=== PATIENT | female | born 1950 | race Caucasian/White ===

== ENCOUNTER 2017-12-07 14:27 | Inpatient (IN) | payer MEDICARE, OTHER ==
--- NOTE | 2017-12-07 14:56 | PDOC ---
Rapid Medical Evaluation Chief Complaint: Pain Time Seen by Provider: 12/07/17 14:55 Medical Evaluation: 12/07/17 14:55 The patient presents with a chief complaint of: abdominal pain I have performed a brief in-person evaluation of this patient. Pertinent physical exam findings: vss, pt has labs shows anemia, no blood in stool I have ordered the following: labs, type and screen The patient will proceed to the ED for further evaluation. Discharge Disposition - Referrals Referrals: Jessica Segal MD [Primary Care Provider] - - Patient Instructions - Post Discharge Activity
[2017-12-07] MEDS ORDERED: SUCRALFATE 1 GM TABLET (FP) PO ONE (15:49)
[2017-12-07] MEDS ORDERED: FAMOTIDINE IV 20 MG/12 ML VIAL IVPUSH ONE (15:49)
[2017-12-07 15:54] LABS: BASO % 0.8 % (0-2.0); EOS % 2.7 % (0-4.5); HEMATOCRIT 16.3 % (32.4-45.2); LYMPH % 12.4 % (8-40); MCH 36.1 pg (25.7-33.7); MCHC 34.9 g/dl (32.0-36.0); MEAN CELL VOLUME 103.3 fl (80-96); MEAN PLT VOLUME 6.7 fl (7.5-11.1); MONO % 10.7 % (3.8-10.2); NEUT % 73.4 % (42.8-82.8); PLATELET COUNT 186 K/MM3 (134-434); RBC 1.58 M/mm3 (3.60-5.2); RDW 16.7 % (11.6-15.6); WHITE BLOOD COUNT 2.5 K/mm3 (4.0-10.0)
[2017-12-07 16:00] LABS: HEMOGLOBIN 5.7 GM/dL (10.7-15.3)
--- NOTE | 2017-12-07 16:00 | PDOC ---
History of Present Illness - General History Source: Patient, Family - History of Present Illness Timing/Duration: reports: other Abdominal Pain Onset Location: reports: epigastric <Lanny MontagueRicardo - Last Filed: 12/07/17 18:38> <Светлана Carey - Last Filed: 12/14/17 11:26> - General Chief Complaint: Pain Stated Complaint: ABD PAIN/LOW H/H Time Seen by Provider: 12/07/17 14:55 Past History - Past Medical History COPD: No Diabetes: Yes HTN: Yes - Suicide/Smoking/Psychosocial Hx Smoking History: Never smoked Information on smoking cessation initiated: No Hx Alcohol Use: No Drug/Substance Use Hx: No Substance Use Type: None <SlovakAshley - Last Filed: 12/07/17 18:38> <Светлана Carey - Last Filed: 12/14/17 11:26> - Past Medical History Allergies/Adverse Reactions: Allergies Allergy/AdvReac Type Severity Reaction Status Date / Time No Known Allergies Allergy Verified 12/07/17 14:57 Home Medications: Ambulatory Orders NK [No Known Home Medication] 12/07/17 Review of Systems - Review of Systems Constitutional: No: Chills, Fever, Malaise, Weakness, Unexplained wgt Loss Respiratory: No: Shortness of Breath Cardiac (ROS): No: Chest Pain, Lightheadedness, Palpitations, Syncope ABD/GI: Yes: Constipated, Abdominal cramping. No: Diarrhea, Nausea, Rectal Bleeding, Vomiting, Tarry Stools <Lanny MontagueSusieYanet - Last Filed: 12/07/17 18:38> *Physical Exam - Vital Signs Last Vital Signs Temp Pulse Resp BP Pulse Ox 99.1 F 80 18 125/67 100 12/07/17 14:55 12/07/17 14:55 12/07/17 14:55 12/07/17 14:55 12/07/17 14:55 - Physical Exam General Appearance: Yes: Appropriately Dressed. No: Apparent Distress HEENT: positive: Normal Voice Neck: positive: Supple Respiratory/Chest: negative: Respiratory Distress Gastrointestinal/Abdominal: positive: Soft. negative: Tender Rectal Exam: positive: heme negative stool, normal exam. negative: melena Integumentary: positive: Dry, Warm Neurologic: positive: Fully Oriented, Alert, Normal Mood/Affect <SlovakLannyKayleen - Last Filed: 12/07/17 18:38> - Vital Signs Last Vital Signs Temp Pulse Resp BP Pulse Ox 98 F 71 20 146/72 99 12/14/17 06:06 12/14/17 06:07 12/14/17 06:06 12/14/17 06:06 12/14/17 06:07 <Светлана Carey - Last Filed: 12/14/17 11:26> Heart Score/ECG Review - ECG Intrepretation Comment:: 12/07/17 17:24 Twelve-lead EKG was performed and reviewed by me. There is normal sinus rhythm with a normal rate. The axis is normal. The intervals are normal. There are no ST or T wave abnormalities. Impression: Normal twelve-lead EKG <SlovakLannyKayleen - Last Filed: 12/07/17 18:38> ED Treatment Course - LABORATORY CBC & Chemistry Diagram: 12/07/17 15:47 12/07/17 15:47 <SlovakAshley - Last Filed: 12/07/17 18:38> - LABORATORY CBC & Chemistry Diagram: 12/14/17 06:30 12/14/17 06:40 - ADDITIONAL ORDERS Additional order review: 12/07/17 15:47 RBC 1.58 L MCV 103.3 H MCHC 34.9 RDW 16.7 H MPV 6.7 L Neutrophils % 73.4 Lymphocytes % 12.4 Monocytes % 10.7 H Eosinophils % 2.7 Basophils % 0.8 - Medications Given in the ED: ED Medications Discontinued Medications Generic Name Dose Route Start Last Admin Trade Name Mehrdadq PRN Reason Stop Dose Admin Acetaminophen 650 mg 12/07/17 18:35 12/07/17 18:35 Tylenol - PO 12/07/17 18:36 650 mg ONCE ONE Administration Acetaminophen 650 mg 12/07/17 21:18 12/07/17 22:21 Tylenol - PO 12/07/17 21:19 650 mg ONCE ONE Administration Acetaminophen 650 mg 12/11/17 06:39 12/11/17 06:47 Tylenol - PO 12/11/17 06:40 650 mg ONCE ONE Administration Amlodipine Besylate 5 mg 12/09/17 10:00 12/10/17 10:00 Norvasc - PO 5 mg DAILY NEENA Administration Bisacodyl 20 mg 12/11/17 12:00 12/11/17 11:39 Dulcolax - PO 12/11/17 12:01 Not Given ONCE ONE Bisacodyl 20 mg 12/13/17 17:15 12/13/17 17:28 Dulcolax - PO 12/13/17 17:16 20 mg ONCE ONE Administration Furosemide 20 mg 12/08/17 12:45 12/08/17 12:50 Lasix Injection - IVPUSH 12/08/17 12:46 20 mg ONCE ONE Administration Famotidine 20 mg in 12 mls @ 144 mls/hr 12/07/17 15:49 12/07/17 16:40 Pepcid 20 Mg/12 Ml Push IVPUSH 12/07/17 15:53 144 mls/hr ONCE ONE Administration Sodium Chloride 500 mls @ 500 mls/hr 12/07/17 16:18 12/07/17 16:40 Normal Saline - IV 12/07/17 17:17 500 mls/hr ASDIR STA Administration Sodium Chloride 1,000 mls @ 75 mls/hr 12/07/17 21:30 12/07/17 22:21 Normal Saline - IV 75 mls/hr ASDIR NEENA Administration Sodium Chloride 1,000 mls @ 40 mls/hr 12/08/17 20:00 12/08/17 21:30 Normal Saline - IV 12/09/17 19:59 40 mls/hr ASDIR NEENA Administration Cefepime HCl 2 gm/ Dextrose 100 mls @ 200 mls/hr 12/11/17 07:15 12/11/17 07: 23 IVPB 12/11/17 07:44 200 mls/hr ONCE ONE Administration Cefepime HCl 2 gm/ Dextrose 100 mls @ 200 mls/hr 12/12/17 02:00 12/12/17 03: 13 IVPB 200 mls/hr Q8H-IV NEENA Administration Vancomycin HCl 1,000 mg/ 250 mls @ 166.667 mls/hr 12/11/17 23:30 12/12/17 22: 15 Dextrose IVPB Not Given Q12H NEENA Vancomycin HCl 1,000 mg/ 250 mls @ 166.667 mls/hr 12/11/17 23:45 12/12/17 00: 45 Dextrose IVPB 12/12/17 01:14 166.667 mls/hr ONCE ONE Administration Vancomycin HCl 1,000 mg/ 250 mls @ 166.667 mls/hr 12/12/17 13:00 12/13/17 13: 00 Dextrose IVPB 166.667 mls/hr BID@0100,1300 NEENA Administration Insulin Aspart 1 vial 12/07/17 22:00 12/13/17 17:23 Novolog Vial Sliding Scale - SQ 2 units ACHS NEENA Administration Protocol Lidocaine HCl 5 mg 12/09/17 15:58 12/09/17 16:00 Xylocaine 1% SNB 12/09/17 15:59 5 mg ONCE ONE Administration Pantoprazole Sodium 40 mg 12/07/17 22:00 12/08/17 22:34 Protonix Iv IVPUSH 40 mg BID NEENA Administration Pantoprazole Sodium 40 mg 12/09/17 10:00 12/12/17 10:43 Protonix - PO 40 mg DAILY NEENA Administration Polyethylene Glycol/Electrolytes 4,000 ml 12/11/17 17:00 12/11/17 16:19 Golytely Solution - PO 12/11/17 17:01 Not Given ONCE ONE Polyethylene Glycol/Electrolytes 4,000 ml 12/13/17 15:00 12/13/17 16:00 Golytely Solution - PO 12/13/17 15:01 4,000 ml ONCE ONE Administration Sodium Polystyrene Sulfonate 30 gm 12/10/17 09:27 12/10/17 10:01 Kayexalate - PO 12/10/17 09:28 30 gm ONCE ONE Administration Sucralfate 1 gm 12/07/17 15:49 12/07/17 16:43 Carafate - PO 12/07/17 15:50 1 gm ONCE ONE Administration Sucralfate 1 gm 12/07/17 22:00 12/12/17 10:02 Carafate - PO 1 gm BID NEENA Administration <Светлана Carey - Last Filed: 12/14/17 11:26> Medical Decision Making - Medical Decision Making 12/07/17 15:51 67-year-old female, history of mild MR, diabetes, hypertension, non-compliant with aspirin per sister, sent in by Dr. Jessica Rand for severe anemia. Found to have H&H of 5/18 in office today after patient presented with epigastric pain of unclear duration that appears to worsen with food. Also found to have leukopenia to 2, PLTs wnl. pt currently taking dulcolax for constipation. Denies bright red blood per rectum, black stool, weakness, dizziness, nausea or vomiting. No history of anemia or prior blood transfusion in the past. Does not remember last colonoscopy. No unexplained weight loss. See exam Profound anemia on labs today Etiology unclear at this time, ?malignancy (luis in setting of leukopenia) vs erosive gastritis or ulcer luis given upper abd pain (no BRBPR/melena), non- compliant w/ asa Stable and well rajwinder w/ benign abd and guaiac neg brown stool on exam -IVF -labs -transfuse -GI c/s -admit 12/07/17 16:34 Pt's sister'liz Hernandez (HCP)-[phone] 12/07/17 17:25 H/H 01/09. Will transfuse 2 units of packed red blood cell and admit to hospitalist at this time 12/07/17 18:35 Patient spiked fever of 100.4 as per ED nurse. Will give Tylenol and repeat temperature prior to administering blood <Ashley Montague - Last Filed: 12/07/17 18:38> *DC/Admit/Observation/Transfer - Discharge Dispostion Admit: Yes <Ashley Montague - Last Filed: 12/07/17 18:38> - Attestations Physician Attestion: I reviewed the case with the mid-level practitioner and agree with the mid- level practitioner's assessment, diagnosis and disposition. <Светлана Carey - Last Filed: 12/14/17 11:26> Diagnosis at time of Disposition: Anemia Qualifiers: Anemia type: unspecified type Qualified Code(s): D64.9 - Anemia, unspecified - Discharge Dispostion Condition at time of disposition: Fair
[2017-12-07 16:08] LABS: INR 0.95 (0.82-1.09); PROTHROMBIN TIME (PATIENT) 10.7 SEC (9.98-11.88)
[2017-12-07] MEDS ORDERED: SODIUM CHLORIDE 500 ML IV STA (16:18)
[2017-12-07 16:22] LABS: ALBUMIN 3.7 g/dl (3.4-5.0); ALK PHOS 89 U/L (45-117); ANION GAP 6 (8-16); BILIRUBIN,TOTAL 2.2 mg/dL (0.2-1.0); BLOOD UREA NITROGEN 28 mg/dL (7-18); CHLORIDE 104 mmol/L (98-107); CO2 24 mmol/L (21-32); CREATININE 1.1 mg/dL (0.55-1.02); GLUCOSE,RANDOM 141 mg/dL (74-106); LIPASE 123 U/L (73-393); POTASSIUM 5.1 mmol/L (3.5-5.1); SGOT/AST 31 U/L (15-37); SGPT/ALT 20 U/L (12-78); SODIUM 134 mmol/L (136-145); TOT PROT 6.9 g/dl (6.4-8.2)
[2017-12-07] MEDS ORDERED: SUCRALFATE 1 GM TABLET (FP) ONE (16:36)
[2017-12-07] MEDS ORDERED: FAMOTIDINE 20 MG/50 ML IVPB 20 MG/50 ML MG IVPB ONE (16:36)
--- NOTE | 2017-12-07 17:37 | HP ---
CHIEF COMPLAINT: Anemia & Leukopenia PCP: Dr. 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 Patient went to her PCP's office for regular f/u visit and found to be anemia. Per sister, patient has been complaining of 2 week hx of intermittent epigastric and LUQ abdominal pain, nonradiating that worsens with food. Patient states the pain can come at any time. Patient endorses mild headache and dizziness. Patient denies fever, chills, nausea, hematemsis, bloody stool, bloody urine, ever having a colonoscopy. No history of IVDA, blood transfusions. She states her stools are yellow in color and urine is dark yellow in color. Family noticed yellowing of the skin. ER course was notable for: (1) labs (2) cxr (3) UA Recent Travel: moved from [place] in July PAST MEDICAL HISTORY: htn, dm PAST SURGICAL HISTORY: denies Social History: Smoking: denies Alcohol: denies Drugs: denies Family History: Denies fhx of cancer or liver disease Allergies No Known Allergies Allergy (Verified 12/07/17 14:57) HOME MEDICATIONS: Home Medications Medication Instructions Recorded NK [No Known Home Medication] 12/07/17 REVIEW OF SYSTEMS CONSTITUTIONAL: Absent: fever, chills, diaphoresis, generalized weakness, malaise, loss of appetite, weight change HEENT: Absent: rhinorrhea, nasal congestion, throat pain, throat swelling, difficulty swallowing, mouth swelling, ear pain, eye pain, visual changes CARDIOVASCULAR: Absent: chest pain, syncope, palpitations, irregular heart rate, lightheadedness , peripheral edema RESPIRATORY: Absent: cough, shortness of breath, dyspnea with exertion, orthopnea, wheezing, stridor, hemoptysis GASTROINTESTINAL: Absent: abdominal pain, abdominal distension, nausea, vomiting, diarrhea, constipation, melena, hematochezia, Jaundice GENITOURINARY: Absent: dysuria, frequency, urgency, hesitancy, hematuria, flank pain, genital pain MUSCULOSKELETAL: Absent: myalgia, arthralgia, joint swelling, back pain, neck pain SKIN: Absent: rash, itching, pallor HEMATOLOGIC/IMMUNOLOGIC: Absent: easy bleeding, easy bruising, lymphadenopathy, frequent infections ENDOCRINE: Absent: unexplained weight gain, unexplained weight loss, heat intolerance, cold intolerance NEUROLOGIC: Absent: headache, focal weakness or paresthesias, dizziness, unsteady gait, seizure, mental status changes, bladder or bowel incontinence PSYCHIATRIC: Absent: anxiety, depression, suicidal or homicidal ideation, hallucinations. PHYSICAL EXAMINATION Vital Signs - 24 hr 12/07/17 14:55 Temperature 99.1 F Pulse Rate 80 Respiratory 18 Rate Blood Pressure 125/67 O2 Sat by Pulse 100 Oximetry (%) GENERAL: Awake, alert. +Jaundice HEAD: Normal with no signs of trauma. EYES: Pupils equal, round and reactive to light, extraocular movements intact, + scleral icterus, conjunctiva clear. No lid lag. EARS, NOSE, THROAT: Oropharynx clear without exudates. +sublingual jaundice NECK: Normal range of motion, supple without lymphadenopathy, JVD, or masses. LUNGS: Breath sounds equal, clear to auscultation bilaterally. No wheezes, and no crackles. No accessory muscle use. HEART: Regular rate and rhythm, normal S1 and S2 without murmur, rub or gallop. ABDOMEN: Soft, +diffuse tenderness, not distended, normoactive bowel sounds, no guarding, no rebound, no masses. No hepatomegaly or splenomegaly. UPPER EXTREMITIES: 2+ pulses, warm, well-perfused. No cyanosis. No clubbing. No peripheral edema. LOWER EXTREMITIES: 2+ pulses, warm, well-perfused. No calf tenderness. No peripheral edema. NEUROLOGICAL: Cranial nerves II-XII intact SKIN: Warm, dry, normal turgor, no rashes or lesions noted, normal capillary refill. +Jaundice Laboratory Results - last 24 hr 12/07/17 12/07/17 12/07/17 15:45 15:45 15:47 WBC 2.5 L RBC 1.58 L Hgb 5.7 L* Hct 16.3 L MCV 103.3 H MCH 36.1 H MCHC 34.9 RDW 16.7 H Plt Count 186 MPV 6.7 L Neutrophils % 73.4 Lymphocytes % 12.4 Monocytes % 10.7 H Eosinophils % 2.7 Basophils % 0.8 PT with INR 10.70 INR 0.95 Sodium Potassium Chloride Carbon Dioxide Anion Gap BUN Creatinine Creat Clearance w eGFR Random Glucose Calcium Total Bilirubin AST ALT Alkaline Phosphatase Total Protein Albumin Lipase Stool Occult Blood Negative Blood Type Antibody Screen Crossmatch 12/07/17 12/07/17 12/07/17 15:47 15:47 16:02 WBC RBC Hgb Hct MCV MCH MCHC RDW Plt Count MPV Neutrophils % Lymphocytes % Monocytes % Eosinophils % Basophils % PT with INR INR Sodium 134 L Potassium 5.1 Chloride 104 Carbon Dioxide 24 Anion Gap 6 L BUN 28 H Creatinine 1.1 H Creat Clearance w eGFR 49.69 Random Glucose 141 H Calcium 8.0 L Total Bilirubin 2.2 H AST 31 ALT 20 Alkaline Phosphatase 89 Total Protein 6.9 Albumin 3.7 Lipase 123 Stool Occult Blood Blood Type O POSITIVE O POSITIVE Antibody Screen Negative Crossmatch See Detail ASSESSMENT/PLAN: 67 year old F with pmh of HTN and DM presented from PCP's office with anemia and leukopenia #Anemia & Leukopenia with jaundice, normocytic/megaloblastic anemia vs ? hemolysis vs hepatitis vs peptic ulcer -wbc 2.5, hgb 5.7 -UA with 4+ urobilinogen -Direct bilirubin -iron studies -fibrinogen -GGT -Haptoglobin -LDH -HIV -Hepatitis panel -Stool for ova/parasties -Protonix 40 bid -carafate 1g bid -U/s abdomen -GI Consult -Heme Consult #HTN -hold home medications -monitor bp #DM -Bgm achs -iss achs #FEN/GI. PPx -No IVF -wnl -regular diet -scd's -protonix Visit type - Emergency Visit Emergency Visit: Yes Care time: The patient presented to the Emergency Department on the above date and was hospitalized for further evaluation of their emergent condition. - New Patient This patient is new to me today: Yes Date on this admission: 12/07/17 - Critical Care Critical Care patient: No Hospitalist Screening - Colonoscopy Questionnaire Colonoscopy Questionnaire: Colonoscopy Questionnaire - Patient: 50 - 75 years old and never had a screening colonoscopy: No History of colon or rectal polyps, or CA: No History of IBD, Crohn's disease or UC: No History of abdominal radiation therapy as a child: No - Relative: 1 with colon or rectal CA, or polyps at age 60 or younger: No Colon or rectal CA diagnosed at age 45 or younger: No Multiple relatives with colon or rectal CA: No - Outcome: Screening Result: Negative Screen
[2017-12-07 17:41] LABS: URINE APPEARANCE CLEAR; URINE BILIRUBIN NEGATIVE (<2.0 mg/dL); URINE BLOOD NEGATIVE (NEGATIVE); URINE COLOR YELLOW; URINE GLUCOSE (UA) NEGATIVE (NEGATIVE); URINE KETONE NEGATIVE (NEGATIVE); URINE PROTEIN 1+ (NEGATIVE)
[2017-12-07 17:42] LABS: EPI CELLS RARE /HPF (FEW); URINE BACTERIA RARE /hpf (NONE SEEN); URINE HYALINE CAST 4 /lpf; URINE LEUK ESTERASE NEGATIVE (NEGATIVE); URINE MUCUS RARE; URINE NITRITE NEGATIVE (NEGATIVE); URINE UROBILINOGEN 4.0 E.U/dl mg/dL (0.2-1.0)
[2017-12-07] MEDS ORDERED: ACETAMINOPHEN 325 MG TABLET (FP) PO ONE ×2 (18:35→21:18)
[2017-12-07] MEDS ORDERED: ACETAMINOPHEN 325 MG TABLET (FP) ONE (18:35)
--- NOTE | 2017-12-07 18:44 | PN ---
Teaching Attending Note Name of Resident: Jacob Paul ATTENDING PHYSICIAN STATEMENT I saw and evaluated the patient. I reviewed the resident's note and discussed the case with the resident. I agree with the resident's findings and plan as documented. SUBJECTIVE: Patient is a 67yo female as per her sister started to have cough for the past 2 weeks with worsening symptoms today. OBJECTIVE: Vital Signs Temperature 99.1 F 12/07/17 14:55 Pulse Rate 80 12/07/17 14:55 Respiratory Rate 18 12/07/17 14:55 Blood Pressure 125/67 12/07/17 14:55 O2 Sat by Pulse Oximetry (%) 100 12/07/17 14:55 GENERAL: Awake, alert. +Jaundice HEAD: Normal with no signs of trauma. EYES: Pupils equal, round and reactive to light, extraocular movements intact, + scleral icterus, conjunctiva clear. No lid lag. EARS, NOSE, THROAT: Oropharynx clear without exudates. +sublingual jaundice NECK: Normal range of motion, supple without lymphadenopathy, JVD, or masses. LUNGS: Breath sounds equal, clear to auscultation bilaterally. No wheezes, and no crackles. No accessory muscle use. HEART: Regular rate and rhythm, normal S1 and S2 without murmur, rub or gallop. ABDOMEN:is yellow , Soft, +diffuse tenderness, not distended, normoactive bowel sounds, no guarding, no rebound, no masses appreciated EXTREMITIES: 2+ pulses, warm, well-perfused. No cyanosis. No clubbing. No peripheral edema. LOWER EXTREMITIES: 2+ pulses, warm, well-perfused. No calf tenderness. No peripheral edema. NEUROLOGICAL: Cranial nerves II-XII intact SKIN: Warm, dry, normal turgor, no rashes or lesions noted, normal capillary refill. +Jaundice CBCD WBC 2.5 K/mm3 (4.0-10.0) L 12/07/17 15:47 RBC 1.58 M/mm3 (3.60-5.2) L 12/07/17 15:47 Hgb 5.7 GM/dL (10.7-15.3) L* 12/07/17 15:47 Hct 16.3 % (32.4-45.2) L 12/07/17 15:47 MCV 103.3 fl (80-96) H 12/07/17 15:47 MCHC 34.9 g/dl (32.0-36.0) 12/07/17 15:47 RDW 16.7 % (11.6-15.6) H 12/07/17 15:47 Plt Count 186 K/MM3 (134-434) 12/07/17 15:47 MPV 6.7 fl (7.5-11.1) L 12/07/17 15:47 CMP Sodium 134 mmol/L (136-145) L 12/07/17 15:47 Potassium 5.1 mmol/L (3.5-5.1) 12/07/17 15:47 Chloride 104 mmol/L (98-107) 12/07/17 15:47 Carbon Dioxide 24 mmol/L (21-32) 12/07/17 15:47 Anion Gap 6 (8-16) L 12/07/17 15:47 BUN 28 mg/dL (7-18) H 12/07/17 15:47 Creatinine 1.1 mg/dL (0.55-1.02) H 12/07/17 15:47 Creat Clearance w eGFR 49.69 (>60) 12/07/17 15:47 Random Glucose 141 mg/dL (74-106) H 12/07/17 15:47 Calcium 8.0 mg/dL (8.5-10.1) L 12/07/17 15:47 Total Bilirubin 2.2 mg/dL (0.2-1.0) H 12/07/17 15:47 AST 31 U/L (15-37) 12/07/17 15:47 ALT 20 U/L (12-78) 12/07/17 15:47 Alkaline Phosphatase 89 U/L (45-117) 12/07/17 15:47 Total Protein 6.9 g/dl (6.4-8.2) 12/07/17 15:47 Albumin 3.7 g/dl (3.4-5.0) 12/07/17 15:47 Current Medications Generic Name Dose Route Start Last Admin Trade Name Freq PRN Reason Stop Dose Admin Pantoprazole Sodium 40 mg 12/07/17 22:00 Protonix Iv IVPUSH BID NEENA Home Medications Medication Instructions Recorded NK [No Known Home Medication] 12/07/17 ASSESSMENT AND PLAN: Patient is a 67 year old Female with pmhx of HTN and DM presented from PCP's office with anemia and leukopenia as per sister patient has been coughing for 2 weeks with worsening symptoms. # Acute Anemia presented with level of 5.7 Leukopenia of 2.5K with jaundice can't r/o hemolysis ,r/o G6PD defeciency , will transfuse her 2 units, ordered hemolysis w/u , GI and Hematolgy consult, periperal smears ordered, hepatitis panel, b12, folic acid, fe panel. #HTN monitor for now #DM SS with coverage US of abdomen r/o choldecholithiasis Hemolysis w/u transfusion 2 units Devi, GI Hem/onc repeat labs in am periperal smear hepatitis panel B12,folic acid, Fe panel level follow CXR DVT Px: SCds only
[2017-12-07 21:20] LABS: ADD RBC MORPHOLOGY YES
[2017-12-07 21:21] LABS: ANISOCYTOSIS 1+; PLATELET ESTIMATE ADEQUATE
[2017-12-07] MEDS ORDERED: SODIUM CHLORIDE 1,000 ML IV SCH (21:30)
[2017-12-07] MEDS: PANTOPRAZOLE SODIUM 40 MG VIAL IVPUSH SCH (22:21)
[2017-12-07] MEDS: INSULIN SLIDING SCALE (NOVOLOG) 1 VIAL SQ SCH (22:23)
[2017-12-07 23:32] VITALS: BMI 24.1
[2017-12-07] MEDS: SUCRALFATE 1 GM TABLET (FP) PO SCH (23:36)
[2017-12-08] MEDS: INSULIN SLIDING SCALE (NOVOLOG) 1 VIAL SQ SCH ×4 (06:44→22:33)
[2017-12-08] MEDS ORDERED: PT OWN MED DRAWER 7, Y5N ONE (11:48)
[2017-12-08] MEDS: SUCRALFATE 1 GM TABLET (FP) PO SCH ×2 (11:51→22:31)
[2017-12-08] MEDS: PANTOPRAZOLE SODIUM 40 MG VIAL IVPUSH SCH ×2 (11:51→22:34)
[2017-12-08 12:38] LABS: BASO % 0.6 % (0-2.0); EOS % 2.2 % (0-4.5); HEMATOCRIT 24.7 % (32.4-45.2); HEMOGLOBIN 8.9 GM/dL (10.7-15.3); LYMPH % 13.1 % (8-40); MCH 36.8 pg (25.7-33.7); MCHC 35.9 g/dl (32.0-36.0); MEAN CELL VOLUME 102.6 fl (80-96); MEAN PLT VOLUME 6.3 fl (7.5-11.1); MONO % 7.8 % (3.8-10.2); NEUT % 76.3 % (42.8-82.8); PLATELET COUNT 154 K/MM3 (134-434); RBC 2.41 M/mm3 (3.60-5.2); RDW 18.7 % (11.6-15.6); WHITE BLOOD COUNT 2.3 K/mm3 (4.0-10.0)
[2017-12-08] MEDS ORDERED: FUROSEMIDE 40 MG/4 ML INJECTABLE VIAL IVPUSH ONE (12:45)
[2017-12-08 12:54] LABS: ALBUMIN 3.6 g/dl (3.4-5.0); ANION GAP 3 (8-16); BILIRUBIN,TOTAL 2.6 mg/dL (0.2-1.0); BLOOD UREA NITROGEN 19 mg/dL (7-18); CALCIUM 7.7 mg/dL (8.5-10.1); CHLORIDE 106 mmol/L (98-107); CO2 25 mmol/L (21-32); GLUCOSE,RANDOM 134 mg/dL (74-106); LDH 366 U/L (84-246); MAGNESIUM 2.8 mg/dL (1.8-2.4); PHOSPHOROUS 4.2 mg/dL (2.5-4.9); POTASSIUM 4.9 mmol/L (3.5-5.1); SGOT/AST 27 U/L (15-37); SGPT/ALT 18 U/L (12-78); SODIUM 134 mmol/L (136-145); TOT PROT 6.8 g/dl (6.4-8.2)
[2017-12-08 12:58] LABS: BILIRUBIN,DIRECT 0.5 mg/dL (0.0-0.2)
[2017-12-08 13:00] LABS: INR 0.89 (0.82-1.09); PROTHROMBIN TIME (PATIENT) 10.1 SEC (9.98-11.88)
[2017-12-08 13:03] LABS: ACTIVATED PTT 26.5 SECONDS (26.9-34.4); ALK PHOS 86 U/L (45-117)
--- NOTE | 2017-12-08 16:47 | PN ---
Physical Exam: SUBJECTIVE: Patient seen and examined Patient is sitting on the chair continues to cough. OBJECTIVE: Vital Signs Temperature 99.8 F H 12/08/17 14:00 Pulse Rate 86 12/08/17 14:00 Respiratory Rate 18 12/08/17 14:00 Blood Pressure 133/68 12/08/17 14:00 O2 Sat by Pulse Oximetry (%) 98 12/08/17 09:00 GENERAL: Awake, alert. +Jaundice HEAD: Normal with no signs of trauma. EYES: Pupils equal, round and reactive to light, extraocular movements intact, + scleral icterus, conjunctiva clear. No lid lag. EARS, NOSE, THROAT: Oropharynx clear without exudates. +sublingual jaundice NECK: Normal range of motion, supple without lymphadenopathy, JVD, or masses. LUNGS: decreased Breath sounds equally bl , no wheezes, and no crackles. No accessory muscle use. HEART: Regular rate and rhythm, normal S1 and S2 without murmur, rub or gallop. ABDOMEN:is yellow , Soft, +diffuse tenderness, not distended, normoactive bowel sounds, no guarding, no rebound, no masses appreciated , no hepatosplenomegaly EXTREMITIES: 2+ pulses, warm, well-perfused. No cyanosis. No clubbing. No peripheral edema. NEUROLOGICAL: Cranial nerves II-XII intact SKIN: Warm, dry, normal turgor, no rashes or lesions noted, normal capillary refill. +Jaundice CBCD WBC 2.3 K/mm3 (4.0-10.0) L 12/08/17 12:15 RBC 2.41 M/mm3 (3.60-5.2) L D 12/08/17 12:15 Hgb 8.9 GM/dL (10.7-15.3) L D 12/08/17 12:15 Hct 24.7 % (32.4-45.2) L D 12/08/17 12:15 MCV 102.6 fl (80-96) H 12/08/17 12:15 MCHC 35.9 g/dl (32.0-36.0) 12/08/17 12:15 RDW 18.7 % (11.6-15.6) H D 12/08/17 12:15 Plt Count 154 K/MM3 (134-434) 12/08/17 12:15 MPV 6.3 fl (7.5-11.1) L 12/08/17 12:15 CMP Sodium 134 mmol/L (136-145) L 12/08/17 12:15 Potassium 4.9 mmol/L (3.5-5.1) 12/08/17 12:15 Chloride 106 mmol/L (98-107) 12/08/17 12:15 Carbon Dioxide 25 mmol/L (21-32) 12/08/17 12:15 Anion Gap 3 (8-16) L 12/08/17 12:15 BUN 19 mg/dL (7-18) H 12/08/17 12:15 Creatinine 1.0 mg/dL (0.55-1.02) 12/08/17 12:15 Creat Clearance w eGFR 55.47 (>60) 12/08/17 12:15 Random Glucose 134 mg/dL (74-106) H 12/08/17 12:15 Calcium 7.7 mg/dL (8.5-10.1) L 12/08/17 12:15 Total Bilirubin 2.6 mg/dL (0.2-1.0) H 12/08/17 12:15 AST 27 U/L (15-37) 12/08/17 12:15 ALT 18 U/L (12-78) 12/08/17 12:15 Alkaline Phosphatase 86 U/L (45-117) 12/08/17 12:15 Total Protein 6.8 g/dl (6.4-8.2) 12/08/17 12:15 Albumin 3.6 g/dl (3.4-5.0) 12/08/17 12:15 Current Medications Generic Name Dose Route Start Last Admin Trade Name Freq PRN Reason Stop Dose Admin Sodium Chloride 1,000 mls @ 75 mls/hr 12/07/17 21:30 12/07/17 22:21 Normal Saline - IV 75 mls/hr ASDIR NEENA Administration Insulin Aspart 1 vial 12/07/17 22:00 12/08/17 11:52 Novolog Vial Sliding Scale - SQ Not Given ACHS NEENA Protocol Pantoprazole Sodium 40 mg 12/07/17 22:00 12/08/17 11:51 Protonix Iv IVPUSH 40 mg BID NEENA Administration Sucralfate 1 gm 12/07/17 22:00 12/08/17 11:51 Carafate - PO 1 gm BID NEENA Administration Home Medications Medication Instructions Recorded NK [No Known Home Medication] 12/07/17 US result of abdomen: positive for small gall stone , no Hepatosplenomegaly Patient is a 67 year old Female with pmhx of HTN and DM presented from PCP's office with anemia and leukopenia as per sister patient has been coughing for 2 weeks with worsening symptoms. # Acute Anemia with hemolysis with level of 5.7--> 8.9 now s/p transfusion of 2 units , Leukopenia of 2.5K with jaundice ,r/o G6PD deficiency ,Direct [place] test is positive, antibody is pending , discussed with Oncology can't r/o lympho -proliferative disorder, G6PD, Cxr shows multiple nodules bl , will get CT of the chest to r/o malignancy follow chest CT. Follow stool ova and parasite and follow hepatitis panel. # HTN post transfusion given a dose of Lasix 20mg IV , will continue with Norvasc 5mg po daily #DM SS with coverage DVT Px: SCds only GI PX; protonix and sucrafate Visit type - Emergency Visit Emergency Visit: Yes ED Registration Date: 12/07/17 Care time: The patient presented to the Emergency Department on the above date and was hospitalized for further evaluation of their emergent condition. - New Patient This patient is new to me today: No - Critical Care Critical Care patient: No - Discharge Referral Physician Referral: Ilir Sol MD ([facility])
--- NOTE | 2017-12-08 17:08 | CONSULT ---
Consult Consult Specialty:: Hematology - History of Present Illness History of Present Illness: 67 year old F with pmh of HTN and DM presented from PCP's office with anemia. Patient went to her PCP's office for regular f/u visit and found to be anemia. Per sister, patient has been complaining of 2 week hx of intermittent epigastric and LUQ abdominal pain, nonradiating that worsens with food. Patient states the pain can come at any time. Patient endorses mild headache and dizziness. Patient denies fever, chills, nausea, hematemsis, bloody stool, bloody urine, ever having a colonoscopy. No history of IVDA, blood transfusions. She states her stools are yellow in color and urine is dark yellow in color. Family noticed yellowing of the skin. - History Source History Provided By: Family Member - Past Medical History ...: No - Alcohol/Substance Use Hx Alcohol Use: No - Smoking History Smoking history: Never smoked Home Medications - Allergies Allergies/Adverse Reactions: Allergies Allergy/AdvReac Type Severity Reaction Status Date / Time No Known Allergies Allergy Verified 12/07/17 14:57 - Home Medications Home Medications: Ambulatory Orders NK [No Known Home Medication] 12/07/17 Review of Systems - Review of Systems Constitutional: denies: Chills, Diaphoresis, Fever, Lethargy, Loss of Appetite HENT: denies: Difficult Swallowing Respiratory: denies: Cough, Exercise Intolerance Gastrointestinal: denies: Abdominal Pain, Bloating Neurological: reports: No Symptoms Hematology/Lymphatic: denies: Easily Bruised, Excessive Bleeding, Swollen Glands Physical Exam Vital Signs: Vital Signs Temperature 99.8 F H 12/08/17 14:00 Pulse Rate 86 12/08/17 14:00 Respiratory Rate 18 12/08/17 14:00 Blood Pressure 133/68 12/08/17 14:00 O2 Sat by Pulse Oximetry (%) 98 12/08/17 09:00 Constitutional: Yes: Well Nourished, No Distress Eyes: Yes: Conjunctiva Clear, Sclera Icterus HENT: Yes: Atraumatic, Normocephalic Neck: Yes: Supple Cardiovascular: Yes: Regular Rate and Rhythm Respiratory: Yes: Regular, CTA Bilaterally Gastrointestinal: Yes: Normal Bowel Sounds, Soft, Abdomen, Obese Extremities: Yes: WNL Edema: No Neurological: Yes: Alert, Other (alert and awake, doesn't know the place and date. when asked , directs to sister as to most questions) Labs: CBC, BMP 12/08/17 12:15 12/08/17 12:15 Imaging - Results Ultrasound: Report Reviewed Assessment/Plan Direct coomb's positive hemolytic anemia. Antibody identification is pending. Underlying lympho-proliferative disorder to be ruled out ?infection induced ?h/o G6PD or others no hepato-splenomegaly for CT scans /BM pathology hold off on steroids today detail discussion with the sister/weekend caregiver with help of [employer] full time staff interpreter ( Pt is apparently "dependant" on the sister as pt is "mentally challenged").
[2017-12-08] MEDS ORDERED: SODIUM CHLORIDE 1,000 ML IV SCH (20:00)
--- NOTE | 2017-12-08 21:35 | CON.GI ---
Consult Consult Specialty:: Gastroenterology ( covering for Dr Quinonez) Referred by:: RANJITH Pike Reason for Consultation:: anemia - History of Present Illness Chief Complaint: abdominal pain History of Present Illness: 67F is admitted with c/o diffuse abdominal pain and vomiting. She denies melena or hematemesis. I attempted to use [employer] director of social services but the patient refused to take the phone so this history is obtained with the help of a Maori speaking nurse. She denies ever having had an EGD or a colonoscopy. When asked about her medical history she deferred me to her sister for this information. - History Source History Provided By: Patient Limitations to Obtaining History: Poor Historian - Past Medical History Cardio/Vascular: Yes: HTN ...: No Endocrine: Yes: Diabetes Mellitus - Past Surgical History Past Surgical History: Yes: None - Alcohol/Substance Use Hx Alcohol Use: No - Smoking History Smoking history: Never smoked - Social History Usual Living Arrangement: With Significant Other (with sister) ADL: Family Assistance Place of : Other ([place]) Home Medications - Allergies Allergies/Adverse Reactions: Allergies Allergy/AdvReac Type Severity Reaction Status Date / Time No Known Allergies Allergy Verified 12/07/17 14:57 - Home Medications Home Medications: Ambulatory Orders NK [No Known Home Medication] 12/07/17 Family Disease History - Family Disease History Family History: Unable to Obtain Review of Systems Unable to obtain ROS, reason: patient does not elabora Physical Exam-GI Vital Signs: Vital Signs Temperature 99.7 F H 12/08/17 18:00 Pulse Rate 80 12/08/17 18:00 Respiratory Rate 16 12/08/17 18:00 Blood Pressure 134/73 12/08/17 18:00 O2 Sat by Pulse Oximetry (%) 98 12/08/17 09:00 CBC,CMP WBC 2.3 K/mm3 (4.0-10.0) L 12/08/17 12:15 RBC 2.41 M/mm3 (3.60-5.2) L D 12/08/17 12:15 Hgb 8.9 GM/dL (10.7-15.3) L D 12/08/17 12:15 Hct 24.7 % (32.4-45.2) L D 12/08/17 12:15 MCV 102.6 fl (80-96) H 12/08/17 12:15 MCH 36.8 pg (25.7-33.7) H 12/08/17 12:15 MCHC 35.9 g/dl (32.0-36.0) 12/08/17 12:15 RDW 18.7 % (11.6-15.6) H D 12/08/17 12:15 Plt Count 154 K/MM3 (134-434) 12/08/17 12:15 MPV 6.3 fl (7.5-11.1) L 12/08/17 12:15 Neutrophils % 76.3 % (42.8-82.8) 12/08/17 12:15 Lymphocytes % 13.1 % (8-40) 12/08/17 12:15 Monocytes % 7.8 % (3.8-10.2) 12/08/17 12:15 Eosinophils % 2.2 % (0-4.5) 12/08/17 12:15 Basophils % 0.6 % (0-2.0) 12/08/17 12:15 Platelet Estimate Adequate 12/07/17 15:47 Anisocytosis 1+ 12/07/17 15:47 Retic Count 6.80 % (0.5-1.5) H D 12/08/17 12:15 Sodium 134 mmol/L (136-145) L 12/08/17 12:15 Potassium 4.9 mmol/L (3.5-5.1) 12/08/17 12:15 Chloride 106 mmol/L (98-107) 12/08/17 12:15 Carbon Dioxide 25 mmol/L (21-32) 12/08/17 12:15 Anion Gap 3 (8-16) L 12/08/17 12:15 BUN 19 mg/dL (7-18) H 12/08/17 12:15 Creatinine 1.0 mg/dL (0.55-1.02) 12/08/17 12:15 Creat Clearance w eGFR 55.47 (>60) 12/08/17 12:15 POC Glucometer 138 UNITS (80-120) 12/08/17 16:38 Random Glucose 134 mg/dL (74-106) H 12/08/17 12:15 Calcium 7.7 mg/dL (8.5-10.1) L 12/08/17 12:15 Phosphorus 4.2 mg/dL (2.5-4.9) 12/08/17 12:15 Magnesium 2.8 mg/dL (1.8-2.4) H 12/08/17 12:15 Ferritin 25.638 ng/ml (6.9-282.5) 12/07/17 16:43 Total Bilirubin 2.6 mg/dL (0.2-1.0) H 12/08/17 12:15 Direct Bilirubin 0.5 mg/dL (0.0-0.2) H 12/08/17 12:15 GGT 17 U/L (5-85) 12/07/17 18:59 AST 27 U/L (15-37) 12/08/17 12:15 ALT 18 U/L (12-78) 12/08/17 12:15 Alkaline Phosphatase 86 U/L (45-117) 12/08/17 12:15 LD Total 366 U/L (84-246) H 12/08/17 12:15 Total Protein 6.8 g/dl (6.4-8.2) 12/08/17 12:15 Albumin 3.6 g/dl (3.4-5.0) 12/08/17 12:15 Lipase 123 U/L (73-393) 12/07/17 15:47 Vitamin B12 863 pg/ml (180-914) 12/08/17 12:15 TSH 0.59 uIU/ml (0.358-3.74) 12/08/17 12:15 Current Medications Generic Name Dose Route Start Last Admin Trade Name Freq PRN Reason Stop Dose Admin Amlodipine Besylate 5 mg 12/09/17 10:00 Norvasc - PO DAILY NEENA Sodium Chloride 1,000 mls @ 40 mls/hr 12/08/17 20:00 Normal Saline - IV 12/09/17 19:59 ASDIR NEENA Insulin Aspart 1 vial 12/07/17 22:00 12/08/17 16:55 Novolog Vial Sliding Scale - SQ Not Given ACHS NEENA Protocol Pantoprazole Sodium 40 mg 12/07/17 22:00 12/08/17 11:51 Protonix Iv IVPUSH 40 mg BID NEENA Administration Sucralfate 1 gm 12/07/17 22:00 12/08/17 11:51 Carafate - PO 1 gm BID NEENA Administration Constitutional: Yes: Anxious Eyes: Yes: Sclera Icterus HENT: Yes: Atraumatic Neck: Yes: Trachea Midline Cardiovascular: Yes: Regular Rate and Rhythm Respiratory: Yes: CTA Bilaterally Gastrointestinal Inspection: Yes: WNL ...Auscultate: Yes: Normoactive Bowel Sounds ...Palpate: Yes: Soft, Other (nontender) ...Rectal Exam: Yes: Guaiac Negative, Sphincter Tone Normal Edema: No Peripheral Pulses WNL: Yes Neurological: Yes: Alert Labs: CBC, BMP 12/08/17 12:15 12/08/17 12:15 INR, PTT INR 0.89 (0.82-1.09) 12/08/17 12:15 Fibrinogen 363.0 mg/dL (238-498) 12/07/17 21:10 Laboratory Tests 12/07/17 12/07/17 12/08/17 15:42 15:47 12:15 WBC 2.5 L Hgb 5.7 L* Hct 16.3 L MCV 103.3 H Plt Count 186 Retic Count 9.62 H Total Bilirubin 2.6 H Direct Bilirubin LD Total 366 H Vitamin B12 12/08/17 12:15 WBC Hgb Hct MCV Plt Count Retic Count Total Bilirubin Direct Bilirubin 0.5 H LD Total Vitamin B12 863 Problem List - Problems (1) Anemia Assessment/Plan: Given the patient's elevated reticulocyte count, MCV and LDH and her guaiac negative status I believe that her anemia is hemolytic rather than that due to GI bleeding. Hematology has alreadty ordered appropriate testing Code(s): D64.9 - ANEMIA, UNSPECIFIED Qualifiers: Anemia type: unspecified type Qualified Code(s): D64.9 - Anemia, unspecified (2) Indirect hyperbilirubinemia Code(s): E80.6 - OTHER DISORDERS OF BILIRUBIN METABOLISM (3) Abdominal pain Assessment/Plan: There is no free air or obstruction on the plain film and she is currently nontender and no longer vomiting so there does not appear to be a crisis. Her limited ability to provide history limits being able to substantiate any string diagnosis beyond a viral gastroenteritis. I will order a sonogram and empirically start a PPI. I hope that her sister will be able to provide more data tomorrow. Code(s): R10.9 - UNSPECIFIED ABDOMINAL PAIN Qualifiers: Abdominal location: generalized Qualified Code(s): R10.84 - Generalized abdominal pain (4) Vomiting Code(s): R11.10 - VOMITING, UNSPECIFIED Qualifiers: Vomiting Intractability: non-intractable Assessment/Plan Dr Quinonez will return 12/10.
[2017-12-08] MEDS ORDERED: INSULIN (NOVOLOG) ASPART 100 UNITS/ML 10ML VIAL ONE (22:08)
[2017-12-09] MEDS: INSULIN SLIDING SCALE (NOVOLOG) 1 VIAL SQ SCH ×4 (06:30→22:16)
[2017-12-09 08:27] LABS: CHLORIDE 109 mmol/L (98-107); POTASSIUM 4.6 mmol/L (3.5-5.1); SODIUM 139 mmol/L (136-145)
[2017-12-09 08:48] LABS: ALBUMIN 3.1 g/dl (3.4-5.0); ALK PHOS 71 U/L (45-117); ANION GAP 6 (8-16); BILIRUBIN,DIRECT 0.3 mg/dL (0.0-0.2); BILIRUBIN,TOTAL 1.1 mg/dL (0.2-1.0); BLOOD UREA NITROGEN 17 mg/dL (7-18); CALCIUM 7.3 mg/dL (8.5-10.1); CO2 24 mmol/L (21-32); CREATININE 0.9 mg/dL (0.55-1.02); GLUCOSE,RANDOM 100 mg/dL (74-106); SGOT/AST 19 U/L (15-37); SGPT/ALT 14 U/L (12-78); TOT PROT 5.7 g/dl (6.4-8.2)
--- NOTE | 2017-12-09 09:11 | PN ---
Physical Exam: SUBJECTIVE: Patient seen and examined. She has no complaints. OBJECTIVE: Vital Signs Period Temp Pulse Resp BP Sys/Rodrigues Pulse Ox Last 24 Hr 98.2 F-100.7 F 58-86 16-18 133-174/54-83 98 GENERAL: The patient is awake, alert, and in no acute distress. HEENT: Mild icterus of sclerae. LUNGS: Breath sounds equal, clear to auscultation bilaterally, no wheezes, no crackles, no accessory muscle use. HEART: Regular rate and rhythm, S1, S2 without murmur, rub or gallop. ABDOMEN: Soft, nontender, nondistended, normoactive bowel sounds, no guarding, no rebound, no hepatosplenomegaly, no masses. EXTREMITIES: 2+ pulses, warm, well-perfused, no edema. Laboratory Results - last 24 hr 12/08/17 12/08/17 12/08/17 11:21 12:15 12:15 WBC 2.3 L RBC 2.41 L D Hgb 8.9 L D Hct 24.7 L D MCV 102.6 H MCH 36.8 H MCHC 35.9 RDW 18.7 H D Plt Count 154 MPV 6.3 L Neutrophils % 76.3 Lymphocytes % 13.1 Monocytes % 7.8 Eosinophils % 2.2 Basophils % 0.6 Retic Count PT with INR 10.10 INR 0.89 PTT (Actin FS) 26.5 L Sodium Potassium Chloride Carbon Dioxide Anion Gap BUN Creatinine Creat Clearance w eGFR POC Glucometer 128 Random Glucose Calcium Phosphorus Magnesium Total Bilirubin Direct Bilirubin AST ALT Alkaline Phosphatase LD Total C-Reactive Protein Total Protein Albumin Total Amylase Lipase Vitamin B12 TSH Blood Type Antibody Screen Direct Antiglob Test Crossmatch 12/08/17 12/08/17 12/08/17 12:15 12:15 12:15 WBC RBC Hgb Hct MCV MCH MCHC RDW Plt Count MPV Neutrophils % Lymphocytes % Monocytes % Eosinophils % Basophils % Retic Count 6.80 H D PT with INR INR PTT (Actin FS) Sodium 134 L Potassium 4.9 Chloride 106 Carbon Dioxide 25 Anion Gap 3 L BUN 19 H Creatinine 1.0 Creat Clearance w eGFR 55.47 POC Glucometer Random Glucose 134 H Calcium 7.7 L Phosphorus 4.2 Magnesium 2.8 H Total Bilirubin 2.6 H Direct Bilirubin 0.5 H AST 27 ALT 18 Alkaline Phosphatase 86 LD Total 366 H C-Reactive Protein Total Protein 6.8 Albumin 3.6 Total Amylase Lipase Vitamin B12 863 TSH 0.59 Blood Type Antibody Screen Direct Antiglob Test Crossmatch 12/08/17 12/08/17 12/08/17 12:15 16:38 22:32 WBC RBC Hgb Hct MCV MCH MCHC RDW Plt Count MPV Neutrophils % Lymphocytes % Monocytes % Eosinophils % Basophils % Retic Count PT with INR INR PTT (Actin FS) Sodium Potassium Chloride Carbon Dioxide Anion Gap BUN Creatinine Creat Clearance w eGFR POC Glucometer 138 132 Random Glucose Calcium Phosphorus Magnesium Total Bilirubin Direct Bilirubin AST ALT Alkaline Phosphatase LD Total C-Reactive Protein Total Protein Albumin Total Amylase Lipase Vitamin B12 TSH Blood Type O POSITIVE Antibody Screen Negative Direct Antiglob Test Positive H Crossmatch See Detail 12/09/17 12/09/17 12/09/17 06:28 06:35 06:35 WBC RBC Hgb Hct MCV MCH MCHC RDW Plt Count MPV Neutrophils % Lymphocytes % Monocytes % Eosinophils % Basophils % Retic Count PT with INR INR PTT (Actin FS) Sodium 139 Potassium 4.6 Chloride 109 H Carbon Dioxide 24 Anion Gap 6 L BUN 17 Creatinine 0.9 Creat Clearance w eGFR > 60 POC Glucometer 115 Random Glucose 100 Calcium 7.3 L Phosphorus Magnesium Total Bilirubin 1.1 H D Direct Bilirubin 0.3 H AST 19 ALT 14 Alkaline Phosphatase 71 LD Total C-Reactive Protein 2.1 H Total Protein 5.7 L Albumin 3.1 L Total Amylase 46 Lipase 101 Vitamin B12 TSH Blood Type Antibody Screen Direct Antiglob Test Crossmatch Active Medications Generic Name Dose Route Start Last Admin Trade Name Freq PRN Reason Stop Dose Admin Amlodipine Besylate 5 mg 12/09/17 10:00 Norvasc - PO DAILY NEENA Sodium Chloride 1,000 mls @ 40 mls/hr 12/08/17 20:00 12/08/17 21:30 Normal Saline - IV 12/09/17 19:59 40 mls/hr ASDIR NEENA Administration Insulin Aspart 1 vial 12/07/17 22:00 12/09/17 06:30 Novolog Vial Sliding Scale - SQ Not Given ACHS NEENA Protocol Pantoprazole Sodium 40 mg 12/07/17 22:00 12/08/17 22:34 Protonix Iv IVPUSH 40 mg BID NEENA Administration Sucralfate 1 gm 12/07/17 22:00 12/08/17 22:31 Carafate - PO 1 gm BID NEENA Administration ASSESSMENT/PLAN: This is a 67 year old woman with a history of HTN, type 2 DM who was sent to the ED by her PCP because of anemia, leukopenia. 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 Jaundice secondary to AIHA - Bilirubin improving 3. Leukopenia 4. Lung nodules - Chest CT today 5. HTN - Continue Norvasc 6. Type 2 DM - Continue Novolog sliding scale
[2017-12-09 09:30] LABS: BASO % 0.6 % (0-2.0); EOS % 3.1 % (0-4.5); HEMATOCRIT 22.8 % (32.4-45.2); LYMPH % 23.8 % (8-40); MCH 33.3 pg (25.7-33.7); MEAN CELL VOLUME 95.3 fl (80-96); MEAN PLT VOLUME 6.6 fl (7.5-11.1); MONO % 16.1 % (3.8-10.2); NEUT % 56.4 % (42.8-82.8); PLATELET COUNT 140 K/MM3 (134-434); RBC 2.39 M/mm3 (3.60-5.2); RDW 18.9 % (11.6-15.6)
[2017-12-09 09:32] LABS: HEP.C VIRUS AB <0.1 s/co ratio (0.0-0.9)
[2017-12-09 09:32] LABS: SERUM IRON SATURATION 14 % (15-55); TOTAL IRON BINDING CAPACITY 247 ug/dL (250-450); UIBC 213 ug/dL (118-369)
[2017-12-09 10:05] LABS: WHITE BLOOD COUNT 1.7 K/mm3 (4.0-10.0)
[2017-12-09] MEDS ORDERED: PT OWN MED DRAWER 7, Y5N ONE (10:17)
[2017-12-09] MEDS: SUCRALFATE 1 GM TABLET (FP) PO SCH ×2 (10:19→22:20)
[2017-12-09] MEDS: PANTOPRAZOLE 40 MG TABLET (FP) PO SCH (10:19)
[2017-12-09] MEDS: amLODIPine BESYLATE 5 MG TABLET (FP) PO SCH (10:19)
[2017-12-09] MEDS ORDERED: LIDOCAINE HCL 1%, 10 MG/ML (20ML VIAL) SNB ONE (15:58)
--- NOTE | 2017-12-09 16:04 | PN ---
Progress Note (short form) - Note Progress Note: pt seen and examined. Chart reviewed Family at bedside. She feels no pain. Constitutional: Yes: Well Nourished, No Distress Eyes: Yes: Conjunctiva Clear, Sclera Icterus HENT: Yes: Atraumatic, Normocephalic Neck: Yes: Supple Cardiovascular: Yes: Regular Rate and Rhythm Respiratory: Yes: Regular, CTA Bilaterally Gastrointestinal: Yes: Normal Bowel Sounds, Soft, Abdomen, Obese Extremities: Yes: WNL Edema: No Neurological: Yes: Alert, Temp Pulse Resp BP Pulse Ox 98.3 F 76 18 163/67 98 12/09/17 15:11 12/09/17 15:11 12/09/17 15:11 12/09/17 15:11 12/09/17 09:00 CBC, BMP 12/09/17 06:35 12/09/17 06:35 Current Medications Generic Name Dose Route Start Last Admin Trade Name Freq PRN Reason Stop Dose Admin Amlodipine Besylate 5 mg 12/09/17 10:00 12/09/17 10:19 Norvasc - PO 5 mg DAILY NEENA Administration Sodium Chloride 1,000 mls @ 40 mls/hr 12/08/17 20:00 12/08/17 21:30 Normal Saline - IV 12/09/17 19:59 40 mls/hr ASDIR NEENA Administration Insulin Aspart 1 vial 12/07/17 22:00 12/09/17 12:04 Novolog Vial Sliding Scale - SQ 2 units ACHS NEENA Administration Protocol Lidocaine HCl 5 ml 12/09/17 15:58 Xylocaine 1% SNB 12/09/17 15:59 ONCE ONE Pantoprazole Sodium 40 mg 12/09/17 10:00 12/09/17 10:19 Protonix - PO 40 mg DAILY NEENA Administration Sucralfate 1 gm 12/07/17 22:00 12/09/17 10:19 Carafate - PO 1 gm BID NEENA Administration CT scan -- reviewed, suspicious for colonic malignancy ? , will d.w GI. Anemia/Neutropenia: AUNDREA + hemolytic anemia Ig Negative, C3 positive, await IgM. Most of the w.u is pending cannot rule out primary marrow disorder. s/p bed side bone marrow biopsy/aspirate today. Tolerated well. ( see procedure Note) IgG negative, not warm if AIHA, usually are poorly responsive to steroids. will await most of the tests prior to tx, in the interim, need monitoring of cbc/chem /LDH/retic count. if febrile,would treat as Neutropenic sepsis. no neupogen for now Cardiomegaly: ?etiology will consult cardiology the present clinical situation updated to her niece Elieser and her sister Mary , whom the pt lives with and they are the care-takers. Elieser communicates in German.
[2017-12-09] MEDS ORDERED: LIDOCAINE HCL 1%, 10 MG/ML (20ML VIAL) ONE (16:12)
--- NOTE | 2017-12-09 17:42 | PROC ---
Bone Marrow Aspiration/Biopsy - Consent Indication: Diagnostic Risks and Benefits Explained: Yes Consent on Chart: Yes - Procedure Location: Right Iliac Crest Anesthesia: 1% Lidocaine Specimen: Obtained Position: Other (lateral decub) Patient tolerated procedure: Well with minimal pain Sterile Dressing Applied: Yes Remarks: post procedure precautions given Aspirate/core/clot obtained. due to her "mental" health condition, sister and niece were also explained about the procedure. They agreed.
[2017-12-10] MEDS: INSULIN SLIDING SCALE (NOVOLOG) 1 VIAL SQ SCH ×4 (06:21→21:37)
[2017-12-10 08:17] LABS: CHLORIDE 106 mmol/L (98-107); SODIUM 137 mmol/L (136-145)
[2017-12-10 08:24] LABS: ALBUMIN 3.6 g/dl (3.4-5.0); ALK PHOS 86 U/L (45-117); ANION GAP 9 (8-16); BILIRUBIN,DIRECT 0.3 mg/dL (0.0-0.2); BILIRUBIN,TOTAL 1.1 mg/dL (0.2-1.0); BLOOD UREA NITROGEN 11 mg/dL (7-18); CALCIUM 8.2 mg/dL (8.5-10.1); CO2 22 mmol/L (21-32); CREATININE 0.8 mg/dL (0.55-1.02); GLUCOSE,RANDOM 87 mg/dL (74-106); SGPT/ALT 17 U/L (12-78); TOT PROT 6.7 g/dl (6.4-8.2)
[2017-12-10 08:30] LABS: MEAN PLT VOLUME 6.8 fl (7.5-11.1)
[2017-12-10 08:53] LABS: LDH 336 U/L (84-246); POTASSIUM 5.5 mmol/L (3.5-5.1); SGOT/AST 31 U/L (15-37)
[2017-12-10 08:59] LABS: WHITE BLOOD COUNT 1.8 K/mm3 (4.0-10.0)
[2017-12-10] MEDS ORDERED: SODIUM POLYSTYRENE SULFONATE 15 GM/60 ML BOTTLE PO ONE (09:27)
[2017-12-10] MEDS ORDERED: PT OWN MED DRAWER 7, Y5N ONE (09:46)
[2017-12-10] MEDS: amLODIPine BESYLATE 5 MG TABLET (FP) PO SCH (10:00)
[2017-12-10] MEDS: SUCRALFATE 1 GM TABLET (FP) PO SCH ×2 (10:00→21:37)
[2017-12-10] MEDS: PANTOPRAZOLE 40 MG TABLET (FP) PO SCH (10:00)
--- NOTE | 2017-12-10 10:22 | CON.CARD ---
Consult Consult Specialty:: Cardiology Referred by:: Heme-Onc Reason for Consultation:: Cardiomegaly on Chest CT - History of Present Illness Chief Complaint: Anemia History of Present Illness: 67 year old F with pmh of HTN and DM presented from PCP's office with anemia. Patient went to her PCP's office for regular f/u visit and found to be anemia. Per sister, patient has been complaining of 2 week hx of intermittent epigastric and LUQ abdominal pain, nonradiating that worsens with food. Abd& pelvic CT shows suspicion of prox sigmoid neoplasm awaiting colonoscopy. Patient denies chest pain, dyspnea, near or true syncope, palpitations, orthopnea, PND or LE edema. - History Source History Provided By: Medical Record Limitations to Obtaining History: Language Barrier - Past Medical History Cardio/Vascular: Yes: HTN ...: No Endocrine: Yes: Diabetes Mellitus - Past Surgical History Past Surgical History: Yes: None - Alcohol/Substance Use Hx Alcohol Use: No - Smoking History Smoking history: Never smoked - Social History Usual Living Arrangement: With Significant Other (with sister) ADL: Family Assistance Home Medications - Allergies Allergies/Adverse Reactions: Allergies Allergy/AdvReac Type Severity Reaction Status Date / Time No Known Allergies Allergy Verified 12/07/17 14:57 - Home Medications Home Medications: Ambulatory Orders NK [No Known Home Medication] 12/07/17 Vital Signs: Vital Signs Temperature 98.6 F 12/10/17 06:24 Pulse Rate 68 12/10/17 06:24 Respiratory Rate 18 12/10/17 06:24 Blood Pressure 159/69 12/10/17 06:24 O2 Sat by Pulse Oximetry (%) 97 12/09/17 21:00 Constitutional: Yes: No Distress, Calm Neck: Yes: Supple Respiratory: Yes: Regular, CTA Bilaterally Gastrointestinal: Yes: Normal Bowel Sounds, Soft Cardiovascular: Yes: Regular Rate and Rhythm JVD: No Carotid Bruit: No Heart Sounds: Yes: S1, S2 Edema: No - Other Data Labs, Other Data: CBC, BMP 12/10/17 06:52 12/10/17 06:52 INR, PTT INR 0.89 (0.82-1.09) 12/08/17 12:15 Fibrinogen 363.0 mg/dL (238-498) 12/07/17 21:10 Imaging - Results Chest X-ray: Report Reviewed (NAD) Cat Scan: Report Reviewed (Prox sigmoid thickening and irregularity consider neoplasn) Problem List - Problems (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 - OTHER AUTOIMMUNE HEMOLYTIC ANEMIAS (2) Hypertension Code(s): I10 - ESSENTIAL (PRIMARY) HYPERTENSION Qualifiers: Hypertension type: essential hypertension Qualified Code(s): I10 - Essential (primary) hypertension (3) Leukopenia Code(s): D72.819 - DECREASED WHITE BLOOD CELL COUNT, UNSPECIFIED Qualifiers: Leukopenia type: neutropenia (4) Indirect hyperbilirubinemia Code(s): E80.6 - OTHER DISORDERS OF BILIRUBIN METABOLISM Assessment/Plan 1. Autoimmune hemolytic anemia post transfusion 2 units PRBCs 2. Jaundice secondary to AIHA with bilirubin improving 3. Leukopenia 5. HTN 6. Type 2 DM 7. R/o sigmoid neoplasm 8. Hyperkalemia P:1. F/u bone marrow results, neutropenic precautions 2. F/u echo results 3. Continue on Norvasc 5 qd, kayexelate as you are 4. Possible colonoscopy per GI input 5. Thank you for consultative opportunity
--- NOTE | 2017-12-10 11:29 | PN ---
Progress Note, Physician History of Present Illness: chart reviewed. Asymptomatic. Sitting in chair. Comfortable. CT findings discussed with pt's sister at bedside via Serbian-speaking hospital employee. Colonoscopy planned for Sunday. - Current Medication List Current Medications: Active Medications Amlodipine Besylate (Norvasc -) 10 mg PO DAILY [facility] Insulin Aspart (Novolog Vial Sliding Scale -) 1 vial SQ ACHS [facility] PRN Reason: Protocol Last Admin: 12/10/17 11:16 Dose: Not Given Pantoprazole Sodium (Protonix -) 40 mg PO DAILY [facility] Last Admin: 12/10/17 10:00 Dose: 40 mg Sucralfate (Carafate -) 1 gm PO BID [facility] Last Admin: 12/10/17 10:00 Dose: 1 gm - Objective Vital Signs: Vital Signs Temperature 98.6 F 12/10/17 06:24 Pulse Rate 68 12/10/17 06:24 Respiratory Rate 18 12/10/17 06:24 Blood Pressure 159/69 12/10/17 06:24 O2 Sat by Pulse Oximetry (%) 97 12/09/17 21:00 Constitutional: Yes: Well Nourished, No Distress, Calm Eyes: No: Sclera Icterus HENT: Yes: Atraumatic Neck: Yes: Supple Cardiovascular: No: Bradycardia, Tachycardia Respiratory: Yes: Regular Gastrointestinal: Yes: Soft. No: Distention, Melena, Rectal Bleeding, Tenderness, Vomiting Neurological: Yes: Alert Labs: CBC, BMP 12/10/17 06:52 12/10/17 06:52 INR, PTT INR 0.89 (0.82-1.09) 12/08/17 12:15 Fibrinogen 363.0 mg/dL (238-498) 12/07/17 21:10 Laboratory Last Values WBC 1.8 K/mm3 (4.0-10.0) L* 12/10/17 06:52 RBC 1.74 M/mm3 (3.60-5.2) L D 12/10/17 06:52 Hgb 9.8 GM/dL (10.7-15.3) L D 12/10/17 06:52 Hct 18.8 % (32.4-45.2) L D 12/10/17 06:52 MCV 107.6 fl (80-96) H D 12/10/17 06:52 MCH 56.1 pg (25.7-33.7) H 12/10/17 06:52 MCHC 52.2 g/dl (32.0-36.0) H 12/10/17 06:52 RDW 17.5 % (11.6-15.6) H 12/10/17 06:52 Plt Count 140 K/MM3 (134-434) 12/09/17 06:35 MPV 6.8 fl (7.5-11.1) L 12/10/17 06:52 Neutrophils % No Result Required. 12/10/17 06:52 Lymphocytes % No Result Required. 12/10/17 06:52 Monocytes % 16.1 % (3.8-10.2) H D 12/09/17 06:35 Eosinophils % 3.1 % (0-4.5) 12/09/17 06:35 Basophils % 0.6 % (0-2.0) 12/09/17 06:35 Platelet Estimate Adequate 12/07/17 15:47 Anisocytosis 1+ 12/07/17 15:47 Retic Count 6.80 % (0.5-1.5) H D 12/08/17 12:15 Haptoglobin 10 mg/dL (34-200) L 12/07/17 18:59 PT with INR 10.10 SEC (9.98-11.88) 12/08/17 12:15 INR 0.89 (0.82-1.09) 12/08/17 12:15 PTT (Actin FS) 26.5 SECONDS (26.9-34.4) L 12/08/17 12:15 Fibrinogen 363.0 mg/dL (238-498) 12/07/17 21:10 Sodium 137 mmol/L (136-145) 12/10/17 06:52 Potassium 5.5 mmol/L (3.5-5.1) H 12/10/17 06:52 Chloride 106 mmol/L (98-107) 12/10/17 06:52 Carbon Dioxide 22 mmol/L (21-32) 12/10/17 06:52 Anion Gap 9 (8-16) 12/10/17 06:52 BUN 11 mg/dL (7-18) 12/10/17 06:52 Creatinine 0.8 mg/dL (0.55-1.02) 12/10/17 06:52 Creat Clearance w eGFR > 60 (>60) 12/09/17 06:35 POC Glucometer 108 UNITS (80-120) 12/10/17 06:20 Random Glucose 87 mg/dL (74-106) 12/10/17 06:52 Calcium 8.2 mg/dL (8.5-10.1) L 12/10/17 06:52 Phosphorus 4.2 mg/dL (2.5-4.9) 12/08/17 12:15 Magnesium 2.8 mg/dL (1.8-2.4) H 12/08/17 12:15 Iron 34 ug/dL (27-139) 12/07/17 16:43 TIBC 247 ug/dL (250-450) L 12/07/17 16:43 Iron Saturation 14 % (15-55) L 12/07/17 16:43 Ferritin 25.638 ng/ml (6.9-282.5) 12/07/17 16:43 Total Bilirubin 1.1 mg/dL (0.2-1.0) H 12/10/17 06:52 Direct Bilirubin 0.3 mg/dL (0.0-0.2) H 12/10/17 06:52 GGT 17 U/L (5-85) 12/07/17 18:59 AST 31 U/L (15-37) 12/10/17 06:52 ALT 17 U/L (12-78) 12/10/17 06:52 Alkaline Phosphatase 86 U/L (45-117) 12/10/17 06:52 LD Total 336 U/L (84-246) H 12/10/17 06:52 C-Reactive Protein 2.1 MG/DL (0.00-0.3) H 12/09/17 06:35 Total Protein 6.7 g/dl (6.4-8.2) 12/10/17 06:52 Albumin 3.6 g/dl (3.4-5.0) 12/10/17 06:52 Total Amylase 46 U/L (25-115) 12/09/17 06:35 Lipase 101 U/L (73-393) 12/09/17 06:35 Vitamin B12 863 pg/ml (180-914) 12/08/17 12:15 TSH 0.59 uIU/ml (0.358-3.74) 12/08/17 12:15 Urine Color Yellow 12/07/17 15:47 Urine Appearance Clear 12/07/17 15:47 Urine pH 7.0 (5.0-8.0) 12/07/17 15:47 Ur Specific [place] 1.019 (1.001-1.035) 12/07/17 15:47 Urine Protein 1+ (NEGATIVE) H 12/07/17 15:47 Urine Glucose (UA) Negative (NEGATIVE) 12/07/17 15:47 Urine Ketones Negative (NEGATIVE) 12/07/17 15:47 Urine Blood Negative (NEGATIVE) 12/07/17 15:47 Urine Nitrite Negative (NEGATIVE) 12/07/17 15:47 Urine Bilirubin Negative (<2.0 mg/dL) 12/07/17 15:47 Urine Urobilinogen 4.0 e.u/dl mg/dL (0.2-1.0) H 12/07/17 15:47 Ur Leukocyte Esterase Negative (NEGATIVE) 12/07/17 15:47 Urine WBC (Auto) 1 /hpf (3-5) 12/07/17 15:47 Urine RBC (Auto) <1 /hpf (0-3) 12/07/17 15:47 Ur Epithelial Cells Rare /HPF (FEW) 12/07/17 15:47 Urine Bacteria Rare /hpf (NONE SEEN) 12/07/17 15:47 Hyaline Casts 4 /lpf 12/07/17 15:47 Urine Mucus Rare 12/07/17 15:47 Stool Occult Blood Negative (NEGATIVE) 12/07/17 15:45 Hepatitis A IgM Ab Negative (Negative) 12/07/17 18:59 Hep Bs Antigen Negative (Negative) 12/07/17 18:59 Hep B Core IgM Ab Negative (Negative) 12/07/17 18:59 Hepatitis C Antibody <0.1 s/co ratio (0.0-0.9) 12/07/17 18:59 HIV 1&2 Antibody Screen Negative 12/07/17 18:59 HIV P24 Antigen Negative 12/07/17 18:59 Blood Type O POSITIVE 12/08/17 12:15 Antibody Screen Negative 12/08/17 12:15 Direct Antiglob Test Positive (NEGATIVE) H 12/08/17 12:15 Crossmatch See Detail 12/08/17 12:15 Problem List - Problems (1) Abnormal CT of the abdomen Code(s): R93.5 - ABN FINDINGS ON DX IMAGING OF ABD REGIONS, INC RETROPERITON (2) Abdominal pain Code(s): R10.9 - UNSPECIFIED ABDOMINAL PAIN Qualifiers: Abdominal location: generalized Qualified Code(s): R10.84 - Generalized abdominal pain (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 Colonoscopy and prep discussed with pt's sister. hematology work up of hemolytic anemia
[2017-12-10 12:26] LABS: BASO % 0.8 % (0-2.0); LYMPH % 20.7 % (8-40); MONO % 10.3 % (3.8-10.2); NEUT % 64.2 % (42.8-82.8)
[2017-12-10 12:39] LABS: RBC 3.01 M/mm3 (3.60-5.2)
[2017-12-10 12:40] LABS: HEMATOCRIT 29.3 % (32.4-45.2); MEAN CELL VOLUME 97.5 fl (80-96)
[2017-12-10 12:41] LABS: MCH 33.2 pg (25.7-33.7)
[2017-12-10 12:42] LABS: PLATELET COUNT 151 K/MM3 (134-434); RDW 63.9 % (11.6-15.6)
--- NOTE | 2017-12-10 12:55 | EKG ---
Test Reason : Blood Pressure : / mmHG Vent. Rate : 078 BPM Atrial Rate : 078 BPM P-R Int : 148 ms QRS Dur : 066 ms QT Int : 374 ms P-R-T Axes : 031 047 040 degrees QTc Int : 426 ms NORMAL SINUS RHYTHM NONSPECIFIC ST ABNORMALITY ABNORMAL ECG NO PREVIOUS ECGS AVAILABLE Confirmed by KARLI PAZ MD ([id number]) on 12/10/2017 12:54:27 PM Referred By: Confirmed By:KARLI PAZ MD
[2017-12-10] MEDS: amLODIPine BESYLATE 10 MG TABLET (FP) PO SCH (13:18)
--- NOTE | 2017-12-10 14:31 | PN ---
Physical Exam: SUBJECTIVE: Patient seen and examined No acute events overnight. No complaints this morning. Denies fever, chills, chest pain, shortness of breath, or abdominal pain. OBJECTIVE: Vital Signs Period Temp Pulse Resp BP Sys/Rodrigues Pulse Ox Last 24 Hr 98.3 F-99.3 F 68-82 18-20 134-175/62-78 97-100 GENERAL: Awake, alert. +Jaundice HEAD: Normal with no signs of trauma. EYES: Pupils equal, round and reactive to light, extraocular movements intact, + scleral icterus, conjunctiva clear. No lid lag. EARS, NOSE, THROAT: Oropharynx clear without exudates. +sublingual jaundice NECK: Normal range of motion, supple without lymphadenopathy, JVD, or masses. LUNGS: Breath sounds equal, clear to auscultation bilaterally. No wheezes, and no crackles. No accessory muscle use. HEART: Regular rate and rhythm, normal S1 and S2 without murmur, rub or gallop. ABDOMEN: Soft, non tender, not distended, normoactive bowel sounds, no guarding , no rebound, no masses. No hepatomegaly or splenomegaly. UPPER EXTREMITIES: 2+ pulses, warm, well-perfused. No cyanosis. No clubbing. No peripheral edema. LOWER EXTREMITIES: 2+ pulses, warm, well-perfused. No calf tenderness. No peripheral edema. NEUROLOGICAL: Cranial nerves II-XII intact SKIN: Warm, dry, normal turgor, no rashes or lesions noted, normal capillary refill. +Jaundice Laboratory Results - last 24 hr 12/07/17 12/09/17 12/09/17 15:47 06:35 16:58 WBC RBC Hgb Hct MCV MCH MCHC RDW Plt Count MPV Neutrophils % Neutrophils % (Manual) Lymphocytes % Monocytes % Eosinophils % Basophils % Sodium Potassium Chloride Carbon Dioxide Anion Gap BUN Creatinine POC Glucometer 122 Random Glucose Calcium Total Bilirubin Direct Bilirubin AST ALT Alkaline Phosphatase LD Total 278 H Total Protein Albumin Blood Type O POSITIVE Antibody Screen Negative Crossmatch See Detail 12/09/17 12/10/17 12/10/17 22:12 06:20 06:52 WBC 1.8 L* RBC 3.01 L D Hgb 10.0 L D Hct 29.3 L D MCV 97.5 H MCH 33.2 MCHC 34.0 RDW 63.9 H Plt Count 151 MPV 6.8 L Neutrophils % 64.2 Neutrophils % (Manual) No Result Required. Lymphocytes % 20.7 Monocytes % 10.3 H Eosinophils % 4.0 Basophils % 0.8 Sodium Potassium Chloride Carbon Dioxide Anion Gap BUN Creatinine POC Glucometer 132 108 Random Glucose Calcium Total Bilirubin Direct Bilirubin AST ALT Alkaline Phosphatase LD Total Total Protein Albumin Blood Type Antibody Screen Crossmatch 12/10/17 12/10/17 06:52 11:01 WBC RBC Hgb Hct MCV MCH MCHC RDW Plt Count MPV Neutrophils % Neutrophils % (Manual) Lymphocytes % Monocytes % Eosinophils % Basophils % Sodium 137 Potassium 5.5 H Chloride 106 Carbon Dioxide 22 Anion Gap 9 BUN 11 Creatinine 0.8 POC Glucometer 126 Random Glucose 87 Calcium 8.2 L Total Bilirubin 1.1 H Direct Bilirubin 0.3 H AST 31 ALT 17 Alkaline Phosphatase 86 LD Total 336 H Total Protein 6.7 Albumin 3.6 Blood Type Antibody Screen Crossmatch Active Medications Generic Name Dose Route Start Last Admin Trade Name Freq PRN Reason Stop Dose Admin Amlodipine Besylate 10 mg 12/10/17 12:00 12/10/17 13:18 Norvasc - PO 10 mg DAILY NEENA Administration Bisacodyl 20 mg 12/11/17 12:00 Dulcolax - PO 12/11/17 12:01 ONCE ONE Insulin Aspart 1 vial 12/07/17 22:00 12/10/17 11:16 Novolog Vial Sliding Scale - SQ Not Given [facility] Protocol Pantoprazole Sodium 40 mg 12/09/17 10:00 12/10/17 10:00 Protonix - PO 40 mg DAILY NEENA Administration Polyethylene Glycol/Electrolytes 4,000 ml 12/11/17 17:00 Golytely Solution - PO 12/11/17 17:01 ONCE ONE Sucralfate 1 gm 12/07/17 22:00 12/10/17 10:00 Carafate - PO 1 gm BID NEENA Administration ASSESSMENT/PLAN: 67 year old F with pmh of HTN and DM presented from PCP's office with anemia and leukopenia #Anemia & Leukopenia with jaundice, likely autoimmune hemolytic anemia -AUNDREA+ -pending bone marrow biopsy results -labs pending -IgM pending -Colonoscopy next week -Neutropenic precautions -Protonix 40 daily -carafate 1g bid -GI Consult -Heme Consult #HTN -norvasc 10 po daily -monitor bp #DM -Bgm achs -iss achs #FEN/GI. PPx -No IVF -wnl -npo after midnight -scd's -protonix Visit type - Emergency Visit Emergency Visit: Yes ED Registration Date: 12/07/17 Care time: The patient presented to the Emergency Department on the above date and was hospitalized for further evaluation of their emergent condition. - New Patient This patient is new to me today: No - Critical Care Critical Care patient: No
[2017-12-10] MEDS ORDERED: guaiFENesin/D-METHORPHAN HB 10 ML UNIT-DOSE CUPS PO PRN (17:24)
--- NOTE | 2017-12-10 18:34 | PN ---
Teaching Attending Note Name of Resident: Jacob Paul ATTENDING PHYSICIAN STATEMENT I saw and evaluated the patient. I reviewed the resident's note and discussed the case with the resident. I agree with the resident's findings and plan as documented. SUBJECTIVE: OBJECTIVE: Vital Signs Period Temp Pulse Resp BP Sys/Rodrigues Pulse Ox Last 24 Hr 98.6 F-99.4 F 68-84 18-20 113-175/53-74 97-100 Laboratory Results - last 24 hr 12/07/17 12/09/17 12/09/17 15:47 06:35 16:58 WBC RBC Hgb Hct MCV MCH MCHC RDW Plt Count MPV Neutrophils % Neutrophils % (Manual) Lymphocytes % Monocytes % Eosinophils % Basophils % Sodium Potassium Chloride Carbon Dioxide Anion Gap BUN Creatinine POC Glucometer 122 Random Glucose Calcium Total Bilirubin Direct Bilirubin AST ALT Alkaline Phosphatase LD Total 278 H Total Protein Albumin Blood Type O POSITIVE Antibody Screen Negative Crossmatch See Detail 12/09/17 12/10/17 12/10/17 22:12 06:20 06:52 WBC 1.8 L* RBC 3.01 L D Hgb 10.0 L D Hct 29.3 L D MCV 97.5 H MCH 33.2 MCHC 34.0 RDW 63.9 H Plt Count 151 MPV 6.8 L Neutrophils % 64.2 Neutrophils % (Manual) No Result Required. Lymphocytes % 20.7 Monocytes % 10.3 H Eosinophils % 4.0 Basophils % 0.8 Sodium Potassium Chloride Carbon Dioxide Anion Gap BUN Creatinine POC Glucometer 132 108 Random Glucose Calcium Total Bilirubin Direct Bilirubin AST ALT Alkaline Phosphatase LD Total Total Protein Albumin Blood Type Antibody Screen Crossmatch 12/10/17 12/10/17 12/10/17 06:52 11:01 16:32 WBC RBC Hgb Hct MCV MCH MCHC RDW Plt Count MPV Neutrophils % Neutrophils % (Manual) Lymphocytes % Monocytes % Eosinophils % Basophils % Sodium 137 Potassium 5.5 H Chloride 106 Carbon Dioxide 22 Anion Gap 9 BUN 11 Creatinine 0.8 POC Glucometer 126 212 Random Glucose 87 Calcium 8.2 L Total Bilirubin 1.1 H Direct Bilirubin 0.3 H AST 31 ALT 17 Alkaline Phosphatase 86 LD Total 336 H Total Protein 6.7 Albumin 3.6 Blood Type Antibody Screen Crossmatch Current Medications Generic Name Dose Route Start Last Admin Trade Name Freq PRN Reason Stop Dose Admin Amlodipine Besylate 10 mg 12/10/17 12:00 12/10/17 13:18 Norvasc - PO 10 mg DAILY NEENA Administration Bisacodyl 20 mg 12/11/17 12:00 Dulcolax - PO 12/11/17 12:01 ONCE ONE Guaifenesin 10 ml 12/10/17 17:40 Guaifenesin Dm Syrup PO Q8H PRN COUGH Insulin Aspart 1 vial 12/07/17 22:00 12/10/17 16:33 Novolog Vial Sliding Scale - SQ 4 units ACHS NEENA Administration Protocol Pantoprazole Sodium 40 mg 12/09/17 10:00 12/10/17 10:00 Protonix - PO 40 mg DAILY NEENA Administration Polyethylene Glycol/Electrolytes 4,000 ml 12/11/17 17:00 Golytely Solution - PO 12/11/17 17:01 ONCE ONE Sucralfate 1 gm 12/07/17 22:00 12/10/17 10:00 Carafate - PO 1 gm BID NEENA Administration ASSESSMENT AND PLAN:
[2017-12-10] MEDS: guaiFENesin/D-METHORPHAN HB 5 ML UNIT-DOSE CUPS PO PRN (18:42)
[2017-12-10] MEDS ORDERED: INSULIN (NOVOLOG) ASPART 100 UNITS/ML 10ML VIAL ONE (21:02)
--- NOTE | 2017-12-10 22:35 | PN ---
Progress Note (short form) - Note Progress Note: Patient seen and examined no specific complaints Vitals/meds/labs reviewed autoimmune hemolytic anemia . stable Hgb, mildly elevated LDH leukopenia await bmbx
[2017-12-11 00:10] LABS: COLD AGGLUTININS Negative (Neg <1:32)
[2017-12-11 06:06] LABS: IGA IMMUNOGLOBULIN 142 mg/dL (87-352); IGM IMMUNOGLOBULIN 71 mg/dL (26-217)
[2017-12-11] MEDS: INSULIN SLIDING SCALE (NOVOLOG) 1 VIAL SQ SCH ×4 (06:06→21:09)
[2017-12-11] MEDS ORDERED: ACETAMINOPHEN 325 MG TABLET (FP) PO ONE (06:39)
[2017-12-11] MEDS ORDERED: CEFEPIME 2 GM in DEXTROSE 5%-WATER 100 ML IVPB ONE (07:15)
[2017-12-11] MEDS ORDERED: DEXTROSE 5%-WATER 100 ML IVPB ONE (07:19)
[2017-12-11] MEDS ORDERED: CEFEPIME HCL 2 GM VIAL (RESTRICTED TO ID) ONE (07:19)
--- NOTE | 2017-12-11 07:19 | PN ---
Physical Exam: SUBJECTIVE: Patient seen and examined Overnight, patient spiked a fever and became tachycardic. Cultures were taken and cxr was ordered. This morning, patient has no complaints. States she had a cough overnight but has now resolved. OBJECTIVE: Vital Signs Period Temp Pulse Resp BP Sys/Rodrigues Pulse Ox Last 24 Hr 98 F-102.9 F 66-119 18-20 113-175/53-93 97-100 GENERAL: Awake, alert. +Jaundice HEAD: Normal with no signs of trauma. EYES: Pupils equal, round and reactive to light, extraocular movements intact, + scleral icterus, conjunctiva clear. No lid lag. EARS, NOSE, THROAT: Oropharynx clear without exudates. +sublingual jaundice NECK: Normal range of motion, supple without lymphadenopathy, JVD, or masses. LUNGS: Breath sounds equal, clear to auscultation bilaterally. No wheezes, and no crackles. No accessory muscle use. HEART: Regular rate and rhythm, normal S1 and S2 without murmur, rub or gallop. ABDOMEN: Soft, non tender, not distended, normoactive bowel sounds, no guarding , no rebound, no masses. No hepatomegaly or splenomegaly. UPPER EXTREMITIES: 2+ pulses, warm, well-perfused. No cyanosis. No clubbing. No peripheral edema. LOWER EXTREMITIES: 2+ pulses, warm, well-perfused. No calf tenderness. No peripheral edema. NEUROLOGICAL: Cranial nerves II-XII intact SKIN: Warm, dry, normal turgor, no rashes or lesions noted, normal capillary refill. +Jaundice Laboratory Results - last 24 hr 12/07/17 12/07/17 12/08/17 15:47 21:10 12:15 WBC RBC Hgb Hct 14.0 L* MCV MCH MCHC RDW Plt Count MPV Neutrophils % Neutrophils % (Manual) Lymphocytes % Monocytes % Eosinophils % Basophils % Sodium Potassium Chloride Carbon Dioxide Anion Gap BUN Creatinine POC Glucometer Random Glucose Calcium Total Bilirubin Direct Bilirubin AST ALT Alkaline Phosphatase LD Total Total Protein Albumin Beta Globulins 0.9 Folate 2619 Folate Hemolysate 366.6 Stool Occult Blood IgG IgA IgM DEBORAH & SPEP Interp Total Protein (DEBORAH) 6.3 Albumin (DEBORAH) 3.4 Albumin/Globulin (DEBORAH) 1.2 Sycvy-0-Oxjrjawxv DEBORAH 0.3 Fpgbj-9-Pysyldxvw DEBORAH 0.6 Gamma Globulins (DEBORAH) 1.2 DEBORAH M-Hunter Not observed DEBORAH Comments IEP IgG 976 IEP IgA 155 IEP IgM 75 Cold Agglutinins Negative ANDREA Screen Negative Blood Type O POSITIVE Antibody Screen Negative Crossmatch See Detail 12/09/17 12/10/17 12/10/17 06:35 06:52 06:52 WBC 1.8 L* RBC 3.01 L D Hgb 10.0 L D Hct 29.3 L D MCV 97.5 H MCH 33.2 MCHC 34.0 RDW 63.9 H Plt Count 151 MPV 6.8 L Neutrophils % 64.2 Neutrophils % (Manual) No Result Required. Lymphocytes % 20.7 Monocytes % 10.3 H Eosinophils % 4.0 Basophils % 0.8 Sodium 137 Potassium 5.5 H Chloride 106 Carbon Dioxide 22 Anion Gap 9 BUN 11 Creatinine 0.8 POC Glucometer Random Glucose 87 Calcium 8.2 L Total Bilirubin 1.1 H Direct Bilirubin 0.3 H AST 31 ALT 17 Alkaline Phosphatase 86 LD Total 336 H Total Protein 6.7 Albumin 3.6 Beta Globulins Folate Folate Hemolysate Stool Occult Blood IgG 872 IgA 142 IgM 71 DEBORAH & SPEP Interp Total Protein (DEBORAH) Albumin (DEBORAH) Albumin/Globulin (DEBORAH) Qkcyp-7-Eixxuwehw DEBORAH Pjvbn-8-Ewxbddxkl DEBORAH Gamma Globulins (DEBORAH) DEBORAH M-Hunter DEBORAH Comments IEP IgG IEP IgA IEP IgM Cold Agglutinins ANDREA Screen Blood Type Antibody Screen Crossmatch 12/10/17 12/10/17 12/10/17 10:00 11:01 16:32 WBC RBC Hgb Hct MCV MCH MCHC RDW Plt Count MPV Neutrophils % Neutrophils % (Manual) Lymphocytes % Monocytes % Eosinophils % Basophils % Sodium Potassium Chloride Carbon Dioxide Anion Gap BUN Creatinine POC Glucometer 126 212 Random Glucose Calcium Total Bilirubin Direct Bilirubin AST ALT Alkaline Phosphatase LD Total Total Protein Albumin Beta Globulins Folate Folate Hemolysate Stool Occult Blood Negative IgG IgA IgM DEBORAH & SPEP Interp Total Protein (DEBORAH) Albumin (DEBORAH) Albumin/Globulin (DEBORAH) Ozsne-2-Ziyvhgcdh DEBORAH Lbuhl-2-Zhqomnnme DEBORAH Gamma Globulins (DEBORAH) DEBORAH M-Hunter DEBORAH Comments IEP IgG IEP IgA IEP IgM Cold Agglutinins ANDREA Screen Blood Type Antibody Screen Crossmatch 12/10/17 12/11/17 21:36 06:05 WBC RBC Hgb Hct MCV MCH MCHC RDW Plt Count MPV Neutrophils % Neutrophils % (Manual) Lymphocytes % Monocytes % Eosinophils % Basophils % Sodium Potassium Chloride Carbon Dioxide Anion Gap BUN Creatinine POC Glucometer 109 136 Random Glucose Calcium Total Bilirubin Direct Bilirubin AST ALT Alkaline Phosphatase LD Total Total Protein Albumin Beta Globulins Folate Folate Hemolysate Stool Occult Blood IgG IgA IgM DEBORAH & SPEP Interp Total Protein (DEBORAH) Albumin (DEBORAH) Albumin/Globulin (DEBORAH) Qirpy-3-Wffweqbil DEBORAH Uwcpz-5-Tmsqqfhbs DEBORAH Gamma Globulins (DEBORAH) DEBORAH M-Hunter DEBORAH Comments IEP IgG IEP IgA IEP IgM Cold Agglutinins ANDREA Screen Blood Type Antibody Screen Crossmatch Active Medications Generic Name Dose Route Start Last Admin Trade Name Freq PRN Reason Stop Dose Admin Amlodipine Besylate 10 mg 12/10/17 12:00 12/10/17 13:18 Norvasc - PO 10 mg DAILY NEENA Administration Bisacodyl 20 mg 12/11/17 12:00 Dulcolax - PO 12/11/17 12:01 ONCE ONE Guaifenesin 10 ml 12/10/17 17:40 12/10/17 18:42 Guaifenesin Dm Syrup PO 10 ml Q8H PRN Administration COUGH Cefepime HCl 2 gm/ Dextrose 100 mls @ 200 mls/hr 12/11/17 07:15 IVPB 12/11/17 07:44 ONCE ONE Insulin Aspart 1 vial 12/07/17 22:00 12/11/17 06:06 Novolog Vial Sliding Scale - SQ Not Given ACHS NEENA Protocol Pantoprazole Sodium 40 mg 12/09/17 10:00 12/10/17 10:00 Protonix - PO 40 mg DAILY NEENA Administration Polyethylene Glycol/Electrolytes 4,000 ml 12/11/17 17:00 Golytely Solution - PO 12/11/17 17:01 ONCE ONE Sucralfate 1 gm 12/07/17 22:00 12/10/17 21:37 Carafate - PO 1 gm BID NEENA Administration ASSESSMENT/PLAN: 67 year old F with pmh of HTN and DM presented from PCP's office with anemia and leukopenia #Fever and tachycardia -Cultures drawn -Cefepime given -cxr ordered -TB/Viral tests ordered -ID consulted -Tylenol for fever #Anemia & Leukopenia with jaundice, likely autoimmune hemolytic anemia -AUNDREA+ -pending bone marrow biopsy results -Workup mostly negative so far -CT chest/abd/pelvis concerning -Colonoscopy on hold 09/28 to fever/tachycardia -Neutropenic precautions -Protonix 40 daily -carafate 1g bid -GI Consult -Heme Consult #Cardiomegaly -Echocardiogram pending -Cardiology consulted #HTN -norvasc 10 po daily -monitor bp #DM -Bgm achs -iss achs #FEN/GI. PPx -No IVF -wnl -Clear liquid -scd's -protonix Visit type - Emergency Visit Emergency Visit: Yes ED Registration Date: 12/07/17 Care time: The patient presented to the Emergency Department on the above date and was hospitalized for further evaluation of their emergent condition. - New Patient This patient is new to me today: No - Critical Care Critical Care patient: No
[2017-12-11] MEDS ORDERED: ACETAMINOPHEN 325 MG TABLET (FP) PO PRN (08:10)
[2017-12-11 08:24] LABS: ALBUMIN 3.8 g/dl (3.4-5.0); ANION GAP 9 (8-16); BASO % 0.5 % (0-2.0); BLOOD UREA NITROGEN 15 mg/dL (7-18); CHLORIDE 104 mmol/L (98-107); CO2 23 mmol/L (21-32); EOS % 1.8 % (0-4.5); HEMATOCRIT 27.3 % (32.4-45.2); HEMOGLOBIN 9.4 GM/dL (10.7-15.3); LYMPH % 13.8 % (8-40); MCH 33.4 pg (25.7-33.7); MCHC 34.6 g/dl (32.0-36.0); MEAN CELL VOLUME 96.4 fl (80-96); MEAN PLT VOLUME 6.8 fl (7.5-11.1); NEUT % 77.9 % (42.8-82.8); PLATELET COUNT 142 K/MM3 (134-434); POTASSIUM 4.9 mmol/L (3.5-5.1); RBC 2.83 M/mm3 (3.60-5.2); RDW 17.8 % (11.6-15.6); SODIUM 136 mmol/L (136-145); WHITE BLOOD COUNT 3.9 K/mm3 (4.0-10.0)
[2017-12-11 08:30] LABS: ALK PHOS 87 U/L (45-117); BILIRUBIN,DIRECT 0.3 mg/dL (0.0-0.2); BILIRUBIN,TOTAL 1.4 mg/dL (0.2-1.0); CREATININE 0.8 mg/dL (0.55-1.02); GLUCOSE,RANDOM 107 mg/dL (74-106); SGOT/AST 22 U/L (15-37); SGPT/ALT 15 U/L (12-78); TOT PROT 6.9 g/dl (6.4-8.2)
[2017-12-11] MEDS: amLODIPine BESYLATE 10 MG TABLET (FP) PO SCH (09:02)
[2017-12-11] MEDS: PANTOPRAZOLE 40 MG TABLET (FP) PO SCH (09:02)
[2017-12-11] MEDS: SUCRALFATE 1 GM TABLET (FP) PO SCH ×2 (09:02→21:11)
--- NOTE | 2017-12-11 10:50 | PN ---
Progress Note, Physician Chief Complaint: Events noted Febrile 102.9 History of Present Illness: patient was seen and examined. Awake and alert. Chart was reviewed Denies chest pain, SOB or palpitations Currently febrile and complains of cough - Current Medication List Current Medications: Active Medications Acetaminophen (Tylenol -) 650 mg PO Q4H PRN PRN Reason: FEVER Amlodipine Besylate (Norvasc -) 10 mg PO DAILY [facility] Last Admin: 12/11/17 09:02 Dose: 10 mg Bisacodyl (Dulcolax -) 20 mg PO ONCE ONE Stop: 12/11/17 12:01 Guaifenesin (Guaifenesin Dm Syrup) 10 ml PO Q8H PRN PRN Reason: COUGH Last Admin: 12/10/17 18:42 Dose: 10 ml Insulin Aspart (Novolog Vial Sliding Scale -) 1 vial SQ ACHS [facility] PRN Reason: Protocol Last Admin: 12/11/17 06:06 Dose: Not Given Pantoprazole Sodium (Protonix -) 40 mg PO DAILY [facility] Last Admin: 12/11/17 09:02 Dose: 40 mg Polyethylene Glycol/Electrolytes (Golytely Solution -) 4,000 ml PO ONCE ONE Stop: 12/11/17 17:01 Sucralfate (Carafate -) 1 gm PO BID [facility] Last Admin: 12/11/17 09:02 Dose: 1 gm - Objective Vital Signs: Vital Signs Temperature 102.9 F H 12/11/17 09:00 Pulse Rate 100 H 12/11/17 09:00 Respiratory Rate 20 12/11/17 09:00 Blood Pressure 124/56 12/11/17 09:00 O2 Sat by Pulse Oximetry (%) 95 12/11/17 09:00 HENT: Yes: Atraumatic Neck: Yes: Supple Cardiovascular: Yes: Regular Rate and Rhythm, S1, S2 Respiratory: Yes: Cough, Diminished Gastrointestinal: Yes: Normal Bowel Sounds, Soft. No: Tenderness Edema: No Labs: CBC, BMP 12/11/17 06:00 12/11/17 06:00 INR, PTT INR 0.89 (0.82-1.09) 12/08/17 12:15 Fibrinogen 363.0 mg/dL (238-498) 12/07/17 21:10 Problem List - Problems (1) Abnormal CT of the abdomen Code(s): R93.5 - ABN FINDINGS ON DX IMAGING OF ABD REGIONS, INC RETROPERITON (2) Autoimmune hemolytic anemia Code(s): D59.1 - OTHER AUTOIMMUNE HEMOLYTIC ANEMIAS (3) Hypertension Code(s): I10 - ESSENTIAL (PRIMARY) HYPERTENSION Qualifiers: Hypertension type: essential hypertension Qualified Code(s): I10 - Essential (primary) hypertension (4) Leukopenia Code(s): D72.819 - DECREASED WHITE BLOOD CELL COUNT, UNSPECIFIED Qualifiers: Leukopenia type: neutropenia Assessment/Plan 1. Autoimmune hemolytic anemia post transfusion PRBC 2. Jaundice secondary to AIHA 3. Neutropenia 4. HTN 5. Type 2 DM 6. Rule out sigmoid neoplasm 7. Hyperkalemia PLAN: 1. Follow up bone marrow biopsy results and neutropenic precautions 2. Transthoracic echocardiography today to assess LV/RV and valvular function 3. Continue on Norvasc 4. Await colonoscopy as per GI. Further plans are to follow Philip Fraser MD
--- NOTE | 2017-12-11 11:25 | PN ---
Progress Note (short form) - Note Progress Note: pt seen and examined. Chart reviewed Family at bedside. She feels no pain. Now febrile Constitutional: Yes: Well Nourished, No Distress Eyes: Yes: Conjunctiva Clear, Sclera Icterus HENT: Yes: Atraumatic, Normocephalic Neck: Yes: Supple Cardiovascular: Yes: Regular Rate and Rhythm Respiratory: Yes: Regular, CTA Bilaterally Gastrointestinal: Yes: Normal Bowel Sounds, Soft, Abdomen, Obese Extremities: Yes: WNL Edema: No Neurological: Yes: Alert, Last Vital Signs Temp Pulse Resp BP Pulse Ox 102.9 F H 100 H 20 124/56 95 12/11/17 09:00 12/11/17 09:00 12/11/17 09:00 12/11/17 09:00 12/11/17 09:00 CBC, BMP 12/11/17 06:00 12/11/17 06:00 Current Medications Generic Name Dose Route Start Last Admin Trade Name Freq PRN Reason Stop Dose Admin Acetaminophen 650 mg 12/11/17 08:10 Tylenol - PO Q4H PRN FEVER Amlodipine Besylate 10 mg 12/10/17 12:00 12/11/17 09:02 Norvasc - PO 10 mg DAILY NEENA Administration Bisacodyl 20 mg 12/11/17 12:00 Dulcolax - PO 12/11/17 12:01 ONCE ONE Guaifenesin 10 ml 12/10/17 17:40 12/10/17 18:42 Guaifenesin Dm Syrup PO 10 ml Q8H PRN Administration COUGH Insulin Aspart 1 vial 12/07/17 22:00 12/11/17 06:06 Novolog Vial Sliding Scale - SQ Not Given ACHS NEENA Protocol Pantoprazole Sodium 40 mg 12/09/17 10:00 12/11/17 09:02 Protonix - PO 40 mg DAILY NEENA Administration Polyethylene Glycol/Electrolytes 4,000 ml 12/11/17 17:00 Golytely Solution - PO 12/11/17 17:01 ONCE ONE Sucralfate 1 gm 12/07/17 22:00 12/11/17 09:02 Carafate - PO 1 gm BID NEENA Administration Fever w/u: As per ID Rx per ID BC positivity noted: add vanc to cefepime 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 IgG -ve, C3+ No steroids f.u on Bone marrow results. CT scan findings: Colonoscopy when able to
[2017-12-11] MEDS ORDERED: INSULIN (NOVOLOG) ASPART 100 UNITS/ML 10ML VIAL ONE ×2 (11:27→20:50)
--- NOTE | 2017-12-11 11:33 | CONSULT ---
Consultation: REQUESTING PROVIDER: CONSULT REQUEST: We have been asked to medically evaluate this patient for new fevers. HISTORY OF PRESENT ILLNESS: History taken from patient and from patient's niece and sister. Niece speaks Marshallese and states her aunt is "mentally challenged". Pt is a 67 y/o F of [place] origin (moved to [place] in 1991) and PMH HTN, DM who presented to the hospital on 12/07/17 with complaint of abdominal pain. During her hospital stay she was found to have GB stones and [place] positive heolytic anemia for which she has received 2 PRBCs. Pt complains of 1 week of dry cough. No other complaints. Denies bowle/bladder difficulty, blood in urine or stools, nausea, vomiting, diarrhea. Pt Moved to [place] from [place] in 1991. She recently travelled to [place] in July. She has never been employed. Denies smoking/drinking/drugs. REVIEW OF SYSTEMS: CONSTITUTIONAL: fever, loss of appetite Absent: , chills, diaphoresis, generalized weakness, malaise, weight change HEENT: Absent: rhinorrhea, nasal congestion, throat pain, throat swelling, difficulty swallowing, mouth swelling, ear pain, eye pain, visual changes CARDIOVASCULAR: Absent: chest pain, syncope, palpitations, irregular heart rate, lightheadedness , peripheral edema RESPIRATORY: Absent: cough, shortness of breath, dyspnea with exertion, orthopnea, wheezing, stridor, hemoptysis GASTROINTESTINAL:abdominal pain Absent: , abdominal distension, nausea, vomiting, diarrhea, constipation, melena , hematochezia GENITOURINARY: Absent: dysuria, frequency, urgency, hesitancy, hematuria, flank pain, genital pain MUSCULOSKELETAL: Absent: myalgia, arthralgia, joint swelling, back pain, neck pain SKIN: Absent: rash, itching, pallor HEMATOLOGIC/IMMUNOLOGIC: Absent: easy bleeding, easy bruising, lymphadenopathy, frequent infections ENDOCRINE: Absent: unexplained weight gain, unexplained weight loss, heat intolerance, cold intolerance NEUROLOGIC: Absent: headache, focal weakness or paresthesias, dizziness, unsteady gait, seizure, mental status changes, bladder or bowel incontinence PSYCHIATRIC: Absent: anxiety, depression, suicidal or homicidal ideation, hallucinations. PHYSICAL EXAMINATION Vital Signs - 24 hr 12/10/17 12/10/17 12/10/17 13:59 17:22 21:00 Temperature 99.4 F 98.7 F 99.2 F Pulse Rate 84 82 83 Respiratory 20 18 18 Rate Blood Pressure 113/53 142/59 117/57 O2 Sat by Pulse 97 Oximetry (%) 12/11/17 12/11/17 12/11/17 02:08 06:00 09:00 Temperature 98 F 102.9 F H 102.9 F H Pulse Rate 66 119 H 100 H Respiratory 18 20 20 Rate Blood Pressure 124/60 114/93 124/56 O2 Sat by Pulse 95 Oximetry (%) GENERAL: Awake, alert, and fully oriented, in no acute distress. HEAD: Normal with no signs of trauma. EYES: extraocular movements intact, sclera anicteric, conjunctiva clear. No lid lag. EARS, NOSE, THROAT: oropharynx clear without exudates. Moist mucous membranes. NECK: Normal range of motion, supple without lymphadenopathy, JVD, or masses. LUNGS: Breath sounds equal, clear to auscultation bilaterally. No wheezes, and no crackles. No accessory muscle use. HEART: Regular rate and rhythm, normal S1 and S2 without murmur, rub or gallop. ABDOMEN: Soft, nontender, not distended, normoactive bowel sounds, no guarding, no rebound, no masses. No hepatomegaly or splenomegaly. MUSCULOSKELETAL: Normal range of motion at all joints. No bony deformities or tenderness. No CVA tenderness. UPPER EXTREMITIES: 2+ pulses, warm, well-perfused. No cyanosis. No clubbing. Cap refill <2 seconds. No peripheral edema. LOWER EXTREMITIES: 2+ pulses, warm, well-perfused. No calf tenderness. No peripheral edema. NEUROLOGICAL: Normal speech. Normal gait. PSYCHIATRIC: Cooperative. Good eye contact. Appropriate mood and affect. SKIN: Warm, dry, normal turgor, no rashes or lesions noted. Laboratory Results - last 24 hr 12/07/17 12/07/17 12/08/17 15:47 21:10 12:15 WBC RBC Hgb Hct 14.0 L* MCV MCH MCHC RDW Plt Count MPV Neutrophils % Neutrophils % (Manual) Lymphocytes % Monocytes % Eosinophils % Basophils % Sodium Potassium Chloride Carbon Dioxide Anion Gap BUN Creatinine Creat Clearance w eGFR POC Glucometer Random Glucose Calcium Total Bilirubin Direct Bilirubin AST ALT Alkaline Phosphatase Total Protein Albumin Beta Globulins 0.9 Folate 2619 Folate Hemolysate 366.6 Stool Occult Blood IgG IgA IgM DEBORAH & SPEP Interp Total Protein (DEBORAH) 6.3 Albumin (DEBORAH) 3.4 Albumin/Globulin (DEBORAH) 1.2 Awbol-1-Ziyugonxm DEBORAH 0.3 Ebixb-1-Gjsyanqyh DEBORAH 0.6 Gamma Globulins (DEBORAH) 1.2 DEBORAH M-Hunter Not observed DEBORAH Comments IEP IgG 976 IEP IgA 155 IEP IgM 75 Cold Agglutinins Negative ANDREA Screen Negative Blood Type O POSITIVE Antibody Screen Negative Crossmatch See Detail 12/09/17 12/10/17 12/10/17 06:35 06:52 10:00 WBC RBC 3.01 L D Hgb 10.0 L D Hct 29.3 L D MCV 97.5 H MCH 33.2 MCHC 34.0 RDW 63.9 H Plt Count 151 MPV Neutrophils % 64.2 Neutrophils % (Manual) No Result Required. Lymphocytes % 20.7 Monocytes % 10.3 H Eosinophils % 4.0 Basophils % 0.8 Sodium Potassium Chloride Carbon Dioxide Anion Gap BUN Creatinine Creat Clearance w eGFR POC Glucometer Random Glucose Calcium Total Bilirubin Direct Bilirubin AST ALT Alkaline Phosphatase Total Protein Albumin Beta Globulins Folate Folate Hemolysate Stool Occult Blood Negative IgG 872 IgA 142 IgM 71 DEBORAH & SPEP Interp Total Protein (DEBORAH) Albumin (DEBORAH) Albumin/Globulin (DEBORAH) Jxzjj-7-Cquifsuft DEBORAH Eqexq-4-Vvfdjcxop DEBORAH Gamma Globulins (DEBORAH) DEBORAH M-Hunter DEBORAH Comments IEP IgG IEP IgA IEP IgM Cold Agglutinins ANDREA Screen Blood Type Antibody Screen Crossmatch 12/10/17 12/10/17 12/10/17 11:01 16:32 21:36 WBC RBC Hgb Hct MCV MCH MCHC RDW Plt Count MPV Neutrophils % Neutrophils % (Manual) Lymphocytes % Monocytes % Eosinophils % Basophils % Sodium Potassium Chloride Carbon Dioxide Anion Gap BUN Creatinine Creat Clearance w eGFR POC Glucometer 126 212 109 Random Glucose Calcium Total Bilirubin Direct Bilirubin AST ALT Alkaline Phosphatase Total Protein Albumin Beta Globulins Folate Folate Hemolysate Stool Occult Blood IgG IgA IgM DEBORAH & SPEP Interp Total Protein (DEBORAH) Albumin (DEBORAH) Albumin/Globulin (DEBORAH) Czvjy-4-Lsnmgzyxh DEBORAH Irufs-3-Nxpqjfszh DEBORAH Gamma Globulins (DEBORAH) DEBORAH M-Hunter DEBORAH Comments IEP IgG IEP IgA IEP IgM Cold Agglutinins ANDREA Screen Blood Type Antibody Screen Crossmatch 12/11/17 12/11/17 12/11/17 06:00 06:00 06:05 WBC 3.9 L D RBC 2.83 L Hgb 9.4 L Hct 27.3 L MCV 96.4 H MCH 33.4 MCHC 34.6 RDW 17.8 H D Plt Count 142 MPV 6.8 L Neutrophils % 77.9 D Neutrophils % (Manual) Lymphocytes % 13.8 D Monocytes % 6.0 Eosinophils % 1.8 Basophils % 0.5 Sodium 136 Potassium 4.9 Chloride 104 Carbon Dioxide 23 Anion Gap 9 BUN 15 Creatinine 0.8 Creat Clearance w eGFR > 60 POC Glucometer 136 Random Glucose 107 H Calcium 8.0 L Total Bilirubin 1.4 H D Direct Bilirubin 0.3 H AST 22 ALT 15 Alkaline Phosphatase 87 Total Protein 6.9 Albumin 3.8 Beta Globulins Folate Folate Hemolysate Stool Occult Blood IgG IgA IgM DEBORAH & SPEP Interp Total Protein (DEBORAH) Albumin (DEBORAH) Albumin/Globulin (DEBORAH) Jwnxa-9-Mljjpikrb DEBORAH Kcspb-4-Uowlkxnft DEBORAH Gamma Globulins (DEBORAH) DEBORAH M-Hunter DEBORAH Comments IEP IgG IEP IgA IEP IgM Cold Agglutinins ANDREA Screen Blood Type Antibody Screen Crossmatch Active Medications Generic Name Dose Route Start Last Admin Trade Name Freq PRN Reason Stop Dose Admin Acetaminophen 650 mg 12/11/17 08:10 Tylenol - PO Q4H PRN FEVER Amlodipine Besylate 10 mg 12/10/17 12:00 12/11/17 09:02 Norvasc - PO 10 mg DAILY NEENA Administration Bisacodyl 20 mg 12/11/17 12:00 Dulcolax - PO 12/11/17 12:01 ONCE ONE Guaifenesin 10 ml 12/10/17 17:40 12/10/17 18:42 Guaifenesin Dm Syrup PO 10 ml Q8H PRN Administration COUGH Insulin Aspart 1 vial 12/07/17 22:00 12/11/17 06:06 Novolog Vial Sliding Scale - SQ Not Given ACHS NEENA Protocol Pantoprazole Sodium 40 mg 12/09/17 10:00 12/11/17 09:02 Protonix - PO 40 mg DAILY NEENA Administration Polyethylene Glycol/Electrolytes 4,000 ml 12/11/17 17:00 Golytely Solution - PO 12/11/17 17:01 ONCE ONE Sucralfate 1 gm 12/07/17 22:00 12/11/17 09:02 Carafate - PO 1 gm BID NEENA Administration ASSESSMENT/PLAN: Pt is a 67y/o F with PMH HTN, DM who presented to ED with abdominal pain and has been found to have cholelithiasis, and hemolytic anemia with neutropenia. #Fevers -new onset from 98F to 102F around 6am today -Pt is neutropenic, WBC 1.8 yest and 3.9 today -Hematology workup ongoing for hemolytic anemia -pt is s/p 2 PRBCs on 12/08 -Keep Cefipime until culture results -Quantiferon -CMV IgG/IgM -Parvo IgG/IgM -Monospot EBV -Mycoplasma IgG/IgM López Lyles MD PGY-1 ID Dispo: We will continue to follow the patient. Thank you for this consultative opportunity. Visit type - Emergency Visit Emergency Visit: No - New Patient This patient is new to me today: No - Critical Care Critical Care patient: No
[2017-12-11] MEDS: guaiFENesin/D-METHORPHAN HB 5 ML UNIT-DOSE CUPS PO PRN ×2 (11:39→21:11)
[2017-12-11] MEDS ORDERED: BISACODYL 5 MG TABLET.DR (FP) PO ONE (12:00)
--- NOTE | 2017-12-11 14:03 | PN ---
Teaching Attending Note Name of Resident: López Lyles ATTENDING PHYSICIAN STATEMENT I saw and evaluated the patient. I reviewed the resident's note and discussed the case with the resident. I agree with the resident's findings and plan as documented. SUBJECTIVE: OBJECTIVE: ASSESSMENT AND PLAN: 67 year old Swedish female with hemolytic anemia ? Antecedent viral URI ( e.g. EBV, CMV, Parvovirus) ? atypical pneumonia (e.g. Mycoplasma) No new meds Febrile neutropenia ? Colonic mass Await c/s Continue cefepime Obtain CMV, EBV, Parvo, mycoplasma serology Await bone marrow result
--- NOTE | 2017-12-11 14:14 | PN ---
Progress Note, Physician History of Present Illness: Asymptomatic. Sitting in chair. Comfortable. Spiked fever of 102 in the last 24 hours. Septic workup in progress. Total bili 1.4, direct 0.3. Normal liver chemistry and alk phos. Colonoscopy on hold as discussed with patient's resident and nurse. - Current Medication List Current Medications: Active Medications Acetaminophen (Tylenol -) 650 mg PO Q4H PRN PRN Reason: FEVER Amlodipine Besylate (Norvasc -) 10 mg PO DAILY [facility] Last Admin: 12/11/17 09:02 Dose: 10 mg Guaifenesin (Guaifenesin Dm Syrup) 10 ml PO Q8H PRN PRN Reason: COUGH Last Admin: 12/11/17 11:39 Dose: 10 ml Insulin Aspart (Novolog Vial Sliding Scale -) 1 vial SQ ACHS [facility] PRN Reason: Protocol Last Admin: 12/11/17 11:39 Dose: 4 units Pantoprazole Sodium (Protonix -) 40 mg PO DAILY [facility] Last Admin: 12/11/17 09:02 Dose: 40 mg Polyethylene Glycol/Electrolytes (Golytely Solution -) 4,000 ml PO ONCE ONE Stop: 12/11/17 17:01 Sucralfate (Carafate -) 1 gm PO BID [facility] Last Admin: 12/11/17 09:02 Dose: 1 gm - Objective Vital Signs: Vital Signs Temperature 102.9 F H 12/11/17 09:00 Pulse Rate 100 H 12/11/17 09:00 Respiratory Rate 20 12/11/17 09:00 Blood Pressure 124/56 12/11/17 09:00 O2 Sat by Pulse Oximetry (%) 95 12/11/17 09:00 Constitutional: Yes: Well Nourished, No Distress, Calm Eyes: Yes: Conjunctiva Clear HENT: Yes: Atraumatic Neck: Yes: Supple Cardiovascular: No: Bradycardia, Tachycardia Gastrointestinal: Yes: Soft. No: Melena, Rectal Bleeding, Tenderness, Vomiting Neurological: Yes: Alert Labs: CBC, BMP 12/11/17 06:00 12/11/17 06:00 INR, PTT INR 0.89 (0.82-1.09) 12/08/17 12:15 Fibrinogen 363.0 mg/dL (238-498) 12/07/17 21:10 Laboratory Last Values WBC 3.9 K/mm3 (4.0-10.0) L D 12/11/17 06:00 RBC 2.83 M/mm3 (3.60-5.2) L 12/11/17 06:00 Hgb 9.4 GM/dL (10.7-15.3) L 12/11/17 06:00 Hct 27.3 % (32.4-45.2) L 12/11/17 06:00 MCV 96.4 fl (80-96) H 12/11/17 06:00 MCH 33.4 pg (25.7-33.7) 12/11/17 06:00 MCHC 34.6 g/dl (32.0-36.0) 12/11/17 06:00 RDW 17.8 % (11.6-15.6) H D 12/11/17 06:00 Plt Count 142 K/MM3 (134-434) 12/11/17 06:00 MPV 6.8 fl (7.5-11.1) L 12/11/17 06:00 Neutrophils % 77.9 % (42.8-82.8) D 12/11/17 06:00 Neutrophils % (Manual) No Result Required. 12/10/17 06:52 Lymphocytes % 13.8 % (8-40) D 12/11/17 06:00 Monocytes % 6.0 % (3.8-10.2) 12/11/17 06:00 Eosinophils % 1.8 % (0-4.5) 12/11/17 06:00 Basophils % 0.5 % (0-2.0) 12/11/17 06:00 Platelet Estimate Adequate 12/07/17 15:47 Anisocytosis 1+ 12/07/17 15:47 Retic Count 6.80 % (0.5-1.5) H D 12/08/17 12:15 Haptoglobin 10 mg/dL (34-200) L 12/07/17 18:59 PT with INR 10.10 SEC (9.98-11.88) 12/08/17 12:15 INR 0.89 (0.82-1.09) 12/08/17 12:15 PTT (Actin FS) 26.5 SECONDS (26.9-34.4) L 12/08/17 12:15 Fibrinogen 363.0 mg/dL (238-498) 12/07/17 21:10 Sodium 136 mmol/L (136-145) 12/11/17 06:00 Potassium 4.9 mmol/L (3.5-5.1) 12/11/17 06:00 Chloride 104 mmol/L (98-107) 12/11/17 06:00 Carbon Dioxide 23 mmol/L (21-32) 12/11/17 06:00 Anion Gap 9 (8-16) 12/11/17 06:00 BUN 15 mg/dL (7-18) 12/11/17 06:00 Creatinine 0.8 mg/dL (0.55-1.02) 12/11/17 06:00 Creat Clearance w eGFR > 60 (>60) 12/11/17 06:00 POC Glucometer 223 UNITS (80-120) 12/11/17 11:21 Random Glucose 107 mg/dL (74-106) H 12/11/17 06:00 Calcium 8.0 mg/dL (8.5-10.1) L 12/11/17 06:00 Phosphorus 4.2 mg/dL (2.5-4.9) 12/08/17 12:15 Magnesium 2.8 mg/dL (1.8-2.4) H 12/08/17 12:15 Iron 34 ug/dL (27-139) 12/07/17 16:43 TIBC 247 ug/dL (250-450) L 12/07/17 16:43 Iron Saturation 14 % (15-55) L 12/07/17 16:43 Ferritin 25.638 ng/ml (6.9-282.5) 12/07/17 16:43 Total Bilirubin 1.4 mg/dL (0.2-1.0) H D 12/11/17 06:00 Direct Bilirubin 0.3 mg/dL (0.0-0.2) H 12/11/17 06:00 GGT 17 U/L (5-85) 12/07/17 18:59 AST 22 U/L (15-37) 12/11/17 06:00 ALT 15 U/L (12-78) 12/11/17 06:00 Alkaline Phosphatase 87 U/L (45-117) 12/11/17 06:00 LD Total 336 U/L (84-246) H 12/10/17 06:52 C-Reactive Protein 2.1 MG/DL (0.00-0.3) H 12/09/17 06:35 Total Protein 6.9 g/dl (6.4-8.2) 12/11/17 06:00 Albumin 3.8 g/dl (3.4-5.0) 12/11/17 06:00 Beta Globulins 0.9 g/dL (0.7-1.3) 12/08/17 12:15 Total Amylase 46 U/L (25-115) 12/09/17 06:35 Lipase 101 U/L (73-393) 12/09/17 06:35 Vitamin B12 863 pg/ml (180-914) 12/08/17 12:15 Folate 2619 ng/mL (>498) 12/07/17 21:10 Folate Hemolysate 366.6 ng/mL (Not Estab.) 12/07/17 21:10 TSH 0.59 uIU/ml (0.358-3.74) 12/08/17 12:15 Urine Color Yellow 12/07/17 15:47 Urine Appearance Clear 12/07/17 15:47 Urine pH 7.0 (5.0-8.0) 12/07/17 15:47 Ur Specific [place] 1.019 (1.001-1.035) 12/07/17 15:47 Urine Protein 1+ (NEGATIVE) H 12/07/17 15:47 Urine Glucose (UA) Negative (NEGATIVE) 12/07/17 15:47 Urine Ketones Negative (NEGATIVE) 12/07/17 15:47 Urine Blood Negative (NEGATIVE) 12/07/17 15:47 Urine Nitrite Negative (NEGATIVE) 12/07/17 15:47 Urine Bilirubin Negative (<2.0 mg/dL) 12/07/17 15:47 Urine Urobilinogen 4.0 e.u/dl mg/dL (0.2-1.0) H 12/07/17 15:47 Ur Leukocyte Esterase Negative (NEGATIVE) 12/07/17 15:47 Urine WBC (Auto) 1 /hpf (3-5) 12/07/17 15:47 Urine RBC (Auto) <1 /hpf (0-3) 12/07/17 15:47 Ur Epithelial Cells Rare /HPF (FEW) 12/07/17 15:47 Urine Bacteria Rare /hpf (NONE SEEN) 12/07/17 15:47 Hyaline Casts 4 /lpf 12/07/17 15:47 Urine Mucus Rare 12/07/17 15:47 Stool Occult Blood Negative (NEGATIVE) 12/10/17 10:00 IgG 872 mg/dL (700-1600) 12/09/17 06:35 IgA 142 mg/dL (87-352) 12/09/17 06:35 IgM 71 mg/dL (26-217) 12/09/17 06:35 DEBORAH & SPEP Interp (.) 12/08/17 12:15 Total Protein (DEBORAH) 6.3 g/dL (6.0-8.5) 12/08/17 12:15 Albumin (DEBORAH) 3.4 g/dL (2.9-4.4) 12/08/17 12:15 Albumin/Globulin (DEBORAH) 1.2 (0.7-1.7) 12/08/17 12:15 Idrjv-4-Rheachzhx DEBORAH 0.3 g/dL (0.0-0.4) 12/08/17 12:15 Qjsai-4-Nwcecpjbf DEBORAH 0.6 g/dL (0.4-1.0) 12/08/17 12:15 Gamma Globulins (DEBORAH) 1.2 g/dL (0.4-1.8) 12/08/17 12:15 DEBORAH M-Hunter Not observed g/dL (Not Observed) 12/08/17 12:15 DEBORAH Comments (.) 12/08/17 12:15 IEP IgG 976 mg/dL (700-1600) 12/08/17 12:15 IEP IgA 155 mg/dL (87-352) 12/08/17 12:15 IEP IgM 75 mg/dL (26-217) 12/08/17 12:15 Cold Agglutinins Negative TITER (Neg <1:32) 12/08/17 12:15 ANDREA Screen Negative (.) 12/08/17 12:15 Hepatitis A IgM Ab Negative (Negative) 12/07/17 18:59 Hep Bs Antigen Negative (Negative) 12/07/17 18:59 Hep B Core IgM Ab Negative (Negative) 12/07/17 18:59 Hepatitis C Antibody <0.1 s/co ratio (0.0-0.9) 12/07/17 18:59 HIV 1&2 Antibody Screen Negative 12/07/17 18:59 HIV P24 Antigen Negative 12/07/17 18:59 Blood Type O POSITIVE 12/08/17 12:15 Antibody Screen Negative 12/08/17 12:15 Direct Antiglob Test Positive (NEGATIVE) H 12/08/17 12:15 Crossmatch See Detail 12/08/17 12:15 Problem List - Problems (1) Abnormal CT of the abdomen Code(s): R93.5 - ABN FINDINGS ON DX IMAGING OF ABD REGIONS, INC RETROPERITON (2) Abdominal pain Code(s): R10.9 - UNSPECIFIED ABDOMINAL PAIN Qualifiers: Abdominal location: generalized Qualified Code(s): R10.84 - Generalized abdominal pain (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 Colonoscopy and prep discussed with pt's sister However on hold due to patient' s spiking fevers. Septic workup in progress.
[2017-12-11] MEDS ORDERED: PEG 3350/NA SULF BICARB CL/KCL 4000 ML SOLN.RECON PO ONE (17:00)
--- NOTE | 2017-12-11 18:35 | PN ---
Teaching Attending Note Name of Resident: Jacob Paul ATTENDING PHYSICIAN STATEMENT I saw and evaluated the patient. I reviewed the resident's note and discussed the case with the resident. I agree with the resident's findings and plan as documented. SUBJECTIVE: OBJECTIVE: Vital Signs Period Temp Pulse Resp BP Sys/Rodrigues Pulse Ox Last 24 Hr 98 F-102.9 F 66-119 18-20 112-136/50-93 95-97 Laboratory Results - last 24 hr 12/07/17 12/07/17 12/08/17 15:47 21:10 12:15 WBC RBC Hgb Hct 14.0 L* MCV MCH MCHC RDW Plt Count MPV Neutrophils % Lymphocytes % Monocytes % Eosinophils % Basophils % Sodium Potassium Chloride Carbon Dioxide Anion Gap BUN Creatinine Creat Clearance w eGFR POC Glucometer Random Glucose Calcium Total Bilirubin Direct Bilirubin AST ALT Alkaline Phosphatase Total Protein Albumin Beta Globulins 0.9 Folate 2619 Folate Hemolysate 366.6 Stool Occult Blood IgG IgA IgM DEBORAH & SPEP Interp Total Protein (DEBORAH) 6.3 Albumin (DEBORAH) 3.4 Albumin/Globulin (DEBORAH) 1.2 Rfnzo-8-Nyyogknue DEBORAH 0.3 Pteyl-8-Fmwzenmqx DEBORAH 0.6 Gamma Globulins (DEBORAH) 1.2 DEBORAH M-Hunter Not observed DEBORAH Comments IEP IgG 976 IEP IgA 155 IEP IgM 75 Cold Agglutinins Negative ANDREA Screen Negative Blood Type O POSITIVE Antibody Screen Negative Crossmatch See Detail 12/09/17 12/10/17 12/10/17 06:35 10:00 21:36 WBC RBC Hgb Hct MCV MCH MCHC RDW Plt Count MPV Neutrophils % Lymphocytes % Monocytes % Eosinophils % Basophils % Sodium Potassium Chloride Carbon Dioxide Anion Gap BUN Creatinine Creat Clearance w eGFR POC Glucometer 109 Random Glucose Calcium Total Bilirubin Direct Bilirubin AST ALT Alkaline Phosphatase Total Protein Albumin Beta Globulins Folate Folate Hemolysate Stool Occult Blood Negative IgG 872 IgA 142 IgM 71 DEBORAH & SPEP Interp Total Protein (DEBORAH) Albumin (DEBORAH) Albumin/Globulin (DEBORAH) Fzbrl-6-Owujknpfr DEBORAH Ewlrj-1-Fwplvaowd DEBORAH Gamma Globulins (DEBORAH) DEBORAH M-Hunter DEBORAH Comments IEP IgG IEP IgA IEP IgM Cold Agglutinins ANDREA Screen Blood Type Antibody Screen Crossmatch 12/11/17 12/11/17 12/11/17 06:00 06:00 06:05 WBC 3.9 L D RBC 2.83 L Hgb 9.4 L Hct 27.3 L MCV 96.4 H MCH 33.4 MCHC 34.6 RDW 17.8 H D Plt Count 142 MPV 6.8 L Neutrophils % 77.9 D Lymphocytes % 13.8 D Monocytes % 6.0 Eosinophils % 1.8 Basophils % 0.5 Sodium 136 Potassium 4.9 Chloride 104 Carbon Dioxide 23 Anion Gap 9 BUN 15 Creatinine 0.8 Creat Clearance w eGFR > 60 POC Glucometer 136 Random Glucose 107 H Calcium 8.0 L Total Bilirubin 1.4 H D Direct Bilirubin 0.3 H AST 22 ALT 15 Alkaline Phosphatase 87 Total Protein 6.9 Albumin 3.8 Beta Globulins Folate Folate Hemolysate Stool Occult Blood IgG IgA IgM DEBORAH & SPEP Interp Total Protein (DEBORAH) Albumin (DEBORAH) Albumin/Globulin (DEBORAH) Jjzax-5-Rdsanxmiq DEBORAH Sydoo-8-Cqanulfuj DEBORAH Gamma Globulins (DEBORAH) DEBORAH M-Hunter DEBORAH Comments IEP IgG IEP IgA IEP IgM Cold Agglutinins ANDREA Screen Blood Type Antibody Screen Crossmatch 12/11/17 12/11/17 11:21 16:09 WBC RBC Hgb Hct MCV MCH MCHC RDW Plt Count MPV Neutrophils % Lymphocytes % Monocytes % Eosinophils % Basophils % Sodium Potassium Chloride Carbon Dioxide Anion Gap BUN Creatinine Creat Clearance w eGFR POC Glucometer 223 209 Random Glucose Calcium Total Bilirubin Direct Bilirubin AST ALT Alkaline Phosphatase Total Protein Albumin Beta Globulins Folate Folate Hemolysate Stool Occult Blood IgG IgA IgM DEBORAH & SPEP Interp Total Protein (DEBORAH) Albumin (DEBORAH) Albumin/Globulin (DEBORAH) Rptrh-3-Tmemojwza DEBORAH Geifu-1-Csythbket DEBORAH Gamma Globulins (DEBORAH) DEBORAH M-Hunter DEBORAH Comments IEP IgG IEP IgA IEP IgM Cold Agglutinins ANDREA Screen Blood Type Antibody Screen Crossmatch Current Medications Generic Name Dose Route Start Last Admin Trade Name Freq PRN Reason Stop Dose Admin Acetaminophen 650 mg 12/11/17 08:10 12/11/17 16:32 Tylenol - PO 650 mg Q4H PRN Administration FEVER Amlodipine Besylate 10 mg 12/10/17 12:00 12/11/17 09:02 Norvasc - PO 10 mg DAILY NEENA Administration Guaifenesin 10 ml 12/10/17 17:40 12/11/17 11:39 Guaifenesin Dm Syrup PO 10 ml Q8H PRN Administration COUGH Insulin Aspart 1 vial 12/07/17 22:00 12/11/17 16:32 Novolog Vial Sliding Scale - SQ 4 units ACHS NEENA Administration Protocol Pantoprazole Sodium 40 mg 12/09/17 10:00 12/11/17 09:02 Protonix - PO 40 mg DAILY NEENA Administration Sucralfate 1 gm 12/07/17 22:00 12/11/17 09:02 Carafate - PO 1 gm BID NEENA Administration ASSESSMENT AND PLAN:
[2017-12-11] MEDS ORDERED: PT OWN MED DRAWER 7, Y5N ONE (20:50)
--- NOTE | 2017-12-11 21:54 | PN ---
Progress Note (short form) - Note Progress Note: Paged by RN due to +blood cultures Chart reviewed. 67yo F who presented from PCP's office due to anemia. She was found to be leukopenic with hemolytic labs (anemia, high retic, low hapto, +indirect bili). Clinton testing was positive, and patient was diagnosed w/ Autoimmune hemolytic anemia. Antibody detection undergoing. Last night pt was tachycardic and spiked fever to 103, prompting sepsis w/u. Bcx were drawn at that time. Blood cultures show gram positive cocci in chains in +2/2 bottles A/P: -- Possible that bacteremia is inducing her AIHA. One time dose of Cefepime was given this AM. ID note reviewed. -- Will re-order Cefepime 2g Q8H. Mayte Castañeda MD - [id number] Night Hose Tester
[2017-12-11] MEDS ORDERED: VANCOMYCIN 1,000 MG in DEXTROSE 5%-WATER - 250 ML IVPB SCH (23:30)
[2017-12-11] MEDS ORDERED: VANCOMYCIN 1,000 MG in DEXTROSE 5%-WATER - 250 ML IVPB ONE (23:45)
[2017-12-12] MEDS ORDERED: CEFEPIME 2 GM in DEXTROSE 5%-WATER - 100 ML IVPB SCH (02:00)
[2017-12-12] MEDS ORDERED: PT OWN MED DRAWER 7, Y5N ONE (05:50)
[2017-12-12] MEDS: INSULIN SLIDING SCALE (NOVOLOG) 1 VIAL SQ SCH ×4 (06:01→22:06)
[2017-12-12] MEDS: guaiFENesin/D-METHORPHAN HB 5 ML UNIT-DOSE CUPS PO PRN ×2 (06:05→19:08)
[2017-12-12 07:59] LABS: ALBUMIN 3.2 g/dl (3.4-5.0); ANION GAP 5 (8-16); BILIRUBIN,DIRECT 0.4 mg/dL (0.0-0.2); BLOOD UREA NITROGEN 25 mg/dL (7-18); CALCIUM 7.5 mg/dL (8.5-10.1); CHLORIDE 103 mmol/L (98-107); CO2 25 mmol/L (21-32); GLUCOSE,RANDOM 123 mg/dL (74-106); POTASSIUM 4.4 mmol/L (3.5-5.1); SGOT/AST 17 U/L (15-37); SGPT/ALT 14 U/L (12-78); SODIUM 133 mmol/L (136-145)
[2017-12-12 08:01] LABS: ALK PHOS 66 U/L (45-117); BILIRUBIN,TOTAL 1.3 mg/dL (0.2-1.0); TOT PROT 6.1 g/dl (6.4-8.2)
[2017-12-12] MEDS: SUCRALFATE 1 GM TABLET (FP) PO SCH (10:02)
[2017-12-12 10:19] LABS: BASO % 0.2 % (0-2.0); EOS % 1.2 % (0-4.5); HEMATOCRIT 23.7 % (32.4-45.2); LYMPH % 11.1 % (8-40); MCH 33.2 pg (25.7-33.7); MCHC 33.9 g/dl (32.0-36.0); MEAN CELL VOLUME 97.7 fl (80-96); MEAN PLT VOLUME 6.7 fl (7.5-11.1); NEUT % 82.5 % (42.8-82.8); PLATELET COUNT 129 K/MM3 (134-434); RBC 2.42 M/mm3 (3.60-5.2); WHITE BLOOD COUNT 4.3 K/mm3 (4.0-10.0)
[2017-12-12] MEDS ORDERED: DEXTROSE 5%-WATER 100 ML IVPB ONE (10:40)
[2017-12-12] MEDS: amLODIPine BESYLATE 10 MG TABLET (FP) PO SCH (10:43)
[2017-12-12] MEDS: PANTOPRAZOLE 40 MG TABLET (FP) PO SCH (10:43)
[2017-12-12] MEDS: CEFTRIAXONE 2 GM in DEXTROSE 5%-WATER 100 ML IVPB SCH (10:43)
--- NOTE | 2017-12-12 11:33 | PN ---
Progress Note, Physician History of Present Illness: Afebrile on Rocephin and Vanco, cultures pending, neutropenia resolved, colonscopy postponed. - Current Medication List Current Medications: Active Medications Acetaminophen (Tylenol -) 650 mg PO Q4H PRN PRN Reason: FEVER Last Admin: 12/11/17 16:32 Dose: 650 mg Amlodipine Besylate (Norvasc -) 10 mg PO DAILY [facility] Last Admin: 12/12/17 10:43 Dose: 10 mg Guaifenesin (Guaifenesin Dm Syrup) 10 ml PO Q8H PRN PRN Reason: COUGH Last Admin: 12/12/17 06:05 Dose: 10 ml Ceftriaxone Sodium 2 gm/ (Dextrose) 100 mls @ 100 mls/hr IVPB DAILY [facility] Last Admin: 12/12/17 10:43 Dose: 100 mls/hr Vancomycin HCl 1,000 mg/ (Dextrose) 250 mls @ 166.667 mls/hr IVPB BID@0100, 1300 [facility] Insulin Aspart (Novolog Vial Sliding Scale -) 1 vial SQ ACHS [facility] PRN Reason: Protocol Last Admin: 12/12/17 06:01 Dose: Not Given Pantoprazole Sodium (Protonix -) 40 mg PO DAILY [facility] Last Admin: 12/12/17 10:43 Dose: 40 mg Sucralfate (Carafate -) 1 gm PO BID [facility] Last Admin: 12/11/17 21:11 Dose: 1 gm - Objective Vital Signs: Vital Signs Temperature 98.8 F 12/12/17 05:54 Pulse Rate 78 12/12/17 05:54 Respiratory Rate 18 12/12/17 05:54 Blood Pressure 138/64 12/12/17 05:54 O2 Sat by Pulse Oximetry (%) 95 12/11/17 21:22 Constitutional: Yes: No Distress, Calm, Thin Neck: Yes: Supple Cardiovascular: Yes: Regular Rate and Rhythm Respiratory: Yes: Regular, Diminished Gastrointestinal: Yes: Normal Bowel Sounds, Soft Edema: No Labs: CBC, BMP 12/12/17 06:20 12/12/17 06:20 INR, PTT INR 0.89 (0.82-1.09) 12/08/17 12:15 Fibrinogen 363.0 mg/dL (238-498) 12/07/17 21:10 Problem List - Problems (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 - OTHER AUTOIMMUNE HEMOLYTIC ANEMIAS (2) Hypertension Code(s): I10 - ESSENTIAL (PRIMARY) HYPERTENSION Qualifiers: Hypertension type: essential hypertension Qualified Code(s): I10 - Essential (primary) hypertension (3) Leukopenia Code(s): D72.819 - DECREASED WHITE BLOOD CELL COUNT, UNSPECIFIED Qualifiers: Leukopenia type: neutropenia (4) Indirect hyperbilirubinemia Code(s): E80.6 - OTHER DISORDERS OF BILIRUBIN METABOLISM Assessment/Plan 12/11/2017 Echo: Normal biventricular size and fxn, abnormal LV compliance, mild MR, TR 1. Autoimmune hemolytic anemia post transfusion PRBC 2. Jaundice secondary to AIHA 3. Neutropenia resolved 4. HTN 5. Type 2 DM 6. Rule out sigmoid neoplasm PLAN: 1. Follow up bone marrow biopsy results 2. Empiric abx course per C&S 3. Continue on Norvasc 5 qd 4. Await colonoscopy as per GI.
[2017-12-12] MEDS: VANCOMYCIN 1,000 MG in DEXTROSE 5%-WATER - 250 ML IVPB SCH (14:04)
--- NOTE | 2017-12-12 14:40 | PN ---
Physical Exam: SUBJECTIVE: Patient seen and examined at bedside. No new complaints at this time. Pt feels well. Had fever 100.9 yest afternoon and has been afebrile since then. Continues to cough. OBJECTIVE: Vital Signs Period Temp Pulse Resp BP Sys/Rodrigues Pulse Ox Last 24 Hr 98.1 F-100.9 F 67-95 18-20 106-138/50-64 95 GENERAL: The patient is awake, alert, and fully oriented, in no acute distress. HEAD: Normal with no signs of trauma. EYES: sclera anicteric, conjunctiva clear. No ptosis. ENT: oropharynx clear without exudates, moist mucous membranes. NECK: Trachea midline, full range of motion, supple. LUNGS: Breath sounds equal, clear to auscultation bilaterally, no wheezes, no crackles, no accessory muscle use. HEART: Regular rate and rhythm, S1, S2 with soft 2/6 systolic blowing LUSB murmur, rub or gallop. ABDOMEN: Soft, nontender, nondistended, normoactive bowel sounds, no guarding, no rebound, no hepatosplenomegaly, no masses. EXTREMITIES: 2+ pulses, warm, well-perfused, no edema. NEUROLOGICAL: Cranial nerves II through XII grossly intact. Normal speech, gait not observed. PSYCH: Normal mood, normal affect. SKIN: Warm, dry, normal turgor, no rashes or lesions noted Laboratory Results - last 24 hr 12/07/17 12/11/17 12/11/17 15:47 16:09 21:05 WBC RBC Hgb Hct MCV MCH MCHC RDW Plt Count MPV Neutrophils % Lymphocytes % Monocytes % Eosinophils % Basophils % Sodium Potassium Chloride Carbon Dioxide Anion Gap BUN Creatinine POC Glucometer 209 120 Random Glucose Calcium Total Bilirubin Direct Bilirubin AST ALT Alkaline Phosphatase Total Protein Albumin Crossmatch See Detail 12/12/17 12/12/17 12/12/17 05:57 06:20 06:20 WBC 4.3 RBC 2.42 L Hgb 8.0 L D Hct 23.7 L MCV 97.7 H MCH 33.2 MCHC 33.9 RDW 18.0 H Plt Count 129 L MPV 6.7 L Neutrophils % 82.5 Lymphocytes % 11.1 Monocytes % 5.0 Eosinophils % 1.2 Basophils % 0.2 Sodium 133 L Potassium 4.4 Chloride 103 Carbon Dioxide 25 Anion Gap 5 L BUN 25 H Creatinine 1.0 POC Glucometer 125 Random Glucose 123 H Calcium 7.5 L Total Bilirubin 1.3 H Direct Bilirubin 0.4 H AST 17 ALT 14 Alkaline Phosphatase 66 Total Protein 6.1 L Albumin 3.2 L Crossmatch Active Medications Generic Name Dose Route Start Last Admin Trade Name Freq PRN Reason Stop Dose Admin Acetaminophen 650 mg 12/11/17 08:10 12/11/17 16:32 Tylenol - PO 650 mg Q4H PRN Administration FEVER Amlodipine Besylate 10 mg 12/10/17 12:00 12/12/17 10:43 Norvasc - PO 10 mg DAILY [facility] Administration Guaifenesin 10 ml 12/10/17 17:40 12/12/17 06:05 Guaifenesin Dm Syrup PO 10 ml Q8H PRN Administration COUGH Ceftriaxone Sodium 2 gm/ 100 mls @ 100 mls/hr 12/12/17 10:15 12/12/17 10:43 Dextrose IVPB 100 mls/hr DAILY [facility] Administration Vancomycin HCl 1,000 mg/ 250 mls @ 166.667 mls/hr 12/12/17 13:00 12/12/17 14: 04 Dextrose IVPB 166.667 mls/hr BID@0100,1300 [facility] Administration Insulin Aspart 1 vial 12/07/17 22:00 12/12/17 11:40 Novolog Vial Sliding Scale - SQ 2 units ACHS [facility] Administration Protocol ASSESSMENT/PLAN: Pt is a 67y/o F with PMH HTN, DM who presented to ED with abdominal pain and has been found to have cholelithiasis, and hemolytic anemia with neutropenia. #Fevers -afebrile since yest afternoon -neutropenia resolved. WBC 4.3 -Hematology workup ongoing for autoimmune hemolytic anemia -pt is s/p 2 PRBCs on 12/08 -Keep Cefipime until culture results -BCx (12/11) positvie for Strep pneumo -Quantiferon pending -CMV IgG/IgM pending -Parvo IgG/IgM pending -Monospot EBV pending -Mycoplasma IgG/IgM pending. Unlikely as heme lab would have López Lyles MD PGY-1 ID Visit type - Emergency Visit Emergency Visit: No - New Patient This patient is new to me today: No - Critical Care Critical Care patient: No
--- NOTE | 2017-12-12 15:12 | PN ---
Teaching Attending Note Name of Resident: López Lyles ATTENDING PHYSICIAN STATEMENT I saw and evaluated the patient. I reviewed the resident's note and discussed the case with the resident. I agree with the resident's findings and plan as documented. SUBJECTIVE: afebrile no complaints sitting in a chair OBJECTIVE: Vital Signs Period Temp Pulse Resp BP Sys/Rodrigues Pulse Ox Last 24 Hr 98.1 F-100.9 F 67-95 18-20 106-138/50-64 95 cor-rrr lungs clear abd soft,nt ext no edema no joint swelling CBC, BMP 12/12/17 06:20 12/12/17 06:20 Microbiology 12/11/17 06:55 Urine - Urine Clean Catch Urine Culture - Preliminary Pending Organism Pending Organism#2 12/11/17 06:45 Blood - Peripheral Venous Blood Culture - Preliminary Streptococcus Pneumoniae 12/11/17 06:40 Blood - Peripheral Venous Blood Culture - Preliminary Streptococcus Pneumoniae ASSESSMENT AND PLAN: pneumococcal bacteremia ?source repeat blood cultures continue vancomycin and rocephin checking complements hiv negative hemolytic anemia
--- NOTE | 2017-12-12 16:02 | PN ---
Physical Exam: SUBJECTIVE: Patient seen and examined No acute events overnight. Patient states she feels well this morning. Patient denies any fever, chills, cough, n/v/d/c, abdominal pain. Tmax of 100.9 over last 24 hours OBJECTIVE: Vital Signs Period Temp Pulse Resp BP Sys/Rodrigues Pulse Ox Last 24 Hr 98.1 F-100.9 F 67-86 18-18 106-138/50-64 95 GENERAL: The patient is awake, alert, and fully oriented, in no acute distress. +Jaundice HEAD: Normal with no signs of trauma. EYES: Extraocular movements intact, scleral icterus, conjunctiva clear. No ptosis. ENT: Oropharynx unable to assess NECK: Trachea midline, full range of motion, supple. LUNGS: Breath sounds equal, clear to auscultation bilaterally, no wheezes, no crackles, no accessory muscle use. HEART: Tachycardic,Regular rhythm, S1, S2 without murmur, rub or gallop. ABDOMEN: Soft, nontender, nondistended, normoactive bowel sounds, no guarding, no rebound, no hepatosplenomegaly, no masses. EXTREMITIES: 2+ pulses, warm, well-perfused, no edema. Laboratory Results - last 24 hr 12/07/17 12/11/17 12/11/17 15:47 16:09 21:05 WBC RBC Hgb Hct MCV MCH MCHC RDW Plt Count MPV Neutrophils % Lymphocytes % Monocytes % Eosinophils % Basophils % Sodium Potassium Chloride Carbon Dioxide Anion Gap BUN Creatinine POC Glucometer 209 120 Random Glucose Calcium Total Bilirubin Direct Bilirubin AST ALT Alkaline Phosphatase Total Protein Albumin Crossmatch See Detail 12/12/17 12/12/17 12/12/17 05:57 06:20 06:20 WBC 4.3 RBC 2.42 L Hgb 8.0 L D Hct 23.7 L MCV 97.7 H MCH 33.2 MCHC 33.9 RDW 18.0 H Plt Count 129 L MPV 6.7 L Neutrophils % 82.5 Lymphocytes % 11.1 Monocytes % 5.0 Eosinophils % 1.2 Basophils % 0.2 Sodium 133 L Potassium 4.4 Chloride 103 Carbon Dioxide 25 Anion Gap 5 L BUN 25 H Creatinine 1.0 POC Glucometer 125 Random Glucose 123 H Calcium 7.5 L Total Bilirubin 1.3 H Direct Bilirubin 0.4 H AST 17 ALT 14 Alkaline Phosphatase 66 Total Protein 6.1 L Albumin 3.2 L Crossmatch Active Medications Generic Name Dose Route Start Last Admin Trade Name Freq PRN Reason Stop Dose Admin Acetaminophen 650 mg 12/11/17 08:10 12/11/17 16:32 Tylenol - PO 650 mg Q4H PRN Administration FEVER Amlodipine Besylate 10 mg 12/10/17 12:00 12/12/17 10:43 Norvasc - PO 10 mg DAILY [facility] Administration Guaifenesin 10 ml 12/10/17 17:40 12/12/17 06:05 Guaifenesin Dm Syrup PO 10 ml Q8H PRN Administration COUGH Ceftriaxone Sodium 2 gm/ 100 mls @ 100 mls/hr 12/12/17 10:15 12/12/17 10:43 Dextrose IVPB 100 mls/hr DAILY [facility] Administration Vancomycin HCl 1,000 mg/ 250 mls @ 166.667 mls/hr 12/12/17 13:00 12/12/17 14: 04 Dextrose IVPB 166.667 mls/hr BID@0100,1300 [facility] Administration Insulin Aspart 1 vial 12/07/17 22:00 12/12/17 11:40 Novolog Vial Sliding Scale - SQ 2 units ACHS [facility] Administration Protocol ASSESSMENT/PLAN: 67 year old F with pmh of HTN and DM presented from PCP's office with anemia and leukopenia #Strep Pneumo bacteremia and Strep viridans urine culture -Continue Vanco 1g BID/Ceftriaxone 2 g daily -Repeat blood cultures drawn on 12/12 -ID consulted -Tylenol for fever #Hemolytic Anemia and Leukopenia, resolving -AUNDREA+ -pending bone marrow biopsy results -Workup mostly negative so far -CT chest/abd/pelvis concerning for sigmoid irregularity -Colonoscopy on hold 09/28 to fever/tachycardia -Neutropenic precautions -GI Consult -Heme Consult #Cardiomegaly -Echocardiogram impaired lv relaxation, EF 70%, LV size/thickness/fxn -Cardiology consulted #HTN -norvasc 10 po daily -monitor bp #DM -Bgm achs -iss achs #FEN/GI. PPx -No IVF -wnl -Clear liquid -scd's Visit type - Emergency Visit Emergency Visit: Yes ED Registration Date: 12/07/17 Care time: The patient presented to the Emergency Department on the above date and was hospitalized for further evaluation of their emergent condition. - New Patient This patient is new to me today: No - Critical Care Critical Care patient: No
--- NOTE | 2017-12-12 18:46 | PN ---
Teaching Attending Note Name of Resident: Jacob Paul ATTENDING PHYSICIAN STATEMENT I saw and evaluated the patient. I reviewed the resident's note and discussed the case with the resident. I agree with the resident's findings and plan as documented. SUBJECTIVE: no pain, has no fever or chills today. no N/V. complained of sore throat today OBJECTIVE: NAD HEENT: MMM, jaundiced , unable to visualize the oropharynx , L tongue base vascular-like lesion. non tender CV: RRR Lungs: CTAB Abd: soft, NT, ND ,nl BS NO LAP in groin, axilla or neck ASSESSMENT AND PLAN: 67 y/o lady with h/o HTN and Dm who presented with anemia and leukopenia from PCP 's office 1- Acute hemolytic anemia : could be due to infection VS autoimmune - stable HB after transfusion 2- Leukopenia: ? infection , recovering now 3- strep pneumo BActeremia: unclear source. complained of sore throat, but unable to view oropharynx. no LAP in neck/groin/axilla - cont Abx ceftriaxone and vanco - ID input appreciated - repeat Blood cx this am - no vegetations on ECho 4- UTI : strep viridance 5- HTN : cont norvasc 6- sigmoid colon irregularity: Colonoscopy when appropriate 7- DM : SSI . A1c dispo : HLOC
[2017-12-13] MEDS ORDERED: PT OWN MED DRAWER 7, Y5N ONE (00:03)
[2017-12-13] MEDS: VANCOMYCIN 1,000 MG in DEXTROSE 5%-WATER - 250 ML IVPB SCH ×2 (00:12→13:00)
[2017-12-13] MEDS: INSULIN SLIDING SCALE (NOVOLOG) 1 VIAL SQ SCH ×4 (06:07→21:58)
[2017-12-13 08:41] LABS: BASO % 0.7 % (0-2.0); EOS % 2.4 % (0-4.5); HEMATOCRIT 22.2 % (32.4-45.2); HEMOGLOBIN 7.8 GM/dL (10.7-15.3); LYMPH % 18.8 % (8-40); MCH 33.2 pg (25.7-33.7); MEAN CELL VOLUME 94.8 fl (80-96); MEAN PLT VOLUME 6.6 fl (7.5-11.1); MONO % 7.8 % (3.8-10.2); NEUT % 70.3 % (42.8-82.8); PLATELET COUNT 135 K/MM3 (134-434); RBC 2.34 M/mm3 (3.60-5.2); RDW 17.3 % (11.6-15.6); WHITE BLOOD COUNT 2.5 K/mm3 (4.0-10.0)
[2017-12-13 09:11] LABS: ALBUMIN 3.1 g/dl (3.4-5.0); ANION GAP 5 (8-16); BILIRUBIN,DIRECT 0.2 mg/dL (0.0-0.2); BILIRUBIN,TOTAL 0.6 mg/dL (0.2-1.0); BLOOD UREA NITROGEN 17 mg/dL (7-18); CALCIUM 7.5 mg/dL (8.5-10.1); CHLORIDE 105 mmol/L (98-107); CO2 26 mmol/L (21-32); CREATININE 0.7 mg/dL (0.55-1.02); GLUCOSE,RANDOM 103 mg/dL (74-106); POTASSIUM 4.5 mmol/L (3.5-5.1); SGOT/AST 16 U/L (15-37); SGPT/ALT 12 U/L (12-78); SODIUM 136 mmol/L (136-145)
[2017-12-13 09:12] LABS: ALK PHOS 66 U/L (45-117)
[2017-12-13 10:12] LABS: CMV IgM < 30.0 AU/mL (0.0-29.9)
[2017-12-13] MEDS ORDERED: DEXTROSE 5%-WATER 100 ML IVPB ONE (10:28)
[2017-12-13] MEDS: CEFTRIAXONE 2 GM in DEXTROSE 5%-WATER 100 ML IVPB SCH (10:30)
[2017-12-13] MEDS: amLODIPine BESYLATE 10 MG TABLET (FP) PO SCH (10:30)
--- NOTE | 2017-12-13 11:35 | PN ---
Progress Note, Physician History of Present Illness: Afebrile on Rocephin and Vanco, cultures pending, neutropenia resolved, colonscopy postponed. - Current Medication List Current Medications: Active Medications Acetaminophen (Tylenol -) 650 mg PO Q4H PRN PRN Reason: FEVER Last Admin: 12/11/17 16:32 Dose: 650 mg Amlodipine Besylate (Norvasc -) 10 mg PO DAILY [facility] Last Admin: 12/13/17 10:30 Dose: 10 mg Guaifenesin (Guaifenesin Dm Syrup) 10 ml PO Q8H PRN PRN Reason: COUGH Last Admin: 12/12/17 19:08 Dose: 10 ml Ceftriaxone Sodium 2 gm/ (Dextrose) 100 mls @ 100 mls/hr IVPB DAILY [facility] Last Admin: 12/13/17 10:30 Dose: 100 mls/hr Vancomycin HCl 1,000 mg/ (Dextrose) 250 mls @ 166.667 mls/hr IVPB BID@0100, 1300 [facility] Last Admin: 12/13/17 00:12 Dose: 166.667 mls/hr Insulin Aspart (Novolog Vial Sliding Scale -) 1 vial SQ ACHS [facility] PRN Reason: Protocol Last Admin: 12/13/17 11:28 Dose: Not Given - Objective Vital Signs: Vital Signs Temperature 97.8 F 12/13/17 10:00 Pulse Rate 72 12/13/17 10:00 Respiratory Rate 14 12/13/17 10:00 Blood Pressure 142/52 12/13/17 10:00 O2 Sat by Pulse Oximetry (%) 100 12/12/17 20:17 Constitutional: Yes: No Distress, Calm, Thin Neck: Yes: Supple Cardiovascular: Yes: Regular Rate and Rhythm Respiratory: Yes: Regular, CTA Bilaterally Gastrointestinal: Yes: Normal Bowel Sounds, Soft Edema: No Labs: CBC, BMP 12/13/17 06:30 12/13/17 06:30 INR, PTT INR 0.89 (0.82-1.09) 12/08/17 12:15 Fibrinogen 363.0 mg/dL (238-498) 12/07/17 21:10 Problem List - Problems (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 - OTHER AUTOIMMUNE HEMOLYTIC ANEMIAS (2) Hypertension Code(s): I10 - ESSENTIAL (PRIMARY) HYPERTENSION Qualifiers: Hypertension type: essential hypertension Qualified Code(s): I10 - Essential (primary) hypertension (3) Leukopenia Code(s): D72.819 - DECREASED WHITE BLOOD CELL COUNT, UNSPECIFIED Qualifiers: Leukopenia type: neutropenia (4) Indirect hyperbilirubinemia Code(s): E80.6 - OTHER DISORDERS OF BILIRUBIN METABOLISM (5) Bacteremia due to Streptococcus pneumoniae Code(s): R78.81 - BACTEREMIA Assessment/Plan 12/11/2017 Echo: Normal biventricular size and fxn, abnormal LV compliance, mild MR, TR 1. Pneumococcal bacteremia 2. Autoimmune hemolytic anemia post transfusion PRBC 3. Jaundice secondary to AIHA 4. Neutropenia resolved 5. HTN 6. Type 2 DM 7. Rule out sigmoid neoplasm PLAN: 1. Follow up bone marrow biopsy results 2. Empiric abx course per surveillance C&S 3. Continue on Norvasc 5 qd 4. Await colonoscopy as per GI.
--- NOTE | 2017-12-13 11:37 | PN ---
Physical Exam: SUBJECTIVE: Patient seen and examined No acute events overnight. Patient has mild cough this morning. Denies any other complaints OBJECTIVE: Vital Signs Period Temp Pulse Resp BP Sys/Rodrigues Pulse Ox Last 24 Hr 96.7 F-98.5 F 72-87 14-18 123-154/48-64 100 GENERAL: The patient is awake, alert, and fully oriented, in no acute distress. +Jaundice HEAD: Normal with no signs of trauma. EYES: Extraocular movements intact, scleral icterus, conjunctiva clear. No ptosis. ENT: vascular lesion in left base of tongue, no pharyngeal erythema, mild tonsillar enlargement NECK: Trachea midline, full range of motion, supple. LUNGS: Breath sounds equal, clear to auscultation bilaterally, no wheezes, no crackles, no accessory muscle use. HEART: Tachycardic,Regular rhythm, S1, S2 without murmur, rub or gallop. ABDOMEN: Soft, nontender, nondistended, normoactive bowel sounds, no guarding, no rebound, no hepatosplenomegaly, no masses. EXTREMITIES: 2+ pulses, warm, well-perfused, no edema. Laboratory Results - last 24 hr 12/12/17 12/12/17 12/12/17 06:20 12:28 16:54 WBC RBC Hgb Hct MCV MCH MCHC RDW Plt Count MPV Neutrophils % Lymphocytes % Monocytes % Eosinophils % Basophils % Retic Count Sodium Potassium Chloride Carbon Dioxide Anion Gap BUN Creatinine POC Glucometer 190 133 Random Glucose Hemoglobin A1c % Calcium Total Bilirubin Direct Bilirubin AST ALT Alkaline Phosphatase LD Total Total Protein Albumin CMV IgM Ab < 30.0 12/12/17 12/13/17 12/13/17 20:42 06:06 06:30 WBC 2.5 L D RBC 2.34 L Hgb 7.8 L Hct 22.2 L MCV 94.8 MCH 33.2 MCHC 35.0 RDW 17.3 H Plt Count 135 MPV 6.6 L Neutrophils % 70.3 Lymphocytes % 18.8 D Monocytes % 7.8 Eosinophils % 2.4 D Basophils % 0.7 D Retic Count Sodium Potassium Chloride Carbon Dioxide Anion Gap BUN Creatinine POC Glucometer 160 123 Random Glucose Hemoglobin A1c % Calcium Total Bilirubin Direct Bilirubin AST ALT Alkaline Phosphatase LD Total Total Protein Albumin CMV IgM Ab 12/13/17 12/13/17 12/13/17 06:30 06:30 06:30 WBC RBC Hgb Hct MCV MCH MCHC RDW Plt Count MPV Neutrophils % Lymphocytes % Monocytes % Eosinophils % Basophils % Retic Count 1.07 D Sodium 136 Potassium 4.5 Chloride 105 Carbon Dioxide 26 Anion Gap 5 L BUN 17 Creatinine 0.7 POC Glucometer Random Glucose 103 Hemoglobin A1c % 5.2 Calcium 7.5 L Total Bilirubin 0.6 D Direct Bilirubin 0.2 AST 16 ALT 12 Alkaline Phosphatase 66 LD Total Total Protein 6.0 L Albumin 3.1 L CMV IgM Ab 12/13/17 06:30 WBC RBC Hgb Hct MCV MCH MCHC RDW Plt Count MPV Neutrophils % Lymphocytes % Monocytes % Eosinophils % Basophils % Retic Count Sodium Potassium Chloride Carbon Dioxide Anion Gap BUN Creatinine POC Glucometer Random Glucose Hemoglobin A1c % Calcium Total Bilirubin Direct Bilirubin AST ALT Alkaline Phosphatase LD Total Cancelled Total Protein Albumin CMV IgM Ab Active Medications Generic Name Dose Route Start Last Admin Trade Name Freq PRN Reason Stop Dose Admin Acetaminophen 650 mg 12/11/17 08:10 12/11/17 16:32 Tylenol - PO 650 mg Q4H PRN Administration FEVER Amlodipine Besylate 10 mg 12/10/17 12:00 12/13/17 10:30 Norvasc - PO 10 mg DAILY [facility] Administration Guaifenesin 10 ml 12/10/17 17:40 12/12/17 19:08 Guaifenesin Dm Syrup PO 10 ml Q8H PRN Administration COUGH Ceftriaxone Sodium 2 gm/ 100 mls @ 100 mls/hr 12/12/17 10:15 12/13/17 10:30 Dextrose IVPB 100 mls/hr DAILY [facility] Administration Vancomycin HCl 1,000 mg/ 250 mls @ 166.667 mls/hr 12/12/17 13:00 12/13/17 00: 12 Dextrose IVPB 166.667 mls/hr BID@0100,1300 [facility] Administration Insulin Aspart 1 vial 12/07/17 22:00 12/13/17 11:28 Novolog Vial Sliding Scale - SQ Not Given ACHS [facility] Protocol ASSESSMENT/PLAN: 67 year old F with pmh of HTN and DM presented from PCP's office with anemia and leukopenia #Strep Pneumo bacteremia and Strep viridans urine culture -Continue Vanco 1g BID/Ceftriaxone 2 g daily -Repeat blood cultures drawn on 12/12 -ID consulted -Tylenol for fever #Hemolytic Anemia and Leukopenia, resolving -AUNDREA+ -pending bone marrow biopsy results -Workup mostly negative so far -CT chest/abd/pelvis concerning for sigmoid irregularity -Colonoscopy on hold 2/2 to fever/tachycardia, will touch base with GI regarding future plans -Neutropenic precautions -GI Consult -Heme Consult #Cardiomegaly -Echocardiogram impaired lv relaxation, EF 70%, LV size/thickness/fxn -Cardiology consulted #HTN -norvasc 10 po daily -monitor bp #DM -Bgm achs -iss achs #FEN/GI. PPx -No IVF -wnl -Clear liquid -scd's Visit type - Emergency Visit Emergency Visit: Yes ED Registration Date: 12/07/17 Care time: The patient presented to the Emergency Department on the above date and was hospitalized for further evaluation of their emergent condition. - New Patient This patient is new to me today: No - Critical Care Critical Care patient: No
--- NOTE | 2017-12-13 13:55 | PN ---
Progress Note (short form) - Note Progress Note: pt seen and examined. Chart reviewed Family at bedside. She feels no pain. Now febrile Constitutional: Yes: Well Nourished, No Distress Eyes: Yes: Conjunctiva Clear, Sclera Icterus HENT: Yes: Atraumatic, Normocephalic Neck: Yes: Supple Cardiovascular: Yes: Regular Rate and Rhythm Respiratory: Yes: Regular, CTA Bilaterally Gastrointestinal: Yes: Normal Bowel Sounds, Soft, Abdomen, Obese Extremities: Yes: WNL Edema: No Neurological: Yes: Alert, Last Vital Signs Temp Pulse Resp BP Pulse Ox 102.9 F H 100 H 20 124/56 95 12/11/17 09:00 12/11/17 09:00 12/11/17 09:00 12/11/17 09:00 12/11/17 09:00 CBC, BMP 12/11/17 06:00 12/11/17 06:00 Current Medications Generic Name Dose Route Start Last Admin Trade Name Freq PRN Reason Stop Dose Admin Acetaminophen 650 mg 12/11/17 08:10 Tylenol - PO Q4H PRN FEVER Amlodipine Besylate 10 mg 12/10/17 12:00 12/11/17 09:02 Norvasc - PO 10 mg DAILY [facility] Administration Bisacodyl 20 mg 12/11/17 12:00 Dulcolax - PO 12/11/17 12:01 ONCE ONE Guaifenesin 10 ml 12/10/17 17:40 12/10/17 18:42 Guaifenesin Dm Syrup PO 10 ml Q8H PRN Administration COUGH Insulin Aspart 1 vial 12/07/17 22:00 12/11/17 06:06 Novolog Vial Sliding Scale - SQ Not Given ACHS [facility] Protocol Pantoprazole Sodium 40 mg 12/09/17 10:00 12/11/17 09:02 Protonix - PO 40 mg DAILY [facility] Administration Polyethylene Glycol/Electrolytes 4,000 ml 12/11/17 17:00 Golytely Solution - PO 12/11/17 17:01 ONCE ONE Sucralfate 1 gm 12/07/17 22:00 12/11/17 09:02 Carafate - PO 1 gm BID [facility] Administration Fever w/u: As per ID Rx per ID BC positivity 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 IgG -ve, C3+ No steroids f.u on Bone marrow results. CT scan findings: Colonoscopy when able to ( as long as ANC >1500 from Heme stand point)
[2017-12-13 14:08] LABS: LDH 246 U/L (84-246)
--- NOTE | 2017-12-13 14:08 | PN ---
Physical Exam: SUBJECTIVE: Patient seen and examined at bedside. No new complaints. Has been afebrile. Continues to complain of cough. OBJECTIVE: Vital Signs Period Temp Pulse Resp BP Sys/Rodrigues Pulse Ox Last 24 Hr 96.7 F-98.5 F 72-87 14-18 123-154/48-64 98-100 GENERAL: The patient is awake, alert, and fully oriented, in no acute distress. HEAD: Normal with no signs of trauma. EYES: sclera anicteric, conjunctiva clear. No ptosis. ENT: oropharynx clear without exudates, moist mucous membranes. NECK: Trachea midline, full range of motion, supple. LUNGS: Breath sounds equal, clear to auscultation bilaterally, no wheezes, no crackles, no accessory muscle use. HEART: Regular rate and rhythm, S1, S2 with soft 2/6 systolic blowing LUSB murmur, rub or gallop. ABDOMEN: Soft, nontender, nondistended, normoactive bowel sounds, no guarding, no rebound, no hepatosplenomegaly, no masses. EXTREMITIES: 2+ pulses, warm, well-perfused, no edema. NEUROLOGICAL: Cranial nerves II through XII grossly intact. Normal speech, gait not observed. PSYCH: Normal mood, normal affect. SKIN: Warm, dry, normal turgor, no rashes or lesions noted Laboratory Results - last 24 hr 12/12/17 12/12/17 12/12/17 06:20 12:28 16:54 WBC RBC Hgb Hct MCV MCH MCHC RDW Plt Count MPV Neutrophils % Lymphocytes % Monocytes % Eosinophils % Basophils % Retic Count Sodium Potassium Chloride Carbon Dioxide Anion Gap BUN Creatinine POC Glucometer 190 133 Random Glucose Hemoglobin A1c % Calcium Total Bilirubin Direct Bilirubin AST ALT Alkaline Phosphatase LD Total Total Protein Albumin CMV IgM Ab < 30.0 12/12/17 12/13/17 12/13/17 20:42 06:06 06:30 WBC 2.5 L D RBC 2.34 L Hgb 7.8 L Hct 22.2 L MCV 94.8 MCH 33.2 MCHC 35.0 RDW 17.3 H Plt Count 135 MPV 6.6 L Neutrophils % 70.3 Lymphocytes % 18.8 D Monocytes % 7.8 Eosinophils % 2.4 D Basophils % 0.7 D Retic Count Sodium Potassium Chloride Carbon Dioxide Anion Gap BUN Creatinine POC Glucometer 160 123 Random Glucose Hemoglobin A1c % Calcium Total Bilirubin Direct Bilirubin AST ALT Alkaline Phosphatase LD Total Total Protein Albumin CMV IgM Ab 12/13/17 12/13/17 12/13/17 06:30 06:30 06:30 WBC RBC Hgb Hct MCV MCH MCHC RDW Plt Count MPV Neutrophils % Lymphocytes % Monocytes % Eosinophils % Basophils % Retic Count 1.07 D Sodium 136 Potassium 4.5 Chloride 105 Carbon Dioxide 26 Anion Gap 5 L BUN 17 Creatinine 0.7 POC Glucometer Random Glucose 103 Hemoglobin A1c % 5.2 Calcium 7.5 L Total Bilirubin 0.6 D Direct Bilirubin 0.2 AST 16 ALT 12 Alkaline Phosphatase 66 LD Total Total Protein 6.0 L Albumin 3.1 L CMV IgM Ab 12/13/17 12/13/17 06:30 11:14 WBC RBC Hgb Hct MCV MCH MCHC RDW Plt Count MPV Neutrophils % Lymphocytes % Monocytes % Eosinophils % Basophils % Retic Count Sodium Potassium Chloride Carbon Dioxide Anion Gap BUN Creatinine POC Glucometer 146 Random Glucose Hemoglobin A1c % Calcium Total Bilirubin Direct Bilirubin AST ALT Alkaline Phosphatase LD Total Cancelled Total Protein Albumin CMV IgM Ab Active Medications Generic Name Dose Route Start Last Admin Trade Name Freq PRN Reason Stop Dose Admin Acetaminophen 650 mg 12/11/17 08:10 12/11/17 16:32 Tylenol - PO 650 mg Q4H PRN Administration FEVER Amlodipine Besylate 10 mg 12/10/17 12:00 12/13/17 10:30 Norvasc - PO 10 mg DAILY NEENA Administration Guaifenesin 10 ml 12/10/17 17:40 12/12/17 19:08 Guaifenesin Dm Syrup PO 10 ml Q8H PRN Administration COUGH Ceftriaxone Sodium 2 gm/ 100 mls @ 100 mls/hr 12/12/17 10:15 12/13/17 10:30 Dextrose IVPB 100 mls/hr DAILY NEENA Administration Vancomycin HCl 1,000 mg/ 250 mls @ 166.667 mls/hr 12/12/17 13:00 12/13/17 00: 12 Dextrose IVPB 166.667 mls/hr BID@0100,1300 NEENA Administration Insulin Aspart 1 vial 12/07/17 22:00 12/13/17 11:28 Novolog Vial Sliding Scale - SQ Not Given ACHS NEENA Protocol ASSESSMENT/PLAN: Pt is a 67y/o F with PMH HTN, DM who presented to ED with abdominal pain and has been found to have cholelithiasis, and hemolytic anemia with neutropenia. 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
[2017-12-13] MEDS ORDERED: BISACODYL 5 MG TABLET.DR (FP) PO ONE ×2 (15:00→17:15)
[2017-12-13] MEDS ORDERED: PEG 3350/NA SULF BICARB CL/KCL 4000 ML SOLN.RECON PO ONE (15:00)
--- NOTE | 2017-12-13 15:01 | PN ---
Progress Note, Physician History of Present Illness: Asymptomatic. Sitting in chair. Comfortable. - Current Medication List Current Medications: Active Medications Acetaminophen (Tylenol -) 650 mg PO Q4H PRN PRN Reason: FEVER Last Admin: 12/11/17 16:32 Dose: 650 mg Amlodipine Besylate (Norvasc -) 10 mg PO DAILY [facility] Last Admin: 12/13/17 10:30 Dose: 10 mg Guaifenesin (Guaifenesin Dm Syrup) 10 ml PO Q8H PRN PRN Reason: COUGH Last Admin: 12/12/17 19:08 Dose: 10 ml Ceftriaxone Sodium 2 gm/ (Dextrose) 100 mls @ 100 mls/hr IVPB DAILY [facility] Last Admin: 12/13/17 10:30 Dose: 100 mls/hr Vancomycin HCl 1,000 mg/ (Dextrose) 250 mls @ 166.667 mls/hr IVPB BID@0100, 1300 [facility] Last Admin: 12/13/17 13:00 Dose: 166.667 mls/hr Insulin Aspart (Novolog Vial Sliding Scale -) 1 vial SQ ACHS [facility] PRN Reason: Protocol Last Admin: 12/13/17 11:28 Dose: Not Given - Objective Vital Signs: Vital Signs Temperature 97.8 F 12/13/17 10:00 Pulse Rate 72 12/13/17 10:00 Respiratory Rate 14 12/13/17 10:00 Blood Pressure 142/52 12/13/17 10:00 O2 Sat by Pulse Oximetry (%) 98 12/13/17 09:00 Constitutional: Yes: No Distress, Calm Eyes: Yes: Conjunctiva Clear HENT: Yes: Atraumatic Neck: Yes: Supple Cardiovascular: No: Bradycardia, Tachycardia Respiratory: Yes: Regular Gastrointestinal: Yes: Soft. No: Distention, Melena, Rectal Bleeding Labs: CBC, BMP 12/13/17 06:30 12/13/17 06:30 INR, PTT INR 0.89 (0.82-1.09) 12/08/17 12:15 Fibrinogen 363.0 mg/dL (238-498) 12/07/17 21:10 Laboratory Last Values WBC 2.5 K/mm3 (4.0-10.0) L D 12/13/17 06:30 RBC 2.34 M/mm3 (3.60-5.2) L 12/13/17 06:30 Hgb 7.8 GM/dL (10.7-15.3) L 12/13/17 06:30 Hct 22.2 % (32.4-45.2) L 12/13/17 06:30 MCV 94.8 fl (80-96) 12/13/17 06:30 MCH 33.2 pg (25.7-33.7) 12/13/17 06:30 MCHC 35.0 g/dl (32.0-36.0) 12/13/17 06:30 RDW 17.3 % (11.6-15.6) H 12/13/17 06:30 Plt Count 135 K/MM3 (134-434) 12/13/17 06:30 MPV 6.6 fl (7.5-11.1) L 12/13/17 06:30 Neutrophils % 70.3 % (42.8-82.8) 12/13/17 06:30 Neutrophils % (Manual) No Result Required. 12/10/17 06:52 Lymphocytes % 18.8 % (8-40) D 12/13/17 06:30 Monocytes % 7.8 % (3.8-10.2) 12/13/17 06:30 Eosinophils % 2.4 % (0-4.5) D 12/13/17 06:30 Basophils % 0.7 % (0-2.0) D 12/13/17 06:30 Platelet Estimate Adequate 12/07/17 15:47 Anisocytosis 1+ 12/07/17 15:47 Retic Count 1.07 % (0.5-1.5) D 12/13/17 06:30 Haptoglobin 10 mg/dL (34-200) L 12/07/17 18:59 PT with INR 10.10 SEC (9.98-11.88) 12/08/17 12:15 INR 0.89 (0.82-1.09) 12/08/17 12:15 PTT (Actin FS) 26.5 SECONDS (26.9-34.4) L 12/08/17 12:15 Fibrinogen 363.0 mg/dL (238-498) 12/07/17 21:10 Sodium 136 mmol/L (136-145) 12/13/17 06:30 Potassium 4.5 mmol/L (3.5-5.1) 12/13/17 06:30 Chloride 105 mmol/L (98-107) 12/13/17 06:30 Carbon Dioxide 26 mmol/L (21-32) 12/13/17 06:30 Anion Gap 5 (8-16) L 12/13/17 06:30 BUN 17 mg/dL (7-18) 12/13/17 06:30 Creatinine 0.7 mg/dL (0.55-1.02) 12/13/17 06:30 Creat Clearance w eGFR > 60 (>60) 12/11/17 06:00 POC Glucometer 146 UNITS (80-120) 12/13/17 11:14 Random Glucose 103 mg/dL (74-106) 12/13/17 06:30 Hemoglobin A1c % 5.2 % (4.8-6.0) 12/13/17 06:30 Calcium 7.5 mg/dL (8.5-10.1) L 12/13/17 06:30 Phosphorus 4.2 mg/dL (2.5-4.9) 12/08/17 12:15 Magnesium 2.8 mg/dL (1.8-2.4) H 12/08/17 12:15 Iron 34 ug/dL (27-139) 12/07/17 16:43 TIBC 247 ug/dL (250-450) L 12/07/17 16:43 Iron Saturation 14 % (15-55) L 12/07/17 16:43 Ferritin 25.638 ng/ml (6.9-282.5) 12/07/17 16:43 Total Bilirubin 0.6 mg/dL (0.2-1.0) D 12/13/17 06:30 Direct Bilirubin 0.2 mg/dL (0.0-0.2) 12/13/17 06:30 GGT 17 U/L (5-85) 12/07/17 18:59 AST 16 U/L (15-37) 12/13/17 06:30 ALT 12 U/L (12-78) 12/13/17 06:30 Alkaline Phosphatase 66 U/L (45-117) 12/13/17 06:30 LD Total 246 U/L (84-246) 12/13/17 06:30 C-Reactive Protein 2.1 MG/DL (0.00-0.3) H 12/09/17 06:35 Total Protein 6.0 g/dl (6.4-8.2) L 12/13/17 06:30 Albumin 3.1 g/dl (3.4-5.0) L 12/13/17 06:30 Beta Globulins 0.9 g/dL (0.7-1.3) 12/08/17 12:15 Total Amylase 46 U/L (25-115) 12/09/17 06:35 Lipase 101 U/L (73-393) 12/09/17 06:35 Vitamin B12 863 pg/ml (180-914) 12/08/17 12:15 Folate 2619 ng/mL (>498) 12/07/17 21:10 Folate Hemolysate 366.6 ng/mL (Not Estab.) 12/07/17 21:10 TSH 0.59 uIU/ml (0.358-3.74) 12/08/17 12:15 Urine Color Yellow 12/07/17 15:47 Urine Appearance Clear 12/07/17 15:47 Urine pH 7.0 (5.0-8.0) 12/07/17 15:47 Ur Specific Flushing 1.019 (1.001-1.035) 12/07/17 15:47 Urine Protein 1+ (NEGATIVE) H 12/07/17 15:47 Urine Glucose (UA) Negative (NEGATIVE) 12/07/17 15:47 Urine Ketones Negative (NEGATIVE) 12/07/17 15:47 Urine Blood Negative (NEGATIVE) 12/07/17 15:47 Urine Nitrite Negative (NEGATIVE) 12/07/17 15:47 Urine Bilirubin Negative (<2.0 mg/dL) 12/07/17 15:47 Urine Urobilinogen 4.0 e.u/dl mg/dL (0.2-1.0) H 12/07/17 15:47 Ur Leukocyte Esterase Negative (NEGATIVE) 12/07/17 15:47 Urine WBC (Auto) 1 /hpf (3-5) 12/07/17 15:47 Urine RBC (Auto) <1 /hpf (0-3) 12/07/17 15:47 Ur Epithelial Cells Rare /HPF (FEW) 12/07/17 15:47 Urine Bacteria Rare /hpf (NONE SEEN) 12/07/17 15:47 Hyaline Casts 4 /lpf 12/07/17 15:47 Urine Mucus Rare 12/07/17 15:47 Stool Occult Blood Negative (NEGATIVE) 12/10/17 10:00 IgG 872 mg/dL (700-1600) 12/09/17 06:35 IgA 142 mg/dL (87-352) 12/09/17 06:35 IgM 71 mg/dL (26-217) 12/09/17 06:35 DEBORAH & SPEP Interp (.) 12/08/17 12:15 Total Protein (DEBORAH) 6.3 g/dL (6.0-8.5) 12/08/17 12:15 Albumin (DEBORAH) 3.4 g/dL (2.9-4.4) 12/08/17 12:15 Albumin/Globulin (DEBORAH) 1.2 (0.7-1.7) 12/08/17 12:15 [id number] DEBORAH 0.3 g/dL (0.0-0.4) 12/08/17 12:15 Kaxqv-8-[id number] DEBORAH 0.6 g/dL (0.4-1.0) 12/08/17 12:15 Gamma Globulins (DEBORAH) 1.2 g/dL (0.4-1.8) 12/08/17 12:15 DEBORAH M-Hunter Not observed g/dL (Not Observed) 12/08/17 12:15 DEBORAH Comments (.) 12/08/17 12:15 IEP IgG 976 mg/dL (700-1600) 12/08/17 12:15 IEP IgA 155 mg/dL (87-352) 12/08/17 12:15 IEP IgM 75 mg/dL (26-217) 12/08/17 12:15 Cold Agglutinins Negative TITER (Neg <1:32) 12/08/17 12:15 ANDREA Screen Negative (.) 12/08/17 12:15 CMV IgM Ab < 30.0 AU/mL (0.0-29.9) 12/12/17 06:20 Hepatitis A IgM Ab Negative (Negative) 12/07/17 18:59 Hep Bs Antigen Negative (Negative) 12/07/17 18:59 Hep B Core IgM Ab Negative (Negative) 12/07/17 18:59 Hepatitis C Antibody <0.1 s/co ratio (0.0-0.9) 12/07/17 18:59 HIV 1&2 Antibody Screen Negative 12/07/17 18:59 HIV P24 Antigen Negative 12/07/17 18:59 Blood Type O POSITIVE 12/08/17 12:15 Antibody Screen Negative 12/08/17 12:15 Direct Antiglob Test Positive (NEGATIVE) H 12/08/17 12:15 Crossmatch See Detail 12/08/17 12:15 - ....Imaging Cat Scan: Report Reviewed Problem List - Problems (1) Abnormal CT of the abdomen Code(s): R93.5 - ABN FINDINGS ON DX IMAGING OF ABD REGIONS, INC RETROPERITON (2) Abdominal pain Code(s): R10.9 - UNSPECIFIED ABDOMINAL PAIN Qualifiers: Abdominal location: generalized Qualified Code(s): R10.84 - Generalized abdominal pain (3) Autoimmune hemolytic anemia Code(s): D59.1 - OTHER AUTOIMMUNE HEMOLYTIC ANEMIAS Assessment/Plan R/o colon cancer. Colonoscopy and prep discussed with pt's sister few days ago. Plan colonoscopy tomorrow.
--- NOTE | 2017-12-13 15:16 | PN ---
Teaching Attending Note Name of Resident: López Lyles ATTENDING PHYSICIAN STATEMENT I saw and evaluated the patient. I reviewed the resident's note and discussed the case with the resident. I agree with the resident's findings and plan as documented. SUBJECTIVE: OBJECTIVE: ASSESSMENT AND PLAN: Pneumococcal bacteremia/ septicemia Hemolytic anemia Clinically improved Continue ceftriaxone D/C vancomycin
--- NOTE | 2017-12-13 15:18 | PN ---
Teaching Attending Note Name of Resident: Jacob Paul ATTENDING PHYSICIAN STATEMENT I saw and evaluated the patient. I reviewed the resident's note and discussed the case with the resident. I agree with the resident's findings and plan as documented. SUBJECTIVE: no fever or chills. has no pain , denies any sore throat today. dry cough OBJECTIVE: NAD HEENT: MMM , unable to visualize the oropharynx ( no exudate per interns ) , L tongue base vascular-like lesion. non tender . no LAP in neck CV: RRR Lungs: CTAB Abd: soft, NT, ND ,nl BS ASSESSMENT AND PLAN: 67 y/o lady with h/o HTN and Dm who presented with anemia and leukopenia from PCP 's office 1- Acute hemolytic anemia : could be due to infection VS autoimmune - slightly lower but stable HB after transfusion . Monitor 2- Leukopenia: ? infection , recovering now ANC 1700 3- Strep pneumo BActeremia: unclear source.no PNA on CT, no exudate in throat. - cont ceftriaxone . sensitivity reviewed - ID input appreciated - follow repeat blood cx - no vegetations on ECho 4- UTI : strep viridance 5- HTN : cont norvasc 6- sigmoid colon irregularity: Colonoscopy tomorrow 7-h/o DM : diagnosed in [facility]. Fel[facility] 5.2 . dyer snot need any treatment . dc SSI . dispo: HLOC
[2017-12-14 00:08] LABS: PARV B19 IGG 7.3 index (0.0-0.8); PARV B19 IGM 0.2 index (0.0-0.8)
[2017-12-14 08:26] LABS: HEMATOCRIT 21.4 % (32.4-45.2); HEMOGLOBIN 7.5 GM/dL (10.7-15.3); MCH 33.2 pg (25.7-33.7); MCHC 35.2 g/dl (32.0-36.0); MEAN CELL VOLUME 94.4 fl (80-96); MEAN PLT VOLUME 6.5 fl (7.5-11.1); PLATELET COUNT 135 K/MM3 (134-434); RBC 2.27 M/mm3 (3.60-5.2); RDW 17.2 % (11.6-15.6)
[2017-12-14 08:31] LABS: ANION GAP 6 (8-16); BILIRUBIN,TOTAL 0.5 mg/dL (0.2-1.0); BLOOD UREA NITROGEN 16 mg/dL (7-18); CALCIUM 7.8 mg/dL (8.5-10.1); CHLORIDE 109 mmol/L (98-107); CO2 25 mmol/L (21-32); CREATININE 0.7 mg/dL (0.55-1.02); GLUCOSE,RANDOM 101 mg/dL (74-106); POTASSIUM 4.2 mmol/L (3.5-5.1); SGOT/AST 16 U/L (15-37); SGPT/ALT 14 U/L (12-78); SODIUM 140 mmol/L (136-145); TOT PROT 5.7 g/dl (6.4-8.2)
[2017-12-14 08:32] LABS: ALK PHOS 73 U/L (45-117)
[2017-12-14 08:47] LABS: WHITE BLOOD COUNT 1.6 K/mm3 (4.0-10.0)
[2017-12-14 09:35] LABS: ANISOCYTOSIS 1+; PLATELET ESTIMATE DECREASED
[2017-12-14] MEDS ORDERED: INSULIN (NOVOLOG) ASPART 100 UNITS/ML 10ML VIAL ONE (09:52)
[2017-12-14] MEDS ORDERED: DEXTROSE 5%-WATER 100 ML IVPB ONE (09:52)
[2017-12-14] MEDS: amLODIPine BESYLATE 10 MG TABLET (FP) PO SCH (10:13)
[2017-12-14] MEDS: CEFTRIAXONE 2 GM in DEXTROSE 5%-WATER 100 ML IVPB SCH (10:13)
[2017-12-14] MEDS: INSULIN SLIDING SCALE (NOVOLOG) 1 VIAL SQ SCH ×2 (10:16→22:02)
[2017-12-14] MEDS ORDERED: LIDOCAINE HCL/PF 2% SDV 5ML VIAL ONE (11:45)
[2017-12-14] MEDS ORDERED: PROPOFOL 20 ML ONE (11:46)
--- NOTE | 2017-12-14 12:18 | PN ---
Progress Note, Physician History of Present Illness: Afebrile on Rocephin and Vanco, cultures pending, neutropenia resolved, colonscopy revealed circumferential, nearly obstructing, friable, bleeding on contact mass found at 30 cm, extensively biopsied, distal end tattooed. - Current Medication List Current Medications: Active Medications Acetaminophen (Tylenol -) 650 mg PO Q4H PRN PRN Reason: FEVER Last Admin: 12/11/17 16:32 Dose: 650 mg Amlodipine Besylate (Norvasc -) 10 mg PO DAILY [facility] Last Admin: 12/14/17 10:13 Dose: Not Given Guaifenesin (Guaifenesin Dm Syrup) 10 ml PO Q8H PRN PRN Reason: COUGH Last Admin: 12/12/17 19:08 Dose: 10 ml Ceftriaxone Sodium 2 gm/ (Dextrose) 100 mls @ 100 mls/hr IVPB DAILY [facility] Last Admin: 12/14/17 10:13 Dose: 100 mls/hr Insulin Aspart (Novolog Vial Sliding Scale -) 1 vial SQ BID [facility] PRN Reason: Protocol Last Admin: 12/14/17 10:16 Dose: Not Given - Objective Vital Signs: Vital Signs Temperature 97.7 F 12/14/17 10:06 Pulse Rate 65 12/14/17 10:06 Respiratory Rate 16 12/14/17 10:06 Blood Pressure 142/64 12/14/17 10:06 O2 Sat by Pulse Oximetry (%) 99 12/14/17 06:07 Constitutional: Yes: No Distress, Calm Neck: Yes: Supple Cardiovascular: Yes: Regular Rate and Rhythm Respiratory: Yes: Regular, CTA Bilaterally Gastrointestinal: Yes: Soft, Hypoactive Bowel Sounds Edema: No Labs: CBC, BMP 12/14/17 06:30 12/14/17 06:40 INR, PTT INR 0.89 (0.82-1.09) 12/08/17 12:15 Fibrinogen 363.0 mg/dL (238-498) 12/07/17 21:10 Problem List - Problems (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 - OTHER AUTOIMMUNE HEMOLYTIC ANEMIAS (2) Hypertension Code(s): I10 - ESSENTIAL (PRIMARY) HYPERTENSION Qualifiers: Hypertension type: essential hypertension Qualified Code(s): I10 - Essential (primary) hypertension (3) Leukopenia Code(s): D72.819 - DECREASED WHITE BLOOD CELL COUNT, UNSPECIFIED Qualifiers: Leukopenia type: neutropenia (4) Indirect hyperbilirubinemia Code(s): E80.6 - OTHER DISORDERS OF BILIRUBIN METABOLISM (5) Bacteremia due to Streptococcus pneumoniae Code(s): R78.81 - BACTEREMIA (6) Colonic mass Code(s): K63.9 - DISEASE OF INTESTINE, UNSPECIFIED Assessment/Plan 12/11/2017 Echo: Normal biventricular size and fxn, abnormal LV compliance, mild MR, TR 1. Pneumococcal bacteremia 2. Autoimmune hemolytic anemia post transfusion PRBC 3. Jaundice secondary to AIHA 4. Neutropenia resolved 5. HTN 6. Type 2 DM 7. Colonic mass PLAN: 1. Follow up bone marrow biopsy and pathology results, staging studies 2. Empiric abx course per surveillance C&S 3. Continue on Norvasc 5 qd 4. Surgery consult L
--- NOTE | 2017-12-14 12:55 | PROC ---
Endoscopy Procedure Endoscopy procedure completed. Please see scanned procedure report. Circumferential, nearly obstructing, friable, bleeding on contact mass found at 30 cm, extensively biopsied, distal end tattooed. Unable to traverse lumen distal to the mass. Liquid diet. Avoid NSAIDs. Follow biopsy results. Oncology And surgical consultations. CEA and CT scan of the chest, abdomen and pelvis with contrast
--- NOTE | 2017-12-14 14:00 | PN ---
Physical Exam: SUBJECTIVE: Patient seen and examined WBC 1.6 today. Hb 7.5. Plt 135. 3 metamyelocytes, polychromasia, Anisocytosis, Microcytosis. OBJECTIVE: Vital Signs Period Temp Pulse Resp BP Sys/Rodrigues Pulse Ox Last 24 Hr 97.7 F-98.4 F 58-82 16-20 119-146/44-72 99-100 GENERAL: The patient is awake, alert, and fully oriented, in no acute distress. HEAD: Normal with no signs of trauma. EYES: PERRL, extraocular movements intact, sclera anicteric, conjunctiva clear. No ptosis. ENT: Ears normal, nares patent, oropharynx clear without exudates, moist mucous membranes. NECK: Trachea midline, full range of motion, supple. LUNGS: Breath sounds equal, clear to auscultation bilaterally, no wheezes, no crackles, no accessory muscle use. HEART: Regular rate and rhythm, S1, S2 without murmur, rub or gallop. ABDOMEN: Soft, nontender, nondistended, normoactive bowel sounds, no guarding, no rebound, no hepatosplenomegaly, no masses. EXTREMITIES: 2+ pulses, warm, well-perfused, no edema. NEUROLOGICAL: Cranial nerves II through XII grossly intact. Normal speech, gait not observed. PSYCH: Normal mood, normal affect. SKIN: Warm, dry, normal turgor, no rashes or lesions noted Laboratory Results - last 24 hr 12/12/17 12/13/17 12/13/17 06:20 06:30 17:21 WBC RBC Hgb Hct MCV MCH MCHC RDW Plt Count MPV Neutrophils % Neutrophils % (Manual) Band Neutrophils % Lymphocytes % Lymphocytes % (Manual) Monocytes % (Manual) Eosinophils % (Manual) Basophils % (Manual) Myelocytes % (Man) Promyelocytes % (Man) Blast Cells % (Manual) Nucleated RBC % Metamyelocytes Hypochromia Platelet Estimate Polychromasia Anisocytosis Microcytosis Sodium Potassium Chloride Carbon Dioxide Anion Gap BUN Creatinine Creat Clearance w eGFR POC Glucometer 194 Random Glucose Calcium Total Bilirubin AST ALT Alkaline Phosphatase LD Total 246 Total Protein Albumin Parvovirus B19 IgG Ab 7.3 H Parvovirus B19 IgM Ab 0.2 12/13/17 12/14/17 12/14/17 21:32 05:30 06:30 WBC 1.6 L* D RBC 2.27 L Hgb 7.5 L Hct 21.4 L MCV 94.4 MCH 33.2 MCHC 35.2 RDW 17.2 H Plt Count 135 MPV 6.5 L Neutrophils % No Result Required. Neutrophils % (Manual) 49.5 Band Neutrophils % 0.0 Lymphocytes % No Result Required. Lymphocytes % (Manual) 32.7 Monocytes % (Manual) 11 H Eosinophils % (Manual) 2.9 Basophils % (Manual) 0.0 Myelocytes % (Man) 0 Promyelocytes % (Man) 0 Blast Cells % (Manual) 0 Nucleated RBC % 1 H Metamyelocytes 3 H Hypochromia 1+ Platelet Estimate Decreased Polychromasia 1+ Anisocytosis 1+ Microcytosis 1+ Sodium Potassium Chloride Carbon Dioxide Anion Gap BUN Creatinine Creat Clearance w eGFR POC Glucometer 201 113 Random Glucose Calcium Total Bilirubin AST ALT Alkaline Phosphatase LD Total Total Protein Albumin Parvovirus B19 IgG Ab Parvovirus B19 IgM Ab 12/14/17 12/14/17 06:40 10:15 WBC RBC Hgb Hct MCV MCH MCHC RDW Plt Count MPV Neutrophils % Neutrophils % (Manual) Band Neutrophils % Lymphocytes % Lymphocytes % (Manual) Monocytes % (Manual) Eosinophils % (Manual) Basophils % (Manual) Myelocytes % (Man) Promyelocytes % (Man) Blast Cells % (Manual) Nucleated RBC % Metamyelocytes Hypochromia Platelet Estimate Polychromasia Anisocytosis Microcytosis Sodium 140 Potassium 4.2 Chloride 109 H Carbon Dioxide 25 Anion Gap 6 L BUN 16 Creatinine 0.7 Creat Clearance w eGFR > 60 POC Glucometer 120 Random Glucose 101 Calcium 7.8 L Total Bilirubin 0.5 AST 16 ALT 14 Alkaline Phosphatase 73 LD Total Total Protein 5.7 L Albumin 3.0 L Parvovirus B19 IgG Ab Parvovirus B19 IgM Ab Active Medications Generic Name Dose Route Start Last Admin Trade Name Freq PRN Reason Stop Dose Admin Acetaminophen 650 mg 12/11/17 08:10 12/11/17 16:32 Tylenol - PO 650 mg Q4H PRN Administration FEVER Amlodipine Besylate 10 mg 12/10/17 12:00 12/14/17 10:13 Norvasc - PO Not Given DAILY NEENA Guaifenesin 10 ml 12/10/17 17:40 12/12/17 19:08 Guaifenesin Dm Syrup PO 10 ml Q8H PRN Administration COUGH Ceftriaxone Sodium 2 gm/ 100 mls @ 100 mls/hr 12/12/17 10:15 12/14/17 10:13 Dextrose IVPB 100 mls/hr DAILY NEENA Administration Insulin Aspart 1 vial 12/13/17 22:00 12/14/17 10:16 Novolog Vial Sliding Scale - SQ Not Given BID NEENA Protocol ASSESSMENT/PLAN: Pt is a 67y/o F with PMH HTN, DM who presented to ED with abdominal pain and has been found to have cholelithiasis, and hemolytic anemia with neutropenia. #Fevers -Pt found to have colonic mass on colonoscopy. Biopsy sent. -afebrile -recurrent neutropenia. 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
--- NOTE | 2017-12-14 14:10 | PN ---
Physical Exam: SUBJECTIVE: Patient seen and examined No acute events overnight. Patient scheduled for colonoscopy today. OBJECTIVE: Vital Signs Period Temp Pulse Resp BP Sys/Rodrigues Pulse Ox Last 24 Hr 97.7 F-98.4 F 58-82 16-20 119-146/44-72 99-100 GENERAL: The patient is awake, alert, and fully oriented, in no acute distress. +Jaundice HEAD: Normal with no signs of trauma. EYES: Extraocular movements intact, scleral icterus, conjunctiva clear. No ptosis. ENT: vascular lesion in left base of tongue, no pharyngeal erythema, mild tonsillar enlargement NECK: Trachea midline, full range of motion, supple. LUNGS: Breath sounds equal, clear to auscultation bilaterally, no wheezes, no crackles, no accessory muscle use. HEART: Tachycardic,Regular rhythm, S1, S2 without murmur, rub or gallop. ABDOMEN: Soft, nontender, nondistended, normoactive bowel sounds, no guarding, no rebound, no hepatosplenomegaly, no masses. EXTREMITIES: 2+ pulses, warm, well-perfused, no edema. Laboratory Results - last 24 hr 12/12/17 12/13/17 12/13/17 06:20 17:21 21:32 WBC RBC Hgb Hct MCV MCH MCHC RDW Plt Count MPV Neutrophils % Neutrophils % (Manual) Band Neutrophils % Lymphocytes % Lymphocytes % (Manual) Monocytes % (Manual) Eosinophils % (Manual) Basophils % (Manual) Myelocytes % (Man) Promyelocytes % (Man) Blast Cells % (Manual) Nucleated RBC % Metamyelocytes Hypochromia Platelet Estimate Polychromasia Anisocytosis Microcytosis Sodium Potassium Chloride Carbon Dioxide Anion Gap BUN Creatinine Creat Clearance w eGFR POC Glucometer 194 201 Random Glucose Calcium Total Bilirubin AST ALT Alkaline Phosphatase Total Protein Albumin Parvovirus B19 IgG Ab 7.3 H Parvovirus B19 IgM Ab 0.2 12/14/17 12/14/17 12/14/17 05:30 06:30 06:40 WBC 1.6 L* D RBC 2.27 L Hgb 7.5 L Hct 21.4 L MCV 94.4 MCH 33.2 MCHC 35.2 RDW 17.2 H Plt Count 135 MPV 6.5 L Neutrophils % No Result Required. Neutrophils % (Manual) 49.5 Band Neutrophils % 0.0 Lymphocytes % No Result Required. Lymphocytes % (Manual) 32.7 Monocytes % (Manual) 11 H Eosinophils % (Manual) 2.9 Basophils % (Manual) 0.0 Myelocytes % (Man) 0 Promyelocytes % (Man) 0 Blast Cells % (Manual) 0 Nucleated RBC % 1 H Metamyelocytes 3 H Hypochromia 1+ Platelet Estimate Decreased Polychromasia 1+ Anisocytosis 1+ Microcytosis 1+ Sodium 140 Potassium 4.2 Chloride 109 H Carbon Dioxide 25 Anion Gap 6 L BUN 16 Creatinine 0.7 Creat Clearance w eGFR > 60 POC Glucometer 113 Random Glucose 101 Calcium 7.8 L Total Bilirubin 0.5 AST 16 ALT 14 Alkaline Phosphatase 73 Total Protein 5.7 L Albumin 3.0 L Parvovirus B19 IgG Ab Parvovirus B19 IgM Ab 12/14/17 10:15 WBC RBC Hgb Hct MCV MCH MCHC RDW Plt Count MPV Neutrophils % Neutrophils % (Manual) Band Neutrophils % Lymphocytes % Lymphocytes % (Manual) Monocytes % (Manual) Eosinophils % (Manual) Basophils % (Manual) Myelocytes % (Man) Promyelocytes % (Man) Blast Cells % (Manual) Nucleated RBC % Metamyelocytes Hypochromia Platelet Estimate Polychromasia Anisocytosis Microcytosis Sodium Potassium Chloride Carbon Dioxide Anion Gap BUN Creatinine Creat Clearance w eGFR POC Glucometer 120 Random Glucose Calcium Total Bilirubin AST ALT Alkaline Phosphatase Total Protein Albumin Parvovirus B19 IgG Ab Parvovirus B19 IgM Ab Active Medications Generic Name Dose Route Start Last Admin Trade Name Freq PRN Reason Stop Dose Admin Acetaminophen 650 mg 12/11/17 08:10 12/11/17 16:32 Tylenol - PO 650 mg Q4H PRN Administration FEVER Amlodipine Besylate 10 mg 12/10/17 12:00 12/14/17 10:13 Norvasc - PO Not Given DAILY NEENA Guaifenesin 10 ml 12/10/17 17:40 12/12/17 19:08 Guaifenesin Dm Syrup PO 10 ml Q8H PRN Administration COUGH Ceftriaxone Sodium 2 gm/ 100 mls @ 100 mls/hr 12/12/17 10:15 12/14/17 10:13 Dextrose IVPB 100 mls/hr DAILY NEENA Administration Insulin Aspart 1 vial 12/13/17 22:00 12/14/17 10:16 Novolog Vial Sliding Scale - SQ Not Given BID NEENA Protocol ASSESSMENT/PLAN: 67 year old F with pmh of HTN and DM presented from PCP's office with anemia and leukopenia #Strep Pneumo bacteremia and Strep viridans urine culture -Continue Ceftriaxone 2 g daily -Repeat blood cultures drawn on 12/12 -ID consulted -Tylenol for fever #Hemolytic Anemia and Leukopenia, resolving -AUNDREA+ -pending bone marrow biopsy results -CT chest/abd/pelvis concerning for sigmoid irregularity -Parvovirus IGG + -Neutropenic precautions -GI Consult -Heme Consult #Sigmoid mass on colonoscopy -Possible colon cancer -Biopsy pending -Heme/onc consulted #Cardiomegaly -Echocardiogram impaired lv relaxation, EF 70%, LV size/thickness/fxn -Cardiology consulted #HTN -norvasc 10 po daily -monitor bp #Hyperglycemia, no longer diabetic -Bgm bid -iss bid #FEN/GI. PPx -No IVF -wnl -Full liquid -scd's Visit type - Emergency Visit Emergency Visit: Yes ED Registration Date: 12/07/17 Care time: The patient presented to the Emergency Department on the above date and was hospitalized for further evaluation of their emergent condition. - New Patient This patient is new to me today: No - Critical Care Critical Care patient: No
--- NOTE | 2017-12-14 15:47 | PN ---
Teaching Attending Note Name of Resident: López Lyles ATTENDING PHYSICIAN STATEMENT I saw and evaluated the patient. I reviewed the resident's note and discussed the case with the resident. I agree with the resident's findings and plan as documented. SUBJECTIVE: no fevers OBJECTIVE: Vital Signs Period Temp Pulse Resp BP Sys/Rodrigues Pulse Ox Last 24 Hr 97.7 F-98.4 F 58-82 16-20 119-146/44-72 99-100 cor-rrr lungs clear abd soft,nt ext no edema CBC, BMP 12/14/17 06:30 12/14/17 06:40 Microbiology 12/12/17 10:07 Blood - Peripheral Venous Blood Culture - Preliminary NO GROWTH OBTAINED AFTER 48 HOURS, INCUBATION TO CONTINUE FOR 3 DAYS. 12/12/17 09:10 Blood - Peripheral Venous Blood Culture - Preliminary NO GROWTH OBTAINED AFTER 48 HOURS, INCUBATION TO CONTINUE FOR 3 DAYS. 12/11/17 13:12 Serum Mycoplasma Antibody - Final 12/11/17 06:45 Blood - Peripheral Venous Blood Culture - Final Streptococcus Pneumoniae 12/11/17 06:40 Blood - Peripheral Venous Blood Culture - Final Streptococcus Pneumoniae 12/11/17 06:55 Urine - Urine Clean Catch Urine Culture - Final Streptococcus Viridans Diphtheroid/Corynebacterium ASSESSMENT AND PLAN: pnemococcal bacteremia- continue rocephin leukopenia- ?etiology, await BM biiopsy hemolytic anemia
--- NOTE | 2017-12-14 17:26 | PATH ---
Surgical Pathology Report Patient Name: TROY MACIAS Med. Rec. #: [id number] /Age/Gender: 1950 (Age: 67) / F Account: [id number] Location: [facility] MED/SURG Taken: 12/09/2017 Received: 12/10/2017 Reported: 12/14/2017 Physicians: Anibal Peralta M.D. Specimen(s) Received A: BONE MARROW BIOPSY B: BONE MARROW ASPIRATION SMEARS 3 SLIDES C: BONE MARROW BLOOD 2 GREEN 2 LAVENDER Clinical History New hemolytic anemia, neutropenia Final Diagnosis A & B. BONE MARROW, ASPIRATE, CLOT AND CORE BIOPSY: MILDLY HYPERCELLULAR MARROW (50-60%) WITH TRILINEAGE HEMATOPOIESIS AND RELATIVE ERYTHROID HYPERPLASIA. LEFT-SHIFTED MYELOID MATURATION WITHOUT INCREASED BLASTS. NO EVIDENCE OF LYMPHOMA. SEE COMMENT. Comment: Flow cytometric analysis of the bone marrow showed no atypical findings. FISH studies for abnormalities commonly seen in myelodysplasia were negative. The bone marrow findings are consistent with the stated history of hemolytic anemia. Please correlate with clinical, cytogenetic, and other laboratory findings. This case was sent to Dr. Timmy Deshpande from [facility] [place], [place] ([id number]) the diagnosis above reflects his opinion. Morphology Aspirate Smear: Aspirate smear morphology from flow preparation due to suboptimal aspirate from client. Cellularity: Spiculate and adequate. M:E Ratio: Decreased. Myeloid Precursors: Relatively decreased with left-shifted maturation. There are no increased blasts. Erythroid Precursors: Relatively increased with progressive maturation. There is very mild dyspoiesis in the form of nuclear contour irregularity, representing less than 10% of the erythroid precursors. Megakaryocytes: Normal. Lymphoid Cells: Mostly small and mature. Plasma Cells: Rare, mature-appearing. Iron: Storage iron appears to be decreased in rare spicules from flow preparation. No significant numbers of ring sideroblasts are seen. Core: Consists of cortical bone, trabecular bone, and cellular marrow space. The cellularity is approximately 50-60%. There is trilineage hematopoiesis with a relative erythroid hyperplasia. Myeloid and erythroid elements show maturation. Scattered morphologically normal megakaryocytes are seen. No lymphoid aggregates are identified. Immunohistochemical stains are performed with appropriate controls. A stain for CD3 highlights scattered small T-cells. Stains for CD20 and PAX-5 highlight infrequent scattered small B-cells. A stain for CD61 highlights adequate numbers of dispersed megakaryocytes. A stain for CD34 shows no increased blasts. Clot: Consists of scattered islands of hematopoietic precursors. The particles appear approximately normocellular to mildly hypercellular for age. There is trilineage hematopoiesis with a relative erythroid hyperplasia. Myeloid and erythroid elements show maturation. Scattered morphologically normal megakaryocytes are seen. C. COMPREHENSIVE FLOW CYTOMETRY performed and interpreted at [facility], [place], [place] ([id number]) INTERPRETATION: No atypical flow cytometric findings seen. MYELODYSPLASIA FISH Panel performed and interpreted at [facility] in [place], [place] ([id number]) shows the following. INTERPRETATION: No evidence of deletion 5q or monosomy 5 is present. No evidence of deletion 7q or monosomy 7 is present. No evidence of trisomy 8 (+8) is present. No evidence of deletion 13q14.2 is present. No evidence of a rearrangement of 11q23. No evidence of a deletion of the p53 (17p13) locus. No evidence of deletion 20q12 is present. See [facility] reports for details ([id number], [id number], [id number]). Cytogenetics pending and will be reported separately. Electronically Signed Camille Emmanuel M.D. Addendum Reported: 12/19/2017 Addendum Diagnosis CYTOGENETIC KARYOTYPE ANALYSIS performed and interpreted at [facility] ([id number]) shows the following: RESULTS: 46,XX [20] INTERPRETATION: Normal Karyotype Within the limits of the cytogenetic methods, the chromosomes had normal G-banding patterns with no evidence of an acquired clonal numerical or structural abnormality. This normal result does not rule out a neoplasm. Subtle rearrangements or the presence of an aberrant clone in a low proportion of cells cannot be ruled out. Correlation with other clinical and hematologic data is suggested. Analysis was performed on cells from unstimulated tissue cultures. See [facility] report for additional details ([id number]). Camille Emmanuel M.D. Gross Description A. Received in formalin, labeled with the patient's name and indicated on the requisition to be bone marrow biopsy, is a 1 cm in length x 0.2 cm in diameter zaragoza, cylindrical portion of bone. Also received within the same container is a 2.5 x 2.0 x 0.9 cm red-brown blood clot. The specimen is entirely submitted in 2 cassettes as follows: 1-bone, following decalcification; 2-clot B. Received are 3 bone marrow aspiration smear slides. C. Received are 2 green top tubes and 2 lavender top tubes of bone marrow blood which are sent to [facility]. 12/10/2017 [facility]12/10/2017
--- NOTE | 2017-12-14 18:21 | PN ---
Teaching Attending Note Name of Resident: Jacob Paul ATTENDING PHYSICIAN STATEMENT I saw and evaluated the patient. I reviewed the resident's note and discussed the case with the resident. I agree with the resident's findings and plan as documented. SUBJECTIVE: no fever or chills. has no abd pain . dry eyes OBJECTIVE: NAD HEENT: MMM , Lungs: CTAB Abd: soft, NT, ND ,nl BS ext: no edema ASSESSMENT AND PLAN: 67 y/o lady with h/o HTN and Dm who presented with anemia and leukopenia from PCP 's office 1- Acute hemolytic anemia : could be due to infection VS autoimmune . - parvovirus IgG + , igM neg. not sure of significance or relevance - stable hb 2- Leukopenia: ? infection 3- Strep pneumo BActeremia: unclear source.no PNA on CT, no exudate in throat. - cont ceftriaxone - follow repeat blood cx - no vegetations on ECho 4- UTI : strep viridance 5- HTN : cont norvasc 6- sigmoid colon mass, likely cancer . Colonoscopy reviewed. - follow bx. - no mets on C/A/P CT - surgical eval - onc on board 7-h/o DM : diagnosed in DR. bender A1c 5.2 dispo: HLOC
--- NOTE | 2017-12-14 20:57 | PN ---
Progress Note (short form) - Note Progress Note: Patient seen and examined no specific complaints Last Vital Signs Temp Pulse Resp BP Pulse Ox 97.9 F 67 18 141/70 100 12/14/17 17:18 12/14/17 17:18 12/14/17 20:32 12/14/17 17:18 12/14/17 20:32 Cor: RSR, No murmurs, No gallops Lungs: Clear to P&A Abd: Soft, Normal bowel sounds, No organomegaly Ext:No significant edema Abnormal Lab Results 12/12/17 12/14/17 12/14/17 06:20 06:30 06:40 WBC 1.6 L* D RBC 2.27 L Hgb 7.5 L Hct 21.4 L RDW 17.2 H MPV 6.5 L Monocytes % (Manual) 11 H Nucleated RBC % 1 H Metamyelocytes 3 H Chloride 109 H Anion Gap 6 L Calcium 7.8 L Total Protein 5.7 L Albumin 3.0 L Parvovirus B19 IgG Ab 7.3 H Active Medications Generic Name Dose Route Start Last Admin Trade Name Freq PRN Reason Stop Dose Admin Acetaminophen 650 mg 12/11/17 08:10 12/11/17 16:32 Tylenol - PO 650 mg Q4H PRN Administration FEVER Amlodipine Besylate 10 mg 12/10/17 12:00 12/14/17 10:13 Norvasc - PO Not Given DAILY NEENA Artificial Tears 1 drop 12/14/17 22:00 Artificial Tears OU BID NEENA Guaifenesin 10 ml 12/10/17 17:40 12/12/17 19:08 Guaifenesin Dm Syrup PO 10 ml Q8H PRN Administration COUGH Ceftriaxone Sodium 2 gm/ 100 mls @ 100 mls/hr 12/12/17 10:15 12/14/17 10:13 Dextrose IVPB 100 mls/hr DAILY NEENA Administration Insulin Aspart 1 vial 12/13/17 22:00 12/14/17 10:16 Novolog Vial Sliding Scale - SQ Not Given BID [facility] Protocol 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 [place]+ leukopenia pneumococcal bacteremia On rocephin thickening of proximal sigmoid on CT scans. No adenopathy BMBX-mildly hypercellular with erythroid hyperplasia. nl trilineage hematopoiesis FISH/FLow neg.
[2017-12-14] MEDS: ARTIFICIAL TEARS (POLYVINYL ALCOHOL 1.4%) OPTH DROPS OU SCH (22:02)
[2017-12-14] MEDS ORDERED: PT OWN MED DRAWER 7, Y5N ONE (22:40)
[2017-12-15 07:59] LABS: ALBUMIN 3.1 g/dl (3.4-5.0); ANION GAP 7 (8-16); BLOOD UREA NITROGEN 15 mg/dL (7-18); CALCIUM 8.1 mg/dL (8.5-10.1); CHLORIDE 109 mmol/L (98-107); CO2 25 mmol/L (21-32); CREATININE 0.7 mg/dL (0.55-1.02); GLUCOSE,RANDOM 95 mg/dL (74-106); POTASSIUM 4.2 mmol/L (3.5-5.1); SGOT/AST 17 U/L (15-37); SGPT/ALT 12 U/L (12-78); SODIUM 141 mmol/L (136-145)
[2017-12-15 08:01] LABS: ALK PHOS 72 U/L (45-117); BILIRUBIN,TOTAL 0.5 mg/dL (0.2-1.0); LDH 205 U/L (84-246); TOT PROT 5.8 g/dl (6.4-8.2)
[2017-12-15 08:22] LABS: BASO % 0.8 % (0-2.0); EOS % 3.7 % (0-4.5); HEMATOCRIT 21.3 % (32.4-45.2); HEMOGLOBIN 7.4 GM/dL (10.7-15.3); LYMPH % 30.9 % (8-40); MCH 32.8 pg (25.7-33.7); MEAN CELL VOLUME 94.3 fl (80-96); MEAN PLT VOLUME 6.6 fl (7.5-11.1); NEUT % 55.6 % (42.8-82.8); PLATELET COUNT 146 K/MM3 (134-434); RBC 2.26 M/mm3 (3.60-5.2); RDW 16.8 % (11.6-15.6)
[2017-12-15 08:23] LABS: MCHC 34.8 g/dl (32.0-36.0)
[2017-12-15 08:26] LABS: WHITE BLOOD COUNT 1.5 K/mm3 (4.0-10.0)
--- NOTE | 2017-12-15 08:49 | PN ---
Progress Note (short form) - Note Progress Note: NAD no complaints oob in chair Vital Signs Period Temp Pulse Resp BP Sys/Rodrigues Pulse Ox Last 24 Hr 97.7 F-98.4 F 58-76 16-20 119-146/43-70 100-100 cor-rrr lungs clear abd soft,nt ext no edema CBC, BMP 12/15/17 06:00 12/15/17 06:00 Microbiology 12/12/17 10:07 Blood - Peripheral Venous Blood Culture - Preliminary NO GROWTH OBTAINED AFTER 48 HOURS, INCUBATION TO CONTINUE FOR 3 DAYS. 12/12/17 09:10 Blood - Peripheral Venous Blood Culture - Preliminary NO GROWTH OBTAINED AFTER 48 HOURS, INCUBATION TO CONTINUE FOR 3 DAYS. 12/11/17 13:12 Serum Mycoplasma Antibody - Final 12/11/17 06:45 Blood - Peripheral Venous Blood Culture - Final Streptococcus Pneumoniae 12/11/17 06:40 Blood - Peripheral Venous Blood Culture - Final Streptococcus Pneumoniae 12/11/17 06:55 Urine - Urine Clean Catch Urine Culture - Final Streptococcus Viridans Diphtheroid/Corynebacterium a/p colonic malignancy pneumococcal bacteremia leukopenia hemolytic anemia bone marrow and serologies unrevealing continue ceftriaxone day #4-
--- NOTE | 2017-12-15 09:31 | PN ---
Physical Exam: SUBJECTIVE: Patient seen and examined No acute events overnight. Patient has mild cough in the mornings but states it is better now. OBJECTIVE: Vital Signs Period Temp Pulse Resp BP Sys/Rodrigues Pulse Ox Last 24 Hr 97.7 F-98.4 F 58-76 16-20 119-146/43-70 100-100 GENERAL: The patient is awake, alert, and fully oriented, in no acute distress HEAD: Normal with no signs of trauma. EYES: Extraocular movements intact, scleral icterus, conjunctiva clear. No ptosis. ENT: vascular lesion in left base of tongue, no pharyngeal erythema, mild tonsillar enlargement NECK: Trachea midline, full range of motion, supple. LUNGS: Breath sounds equal, clear to auscultation bilaterally, no wheezes, no crackles, no accessory muscle use. HEART: Tachycardic,Regular rhythm, S1, S2 without murmur, rub or gallop. ABDOMEN: Soft, nontender, nondistended, normoactive bowel sounds, no guarding, no rebound, no hepatosplenomegaly, no masses. EXTREMITIES: 2+ pulses, warm, well-perfused, no edema. Laboratory Results - last 24 hr 12/12/17 12/13/17 12/14/17 06:20 06:30 06:00 WBC RBC Hgb Hct MCV MCH MCHC RDW Plt Count MPV Neutrophils % Neutrophils % (Manual) Band Neutrophils % Lymphocytes % Lymphocytes % (Manual) Monocytes % Monocytes % (Manual) Eosinophils % Eosinophils % (Manual) Basophils % Basophils % (Manual) Myelocytes % (Man) Promyelocytes % (Man) Blast Cells % (Manual) Nucleated RBC % Metamyelocytes Hypochromia Platelet Estimate Polychromasia Anisocytosis Microcytosis Retic Count Sodium Potassium Chloride Carbon Dioxide Anion Gap BUN Creatinine Creat Clearance w eGFR POC Glucometer Random Glucose Calcium Total Bilirubin AST ALT Alkaline Phosphatase LD Total Total Protein Albumin Carcinoembryonic Ag 6.4 H Tot Complement (CH50) 31 L TB Test (QFT) Negative 12/14/17 12/14/17 12/14/17 06:30 10:15 21:58 WBC RBC Hgb Hct MCV MCH MCHC RDW Plt Count MPV Neutrophils % Neutrophils % (Manual) 49.5 Band Neutrophils % 0.0 Lymphocytes % Lymphocytes % (Manual) 32.7 Monocytes % Monocytes % (Manual) 11 H Eosinophils % Eosinophils % (Manual) 2.9 Basophils % Basophils % (Manual) 0.0 Myelocytes % (Man) 0 Promyelocytes % (Man) 0 Blast Cells % (Manual) 0 Nucleated RBC % 1 H Metamyelocytes 3 H Hypochromia 1+ Platelet Estimate Decreased Polychromasia 1+ Anisocytosis 1+ Microcytosis 1+ Retic Count Sodium Potassium Chloride Carbon Dioxide Anion Gap BUN Creatinine Creat Clearance w eGFR POC Glucometer 120 138 Random Glucose Calcium Total Bilirubin AST ALT Alkaline Phosphatase LD Total Total Protein Albumin Carcinoembryonic Ag Tot Complement (CH50) TB Test (QFT) 12/15/17 12/15/17 12/15/17 06:00 06:00 06:00 WBC 1.5 L* RBC 2.26 L Hgb 7.4 L Hct 21.3 L MCV 94.3 MCH 32.8 MCHC 34.8 RDW 16.8 H Plt Count 146 MPV 6.6 L Neutrophils % 55.6 D Neutrophils % (Manual) Band Neutrophils % Lymphocytes % 30.9 D Lymphocytes % (Manual) Monocytes % 9.0 Monocytes % (Manual) Eosinophils % 3.7 Eosinophils % (Manual) Basophils % 0.8 Basophils % (Manual) Myelocytes % (Man) Promyelocytes % (Man) Blast Cells % (Manual) Nucleated RBC % Metamyelocytes Hypochromia Platelet Estimate Polychromasia Anisocytosis Microcytosis Retic Count 0.78 D Sodium 141 Potassium 4.2 Chloride 109 H Carbon Dioxide 25 Anion Gap 7 L BUN 15 Creatinine 0.7 Creat Clearance w eGFR > 60 POC Glucometer Random Glucose 95 Calcium 8.1 L Total Bilirubin 0.5 AST 17 ALT 12 Alkaline Phosphatase 72 LD Total 205 Total Protein 5.8 L Albumin 3.1 L Carcinoembryonic Ag Tot Complement (CH50) TB Test (QFT) 12/15/17 06:12 WBC RBC Hgb Hct MCV MCH MCHC RDW Plt Count MPV Neutrophils % Neutrophils % (Manual) Band Neutrophils % Lymphocytes % Lymphocytes % (Manual) Monocytes % Monocytes % (Manual) Eosinophils % Eosinophils % (Manual) Basophils % Basophils % (Manual) Myelocytes % (Man) Promyelocytes % (Man) Blast Cells % (Manual) Nucleated RBC % Metamyelocytes Hypochromia Platelet Estimate Polychromasia Anisocytosis Microcytosis Retic Count Sodium Potassium Chloride Carbon Dioxide Anion Gap BUN Creatinine Creat Clearance w eGFR POC Glucometer 109 Random Glucose Calcium Total Bilirubin AST ALT Alkaline Phosphatase LD Total Total Protein Albumin Carcinoembryonic Ag Tot Complement (CH50) TB Test (QFT) Active Medications Generic Name Dose Route Start Last Admin Trade Name Freq PRN Reason Stop Dose Admin Acetaminophen 650 mg 12/11/17 08:10 12/11/17 16:32 Tylenol - PO 650 mg Q4H PRN Administration FEVER Amlodipine Besylate 10 mg 12/10/17 12:00 12/14/17 10:13 Norvasc - PO Not Given DAILY NEENA Artificial Tears 1 drop 12/14/17 22:00 12/14/17 22:02 Artificial Tears OU 1 drp BID NEENA Administration Guaifenesin 10 ml 12/10/17 17:40 12/12/17 19:08 Guaifenesin Dm Syrup PO 10 ml Q8H PRN Administration COUGH Ceftriaxone Sodium 2 gm/ 100 mls @ 100 mls/hr 12/12/17 10:15 12/14/17 10:13 Dextrose IVPB 100 mls/hr DAILY NEENA Administration Insulin Aspart 1 vial 12/13/17 22:00 12/14/17 22:02 Novolog Vial Sliding Scale - SQ Not Given BID NEENA Protocol ASSESSMENT/PLAN: 67 year old F with pmh of HTN and DM presented from PCP's office with anemia and leukopenia #Strep Pneumo bacteremia and Strep viridans urine culture -Continue Ceftriaxone 2 g daily -Repeat blood cultures drawn on 12/12 -ID consulted, will discuss length of abx course -Tylenol for fever #Hemolytic Anemia and Leukopenia -AUNDREA+ -BM Biopsy-- mild hypercellular marrow, flow negative, fish negative, trilinear hematopoeisis, no lymphoma -Parvovirus IGG + -Neutropenic precautions -GI Consult -Heme Consult #Sigmoid mass on colonoscopy, -Possible colon cancer -Biopsy pending -Heme/onc consulted -CEA elevated #Cardiomegaly -Echocardiogram impaired lv relaxation, EF 70%, LV size/thickness/fxn -Cardiology consulted #HTN -norvasc 10 po daily -monitor bp #Hyperglycemia, no longer diabetic -Bgm bid -iss bid #FEN/GI. PPx -No IVF -wnl -Full liquid -scd's Visit type - Emergency Visit Emergency Visit: Yes ED Registration Date: 12/07/17 Care time: The patient presented to the Emergency Department on the above date and was hospitalized for further evaluation of their emergent condition. - New Patient This patient is new to me today: No - Critical Care Critical Care patient: No
[2017-12-15] MEDS ORDERED: DEXTROSE 5%-WATER 100 ML IVPB ONE (11:20)
[2017-12-15] MEDS: CEFTRIAXONE 2 GM in DEXTROSE 5%-WATER 100 ML IVPB SCH (11:44)
[2017-12-15] MEDS: amLODIPine BESYLATE 10 MG TABLET (FP) PO SCH (11:44)
[2017-12-15] MEDS: ARTIFICIAL TEARS (POLYVINYL ALCOHOL 1.4%) OPTH DROPS OU SCH ×2 (11:44→22:46)
--- NOTE | 2017-12-15 14:01 | PN ---
Teaching Attending Note Name of Resident: Jacob Paul ATTENDING PHYSICIAN STATEMENT I saw and evaluated the patient. I reviewed the resident's note and discussed the case with the resident. I agree with the resident's findings and plan as documented. SUBJECTIVE: No fever or chills . still with dry cough. OBJECTIVE: NAD HEENT: MMM. Lungs: CTAB Abd: soft, NT, ND,nl BS Ext: no edema ASSESSMENT AND PLAN: 67 y/o lady with h/o HTN and Dm who presented with anemia and leukopenia from PCP 's office 1- Acute hemolytic anemia: could be due to infection VS autoimmune . - stable hb 2- Leukopenia: ? infection . BM bx reviewed no infiltration or MDS 3- Strep pneumo BActeremia: unclear source.no PNA on CT, no exudate in throat. - cont ceftriaxone. Duration to be determined - follow repeat blood cx 4- UTI: strep viridance 5- HTN : cont norvasc 6- Sigmoid colon mass, likely cancer. - follow bx results - no mets on C/A/P CT - surgical eval - onc on board Dispo : HLOC
--- NOTE | 2017-12-15 14:17 | PN ---
Progress Note (short form) - Note Progress Note: Chief Complaint: Events noted, notes reviewed, sitting in a chair denies any chest discomfort, denies any dyspnea but reports intermittent cough History of Present Illness: Seen and examined. Events noted, notes reviewed, sitting in a chair denies any chest discomfort, denies any dyspnea but reports intermittent cough Echocardiography performed 12/11/2017 Revealed Normal biventricular size and function, abnormal LV compliance, mild MR and TR - Current Medication List Current Medications Acetaminophen (Tylenol -) 650 mg PO Q4H PRN PRN Reason: FEVER Last Admin: 12/11/17 16:32 Dose: 650 mg Amlodipine Besylate (Norvasc -) 10 mg PO DAILY [facility] Last Admin: 12/15/17 11:44 Dose: 10 mg Artificial Tears (Artificial Tears) 1 drop OU BID [facility] Last Admin: 12/15/17 11:44 Dose: 1 drp Guaifenesin (Guaifenesin Dm Syrup) 10 ml PO Q8H PRN PRN Reason: COUGH Last Admin: 12/12/17 19:08 Dose: 10 ml Ceftriaxone Sodium 2 gm/ (Dextrose) 100 mls @ 100 mls/hr IVPB DAILY [facility] Last Admin: 12/15/17 11:44 Dose: 100 mls/hr Insulin Aspart (Novolog Vial Sliding Scale -) 1 vial SQ BID [facility] PRN Reason: Protocol Last Admin: 12/14/17 22:02 Dose: Not Given - Objective Vital Signs: Last Vital Signs Temp Pulse Resp BP Pulse Ox 98.4 F 62 20 135/57 100 12/15/17 05:00 12/15/17 05:00 12/15/17 05:00 12/15/17 05:00 12/14/17 20:32 Intake & Output 12/12/17 12/13/17 12/14/17 12/15/17 23:59 23:59 23:59 23:59 Intake Total 660 1670 100 220 Balance 660 1670 100 220 Constitutional: No Distress, Calm Neck: Supple Negative JVD Cardiovascular: S1-S2 Regular Rate and Rhythm Respiratory: Clear to A&A Bilaterally Gastrointestinal: Soft, Benign Normal Bowel Sounds Ext: No Edema Labs: CBC, BMP 12/15/17 06:00 12/15/17 06:00 Assessment/Plan ASSESSMENT: 1. Pneumococcal bacteremia, resolving 2. Autoimmune hemolytic anemia post transfusion 3. Jaundice secondary to AIHA 4. Neutropenia, persistent 5. HTN 6. DM 7. Colonic mass PLAN: 1. Continue Norvasc 2. Periodic transfusion as per hematology team 3. Evaluation of colon mass as planned Yanna Aguiar MD
--- NOTE | 2017-12-15 16:29 | PN ---
Progress Note (short form) - Note Progress Note: Patient seen and examined no specific complaints Last Vital Signs Temp Pulse Resp BP Pulse Ox 97.9 F 67 18 141/70 100 12/14/17 17:18 12/14/17 17:18 12/14/17 20:32 12/14/17 17:18 12/14/17 20:32 Cor: RSR, No murmurs, No gallops Lungs: Clear to P&A Abd: Soft, Normal bowel sounds, No organomegaly Ext:No significant edema Abnormal Lab Results 12/12/17 12/14/17 12/14/17 06:20 06:30 06:40 WBC 1.6 L* D RBC 2.27 L Hgb 7.5 L Hct 21.4 L RDW 17.2 H MPV 6.5 L Monocytes % (Manual) 11 H Nucleated RBC % 1 H Metamyelocytes 3 H Chloride 109 H Anion Gap 6 L Calcium 7.8 L Total Protein 5.7 L Albumin 3.0 L Parvovirus B19 IgG Ab 7.3 H Active Medications Generic Name Dose Route Start Last Admin Trade Name Freq PRN Reason Stop Dose Admin Acetaminophen 650 mg 12/11/17 08:10 12/11/17 16:32 Tylenol - PO 650 mg Q4H PRN Administration FEVER Amlodipine Besylate 10 mg 12/10/17 12:00 12/14/17 10:13 Norvasc - PO Not Given DAILY [facility]EE[facility] Artificial Tears 1 drop 12/14/17 22:00 Artificial Tears OU BID [facility]EE[facility] Guaifenesin 10 ml 12/10/17 17:40 12/12/17 19:08 Guaifenesin Dm Syrup PO 10 ml Q8H PRN Administration COUGH Ceftriaxone Sodium 2 gm/ 100 mls @ 100 mls/hr 12/12/17 10:15 12/14/17 10:13 Dextrose IVPB 100 mls/hr DAILY [facility]EE[facility] Administration Insulin Aspart 1 vial 12/13/17 22:00 12/14/17 10:16 Novolog Vial Sliding Scale - SQ Not Given BID [facility] Protocol 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 Clinton+ leukopenia pneumococcal bacteremia On rocephin thickening of proximal sigmoid on CT scans. No adenopathy Leukopenia ? post infectious BMBX-mildly hypercellular with erythroid hyperplasia. nl trilineage hematopoiesis FISH/FLow neg.
[2017-12-15] MEDS: INSULIN SLIDING SCALE (NOVOLOG) 1 VIAL SQ SCH ×2 (17:49→22:45)
[2017-12-16] MEDS: guaiFENesin/D-METHORPHAN HB 5 ML UNIT-DOSE CUPS PO PRN ×2 (06:36→23:08)
[2017-12-16 07:56] LABS: ANION GAP 6 (8-16); BLOOD UREA NITROGEN 14 mg/dL (7-18); CHLORIDE 110 mmol/L (98-107); CO2 25 mmol/L (21-32); CREATININE 0.6 mg/dL (0.55-1.02); GLUCOSE,RANDOM 96 mg/dL (74-106); POTASSIUM 4.2 mmol/L (3.5-5.1); SODIUM 141 mmol/L (136-145)
[2017-12-16 08:21] LABS: BASO % 0.5 % (0-2.0); EOS % 4.3 % (0-4.5); HEMATOCRIT 21.1 % (32.4-45.2); HEMOGLOBIN 7.4 GM/dL (10.7-15.3); LYMPH % 34.2 % (8-40); MCH 33.3 pg (25.7-33.7); MEAN CELL VOLUME 94.6 fl (80-96); MEAN PLT VOLUME 6.4 fl (7.5-11.1); PLATELET COUNT 149 K/MM3 (134-434); RBC 2.23 M/mm3 (3.60-5.2); RDW 16.5 % (11.6-15.6)
[2017-12-16 08:24] LABS: MCHC 35.2 g/dl (32.0-36.0); WHITE BLOOD COUNT 1.7 K/mm3 (4.0-10.0)
[2017-12-16] MEDS ORDERED: DEXTROSE 5%-WATER 200 ML IVPB ONE (10:41)
--- NOTE | 2017-12-16 10:55 | PN ---
Progress Note (short form) - Note Progress Note: Chief Complaint: Events noted, notes reviewed, ambulating in the hallway, denies any chest discomfort, denies any dyspnea History of Present Illness: Seen and examined. Events noted, notes reviewed, ambulating in the hallway, denies any chest discomfort, denies any dyspnea Echocardiography performed 12/11/2017 Revealed Normal biventricular size and function, abnormal LV compliance, mild MR and TR - Current Medication List Current Medications Acetaminophen (Tylenol -) 650 mg PO Q4H PRN PRN Reason: FEVER Last Admin: 12/11/17 16:32 Dose: 650 mg Amlodipine Besylate (Norvasc -) 10 mg PO DAILY [facility] Last Admin: 12/15/17 11:44 Dose: 10 mg Artificial Tears (Artificial Tears) 1 drop OU BID [facility] Last Admin: 12/15/17 22:46 Dose: 1 drp Guaifenesin (Guaifenesin Dm Syrup) 10 ml PO Q8H PRN PRN Reason: COUGH Last Admin: 12/16/17 06:36 Dose: 10 ml Ceftriaxone Sodium 2 gm/ (Dextrose) 100 mls @ 100 mls/hr IVPB DAILY [facility] Last Admin: 12/15/17 11:44 Dose: 100 mls/hr Insulin Aspart (Novolog Vial Sliding Scale -) 1 vial SQ BID [facility] PRN Reason: Protocol Last Admin: 12/15/17 22:45 Dose: Not Given - Objective Vital Signs: Last Vital Signs Temp Pulse Resp BP Pulse Ox 98.8 F 67 20 149/68 100 12/16/17 05:00 12/16/17 05:00 12/16/17 05:00 12/16/17 05:00 12/15/17 21:00 Intake & Output 12/13/17 12/14/17 12/15/17 12/16/17 23:59 23:59 23:59 23:59 Intake Total 7494 802 2460 100 Balance 1258 298 6058 100 Constitutional: No Distress, Calm Neck: Supple Negative JVD Cardiovascular: S1-S2 Regular Rate and Rhythm Respiratory: Clear to A&A Bilaterally Gastrointestinal: Soft, Benign Normal Bowel Sounds Ext: No Edema Labs: CBC, BMP 12/16/17 06:00 12/16/17 06:00 Hepatic Panel Total Bilirubin 0.5 mg/dL (0.2-1.0) 12/15/17 06:00 Direct Bilirubin 0.2 mg/dL (0.0-0.2) 12/13/17 06:30 AST 17 U/L (15-37) 12/15/17 06:00 ALT 12 U/L (12-78) 12/15/17 06:00 Alkaline Phosphatase 72 U/L (45-117) 12/15/17 06:00 Albumin 3.1 g/dl (3.4-5.0) L 12/15/17 06:00 INR, PTT INR 0.89 (0.82-1.09) 12/08/17 12:15 Fibrinogen 363.0 mg/dL (238-498) 12/07/17 21:10 Assessment/Plan ASSESSMENT: 1. Pneumococcal bacteremia, resolving 2. Autoimmune hemolytic anemia post transfusion 3. Jaundice secondary to AIHA 4. Neutropenia, persistent 5. HTN 6. DM 7. Colonic mass PLAN: 1. Continue Norvasc 2. Recommend the addition of B-Blockers, Toprol XL 3. Periodic transfusion as per hematology team 4. Evaluation of colon mass as planned Yanna Aguiar MD
[2017-12-16] MEDS: amLODIPine BESYLATE 10 MG TABLET (FP) PO SCH (11:02)
[2017-12-16] MEDS: CEFTRIAXONE 2 GM in DEXTROSE 5%-WATER 100 ML IVPB SCH (11:03)
[2017-12-16] MEDS: metoPROLOL SUCCINATE 25 MG TAB.SR.24H (FP) PO SCH (11:08)
[2017-12-16] MEDS: ARTIFICIAL TEARS (POLYVINYL ALCOHOL 1.4%) OPTH DROPS OU SCH ×2 (11:08→23:08)
--- NOTE | 2017-12-16 14:08 | PN ---
Progress Note, Physician History of Present Illness: OOB in chair No complaints Denies dyspnea/ chest pain/ cough No c/o fever/ chills Remains leukopenic/neutropenic, anemic - Current Medication List Current Medications: Active Medications Acetaminophen (Tylenol -) 650 mg PO Q4H PRN PRN Reason: FEVER Last Admin: 12/11/17 16:32 Dose: 650 mg Amlodipine Besylate (Norvasc -) 10 mg PO DAILY [facility] Last Admin: 12/16/17 11:02 Dose: 10 mg Artificial Tears (Artificial Tears) 1 drop OU BID [facility] Last Admin: 12/16/17 11:08 Dose: 1 drp Guaifenesin (Guaifenesin Dm Syrup) 10 ml PO Q8H PRN PRN Reason: COUGH Last Admin: 12/16/17 06:36 Dose: 10 ml Ceftriaxone Sodium 2 gm/ (Dextrose) 100 mls @ 100 mls/hr IVPB DAILY [facility] Last Admin: 12/16/17 11:03 Dose: 100 mls/hr Insulin Aspart (Novolog Vial Sliding Scale -) 1 vial SQ BID [facility] PRN Reason: Protocol Last Admin: 12/15/17 22:45 Dose: Not Given Metoprolol Succinate (Toprol Xl -) 25 mg PO DAILY [facility] Last Admin: 12/16/17 11:08 Dose: 25 mg - Objective Vital Signs: Vital Signs Temperature 98.8 F 12/16/17 05:00 Pulse Rate 67 12/16/17 05:00 Respiratory Rate 20 12/16/17 05:00 Blood Pressure 149/68 12/16/17 05:00 O2 Sat by Pulse Oximetry (%) 100 12/15/17 21:00 Constitutional: Yes: No Distress Cardiovascular: Yes: Regular Rate and Rhythm, S1, S2 Respiratory: Yes: CTA Bilaterally Gastrointestinal: Yes: Normal Bowel Sounds, Soft. No: Other Labs: CBC, BMP 12/16/17 06:00 12/16/17 06:00 INR, PTT INR 0.89 (0.82-1.09) 12/08/17 12:15 Fibrinogen 363.0 mg/dL (238-498) 12/07/17 21:10 Assessment/Plan Pneumococcal sepsis Leukopenia/ neutropenia Hemolytic anemia Continue ceftriaxone
[2017-12-16] MEDS ORDERED: DEXTROSE 5%-WATER 100 ML IVPB ONE (14:15)
--- NOTE | 2017-12-16 15:13 | PN ---
Progress Note (short form) - Note Progress Note: Subjective: no fever or chills , no abd pain or SOB, no melena or hematochezia Objective: Vital Signs: Last Vital Signs Temp Pulse Resp BP Pulse Ox 98.8 F 67 20 149/68 100 12/16/17 05:00 12/16/17 05:00 12/16/17 05:00 12/16/17 05:00 12/15/17 21:00 Laboratory Results - last 24 hr 12/15/17 12/15/17 12/16/17 17:42 22:43 06:00 WBC 1.7 L* RBC 2.23 L Hgb 7.4 L Hct 21.1 L MCV 94.6 MCH 33.3 MCHC 35.2 RDW 16.5 H Plt Count 149 MPV 6.4 L Neutrophils % 53.0 Lymphocytes % 34.2 Monocytes % 8.0 Eosinophils % 4.3 Basophils % 0.5 Sodium Potassium Chloride Carbon Dioxide Anion Gap BUN Creatinine POC Glucometer 130 145 Random Glucose Calcium Vitamin B12 TSH Free T4 12/16/17 12/16/17 06:00 06:00 WBC RBC Hgb Hct MCV MCH MCHC RDW Plt Count MPV Neutrophils % Lymphocytes % Monocytes % Eosinophils % Basophils % Sodium 141 Potassium 4.2 Chloride 110 H Carbon Dioxide 25 Anion Gap 6 L BUN 14 Creatinine 0.6 POC Glucometer Random Glucose 96 Calcium 8.0 L Vitamin B12 815 TSH 0.96 Free T4 1.06 Physical Exam: NAD HEENT: MMM. Lungs: CTAB Abd: soft, NT, ND,nl BS Ext: no edema ASSESSMENT AND PLAN: 67 y/o lady with h/o HTN and Dm who presented with anemia and leukopenia from PCP 's office 1- Acute hemolytic anemia: could be due to infection VS autoimmune . 2- Leukopenia: ? infection . BM bx with no infiltration or MDS 3- Strep pneumo bacteremia: unclear source. 4- UTI: strep viridance 5- HTN : cont norvasc 6- Sigmoid colon mass, likely cancer. plan: - cotn ceftriaxone . duration to be determined - cont norvasc - toprol added - surgical eval for colon mass - follow colon mass bx . Visit type - Emergency Visit Emergency Visit: Yes ED Registration Date: 12/07/17 Care time: The patient presented to the Emergency Department on the above date and was hospitalized for further evaluation of their emergent condition. - New Patient This patient is new to me today: No - Critical Care Critical Care patient: No
[2017-12-16] MEDS: INSULIN SLIDING SCALE (NOVOLOG) 1 VIAL SQ SCH ×2 (18:04→23:07)
[2017-12-16] MEDS ORDERED: INSULIN (NOVOLOG) ASPART 100 UNITS/ML 10ML VIAL ONE (21:18)
[2017-12-16 21:33] LABS: URINE APPEARANCE SLCLOUDY; URINE BILIRUBIN NEGATIVE (<2.0 mg/dL); URINE BLOOD NEGATIVE (NEGATIVE); URINE COLOR DKYELLOW; URINE GLUCOSE (UA) NEGATIVE (NEGATIVE); URINE KETONE NEGATIVE (NEGATIVE); URINE LEUK ESTERASE NEGATIVE (NEGATIVE); URINE NITRITE NEGATIVE (NEGATIVE); URINE UROBILINOGEN 4.0 E.U/dl mg/dL (0.2-1.0)
[2017-12-16 21:36] LABS: URINE PROTEIN 2+ (NEGATIVE)
[2017-12-16 21:37] LABS: EPI CELLS RARE /HPF (FEW)
--- NOTE | 2017-12-17 06:37 | CONSULT ---
- Consultation REQUESTING PROVIDER: Garry MCKEON CONSULT REQUEST: We have been asked to surgically evaluate this patient for sigmoid colon carcinoma. PCP:Jo Ann Castañeda HISTORY OF PRESENT ILLNESS: CTSP for evaluation and management after admission for abdominal pain reveals sigmoid colon mass and ? hemolytic anemia ? PMHx: none PSHx: none Home Medications Medication Instructions Recorded NK [No Known Home Medication] 12/07/17 Allergies Allergy/AdvReac Type Severity Reaction Status Date / Time No Known Allergies Allergy Verified 12/07/17 14:57 PHYSICAL EXAM: GENERAL: Awake, alert, and fully oriented, in no acute distress. HEAD: Normal with no signs of trauma. ABDOMEN: Soft, nontender, not distended, normoactive bowel sounds, no guarding, no rebound, no masses. No organomegaly. No hernias MUSCULOSKELETAL: Normal ROM at all joints. No bony deformities or tenderness. No CVA tenderness. UPPER EXTREMITIES: 2+ pulses, warm, well-perfused. No cyanosis. Cap refill <2 seconds. No peripheral edema. LOWER EXTREMITIES: 2+ pulses, warm, well-perfused. No calf tenderness. No peripheral edema. NEUROLOGICAL: Normal speech, gait observed. PSYCH: Cooperative. Good eye contact. Appropriate mood and affect. SKIN: Warm, dry, normal turgor, no rashes or lesions noted. Vital Signs Temperature 98 F 12/17/17 05:56 Pulse Rate 64 12/17/17 05:56 Respiratory Rate 18 12/17/17 05:56 Blood Pressure 136/69 12/17/17 05:56 O2 Sat by Pulse Oximetry (%) 100 12/16/17 20:23 Lab Results WBC 1.7 K/mm3 (4.0-10.0) L* 12/16/17 06:00 RBC 2.23 M/mm3 (3.60-5.2) L 12/16/17 06:00 Hgb 7.4 GM/dL (10.7-15.3) L 12/16/17 06:00 Hct 21.1 % (32.4-45.2) L 12/16/17 06:00 MCV 94.6 fl (80-96) 12/16/17 06:00 MCHC 35.2 g/dl (32.0-36.0) 12/16/17 06:00 RDW 16.5 % (11.6-15.6) H 12/16/17 06:00 Plt Count 149 K/MM3 (134-434) 12/16/17 06:00 Sodium 141 mmol/L (136-145) 12/16/17 06:00 Potassium 4.2 mmol/L (3.5-5.1) 12/16/17 06:00 Chloride 110 mmol/L (98-107) H 12/16/17 06:00 Carbon Dioxide 25 mmol/L (21-32) 12/16/17 06:00 Anion Gap 6 (8-16) L 12/16/17 06:00 BUN 14 mg/dL (7-18) 12/16/17 06:00 Creatinine 0.6 mg/dL (0.55-1.02) 12/16/17 06:00 Random Glucose 96 mg/dL (74-106) 12/16/17 06:00 Calcium 8.0 mg/dL (8.5-10.1) L 12/16/17 06:00 Blood Type O POSITIVE 12/08/17 12:15 Antibody Screen Negative 12/08/17 12:15 INR 0.89 (0.82-1.09) 12/08/17 12:15 W/u to date reviewed; colonoscopy reviewed and bx. positive for adenocarcinoma IMP: sigmoid carcinoma; sepsis; hemolytic anemia PLAN: Patient will need sigmoid colon resection d/w the patient and her sister in [place]; case d/w primary care team and Dr. Aguirre w/r/t won; will f /u. Wesley Cronin MD FACS Visit type - Case Type Case Type: ED Admission - Emergency Emergency Visit: Yes ED Registration Date: 12/07/17 Care time: The patient presented to the Emergency Department on the above date and was hospitalized for further evaluation of their emergent condition. - New patient This patient is new to me today: Yes Date on this admission: 12/17/17 - Critical Care Critical Care patient: No
[2017-12-17 08:25] LABS: HEMATOCRIT 22.4 % (32.4-45.2); HEMOGLOBIN 7.9 GM/dL (10.7-15.3); MCH 33.4 pg (25.7-33.7); MCHC 35.5 g/dl (32.0-36.0); MEAN PLT VOLUME 6.4 fl (7.5-11.1); PLATELET COUNT 165 K/MM3 (134-434); RBC 2.38 M/mm3 (3.60-5.2); RDW 16.1 % (11.6-15.6)
[2017-12-17 09:28] LABS: ANISOCYTOSIS 1+; OVALOCYTE 1+; PLATELET ESTIMATE NORMAL
--- NOTE | 2017-12-17 09:28 | CONSULT ---
Consult Consult Specialty:: Rheumatology - History of Present Illness History of Present Illness: 67 y/o F female with history of HTN, DM and mental retardation, admitted with abdominal pain and was found to have cholelithiasis, hemolytic anemia with Clinton positive, leukopenia and low CH50. The patient cannot provide adequate history. 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 She denies skin rash, oral ulcers, dry mouth, Raynaud's phenomenon or joint pain. On admission CBC with WBC of 1.5, Hgb 7.4, HCT 21.3 and platelets 146. Creatinine 0.6, LDH 323 improved to 205. Urinalysis with protein 2+ and no blood. ANDREA negative, CH50 decreased (31). Parvovirus B19 negative. Bone marrow essentially normal (mild hypercellular trilineage hematopoyesis) - History Source History Provided By: Medical Record Limitations to Obtaining History: Other - Past Medical History Cardio/Vascular: Yes: HTN ...: No Endocrine: Yes: Diabetes Mellitus - Past Surgical History Past Surgical History: Yes: None - Alcohol/Substance Use Hx Alcohol Use: No - Smoking History Smoking history: Never smoked - Social History Usual Living Arrangement: With Significant Other (with sister) ADL: Family Assistance Home Medications - Allergies Allergies/Adverse Reactions: Allergies Allergy/AdvReac Type Severity Reaction Status Date / Time No Known Allergies Allergy Verified 12/07/17 14:57 - Home Medications Home Medications: Ambulatory Orders NK [No Known Home Medication] 12/07/17 Review of Systems - Review of Systems Constitutional: reports: No Symptoms Eyes: reports: No Symptoms HENT: reports: No Symptoms Neck: reports: No Symptoms Cardiovascular: reports: No Symptoms Respiratory: reports: Cough Gastrointestinal: reports: Abdominal Pain, Vomiting Musculoskeletal: reports: No Symptoms Integumentary: reports: No Symptoms Physical Exam Vital Signs: Vital Signs Temperature 98 F 12/17/17 05:56 Pulse Rate 64 12/17/17 05:56 Respiratory Rate 18 12/17/17 05:56 Blood Pressure 136/69 12/17/17 05:56 O2 Sat by Pulse Oximetry (%) 100 12/16/17 20:23 Constitutional: Yes: No Distress Eyes: Yes: WNL HENT: Yes: WNL Neck: Yes: WNL Cardiovascular: Yes: WNL Respiratory: Yes: WNL Gastrointestinal: Yes: WNL Musculoskeletal: Yes: Other (No active joints) Labs: CBC, BMP 12/17/17 06:40 12/16/17 06:00 Laboratory Tests 12/07/17 12/08/17 12/12/17 18:59 12:15 06:20 ESR LD Total 323 H DEBORAH M-Hunter Not observed Cold Agglutinins Negative ANDREA Screen Negative Tot Complement (CH50) Parvovirus B19 IgG Ab 7.3 H Parvovirus B19 IgM Ab 0.2 12/13/17 12/15/17 12/17/17 06:30 06:00 06:40 ESR 39 H LD Total 205 DEBORAH M-Hunter Cold Agglutinins ANDREA Screen Tot Complement (CH50) 31 L Parvovirus B19 IgG Ab Parvovirus B19 IgM Ab Problem List - Problems (1) Lupus (systemic lupus erythematosus) Assessment/Plan: Hemolytic anemia, leukopenia, low CH50. Rule out systemic lupus erythematosus. Plan: Anti-DNAds pending. I requested C3, C4, anti-Sm and anti-GUIDE DELEGATE. Continue same medications. Code(s): M32.9 - SYSTEMIC LUPUS ERYTHEMATOSUS, UNSPECIFIED
[2017-12-17] MEDS ORDERED: DEXTROSE 5%-WATER 100 ML IVPB ONE (10:00)
[2017-12-17] MEDS: metoPROLOL SUCCINATE 25 MG TAB.SR.24H (FP) PO SCH (10:06)
[2017-12-17] MEDS: amLODIPine BESYLATE 10 MG TABLET (FP) PO SCH (10:06)
[2017-12-17] MEDS: guaiFENesin/D-METHORPHAN HB 5 ML UNIT-DOSE CUPS PO PRN (10:07)
[2017-12-17] MEDS: CEFTRIAXONE 2 GM in DEXTROSE 5%-WATER 100 ML IVPB SCH (10:07)
[2017-12-17] MEDS ORDERED: INSULIN (NOVOLOG) ASPART 100 UNITS/ML 10ML VIAL ONE ×2 (10:18→21:56)
[2017-12-17] MEDS: INSULIN SLIDING SCALE (NOVOLOG) 1 VIAL SQ SCH ×2 (10:19→22:46)
[2017-12-17] MEDS: ARTIFICIAL TEARS (POLYVINYL ALCOHOL 1.4%) OPTH DROPS OU SCH ×2 (10:20→22:42)
--- NOTE | 2017-12-17 11:14 | PN ---
Progress Note (short form) - Note Progress Note: ID Ceftriaxone Selected Entries 12/17/17 05:56 Temperature 98 F Pulse Rate 64 Respiratory 18 Rate Blood Pressure 136/69 Laboratory Tests 12/07/17 12/16/17 12/17/17 18:59 06:00 06:40 WBC 2.0 L Hgb 7.9 L Hct 22.4 L Plt Count 165 BUN 14 Creatinine 0.6 HIV 1&2 Antibody Screen Negative HIV P24 Antigen Negative Microbiology 12/11/17 06:45 Blood - Peripheral Venous Blood Culture - Final Streptococcus Pneumoniae 12/11/17 06:40 Blood - Peripheral Venous Blood Culture - Final Streptococcus Pneumoniae Assessment Pneumococcal bacteremia Plan Continue current antibiotic Marcin MCKEON
--- NOTE | 2017-12-17 11:36 | PN ---
Progress Note, Physician History of Present Illness: Afebrile on Rocephin, repeat cultures NGTD, neutropenia resolved, colonscopy revealed circumferential, nearly obstructing, friable, bleeding on contact mass found at 30 cm, extensively biopsied, distal end tattooed. - Current Medication List Current Medications: Active Medications Acetaminophen (Tylenol -) 650 mg PO Q4H PRN PRN Reason: FEVER Last Admin: 12/11/17 16:32 Dose: 650 mg Amlodipine Besylate (Norvasc -) 10 mg PO DAILY [facility] Last Admin: 12/17/17 10:06 Dose: 10 mg Artificial Tears (Artificial Tears) 1 drop OU BID [facility] Last Admin: 12/17/17 10:20 Dose: 1 drp Guaifenesin (Guaifenesin Dm Syrup) 10 ml PO Q8H PRN PRN Reason: COUGH Last Admin: 12/17/17 10:07 Dose: 10 ml Ceftriaxone Sodium 2 gm/ (Dextrose) 100 mls @ 100 mls/hr IVPB DAILY [facility] Last Admin: 12/17/17 10:07 Dose: 100 mls/hr Insulin Aspart (Novolog Vial Sliding Scale -) 1 vial SQ BID [facility] PRN Reason: Protocol Last Admin: 12/17/17 10:19 Dose: 2 unit Metoprolol Succinate (Toprol Xl -) 25 mg PO DAILY [facility] Last Admin: 12/17/17 10:06 Dose: 25 mg - Objective Vital Signs: Vital Signs Temperature 98 F 12/17/17 05:56 Pulse Rate 64 12/17/17 05:56 Respiratory Rate 18 12/17/17 05:56 Blood Pressure 136/69 12/17/17 05:56 O2 Sat by Pulse Oximetry (%) 100 12/16/17 20:23 Constitutional: Yes: No Distress, Calm Neck: Yes: Supple Cardiovascular: Yes: Regular Rate and Rhythm Respiratory: Yes: Regular, Diminished Gastrointestinal: Yes: Soft, Hypoactive Bowel Sounds Edema: No Labs: CBC, BMP 12/17/17 06:40 12/16/17 06:00 INR, PTT INR 0.89 (0.82-1.09) 12/08/17 12:15 Fibrinogen 363.0 mg/dL (238-498) 12/07/17 21:10 Problem List - Problems (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 - OTHER AUTOIMMUNE HEMOLYTIC ANEMIAS (2) Hypertension Code(s): I10 - ESSENTIAL (PRIMARY) HYPERTENSION Qualifiers: Hypertension type: essential hypertension Qualified Code(s): I10 - Essential (primary) hypertension (3) Leukopenia Code(s): D72.819 - DECREASED WHITE BLOOD CELL COUNT, UNSPECIFIED Qualifiers: Leukopenia type: neutropenia (4) Indirect hyperbilirubinemia Code(s): E80.6 - OTHER DISORDERS OF BILIRUBIN METABOLISM (5) Bacteremia due to Streptococcus pneumoniae Code(s): R78.81 - BACTEREMIA (6) Colonic mass Code(s): K63.9 - DISEASE OF INTESTINE, UNSPECIFIED Assessment/Plan 12/11/2017 Echo: Normal biventricular size and fxn, abnormal LV compliance, mild MR, TR 1. Pneumococcal bacteremia, resolving 2. Autoimmune hemolytic anemia post transfusion 3. Jaundice secondary to AIHA 4. Neutropenia, persistent 5. HTN 6. DM 7. Colonic mass PLAN: 1. Continue Norvasc 10 qd and Toprol XL 25 qd 2. Periodic transfusion as per hematology team 3. Evaluation of colon mass as planned 4. Complete abx course
--- NOTE | 2017-12-17 12:42 | PATH ---
Surgical Pathology Report Patient Name: TROY MACIAS [facility]. Rec. #: [id number] /Age/Gender: 1950 (Age: 67) / F Account: [id number] Location: [facility] MED/SURG Taken: 12/14/2017 Received: 12/14/2017 Reported: 12/17/2017 Physicians: Anibal Donovan M.D. Smitha Mellacheruvu, M.D. Specimen(s) Received BX MASS @ 30 CM Clinical History Colitis, abnormal CT scan Postoperative diagnosis: Mass at 30 cm nearly obstructing, poor prep Final Diagnosis SIGMOID COLON, 30 CM, MASS, BIOPSY: INVASIVE ADENOCARCINOMA, MODERATELY DIFFERENTIATED. Comment: Additional studies for Mismatch repair proteins (MMR) are pending and will be reported as an addendum. Office of Dr. Quinonez informed that significant findings will be faxed (Brandi). Findings discussed with Dr. Aguirre. Electronically Signed Camille Emmanuel M.D. Addendum Reported: 12/18/2017 Addendum Diagnosis Immunohistochemical stains for MisMatch Repair Protein Analysis performed at [facility] in [place], [place] ([id number]) and interpreted at [facility] show the following: RESULTS: HMLH-1 INTACT NUCLEAR EXPRESSION HMSH-2 INTACT NUCLEAR EXPRESSION HMSH-6 INTACT NUCLEAR EXPRESSION PMS2 INTACT NUCLEAR EXPRESSION INTERPRETATION: No loss of nuclear expression of MMR proteins: low probability of microsatellite instability-high (MSI-H) Camille Emmanuel M.D. Gross Description Received in formalin labeled "mass at 30 cm," is a 0.7 x 0.6 x 0.2 cm aggregate of zaragoza soft tissue fragments. The formalin is filtered and the specimen is entirely submitted in one cassette. /12/14/201712/14/2017
--- NOTE | 2017-12-17 13:05 | PN ---
Progress Note, Physician History of Present Illness: Asymptomatic. Sitting in chair. Comfortable. Discussed with pt's sister at bedside and niece (via phone). No bleeding, abdominal distension, vomiting, pain. - Current Medication List Current Medications: Active Medications Acetaminophen (Tylenol -) 650 mg PO Q4H PRN PRN Reason: FEVER Last Admin: 12/11/17 16:32 Dose: 650 mg Amlodipine Besylate (Norvasc -) 10 mg PO DAILY [facility] Last Admin: 12/17/17 10:06 Dose: 10 mg Artificial Tears (Artificial Tears) 1 drop OU BID [facility] Last Admin: 12/17/17 10:20 Dose: 1 drp Guaifenesin (Guaifenesin Dm Syrup) 10 ml PO Q8H PRN PRN Reason: COUGH Last Admin: 12/17/17 10:07 Dose: 10 ml Ceftriaxone Sodium 2 gm/ (Dextrose) 100 mls @ 100 mls/hr IVPB DAILY [facility] Last Admin: 12/17/17 10:07 Dose: 100 mls/hr Insulin Aspart (Novolog Vial Sliding Scale -) 1 vial SQ BID [facility] PRN Reason: Protocol Last Admin: 12/17/17 10:19 Dose: 2 unit Metoprolol Succinate (Toprol Xl -) 25 mg PO DAILY [facility] Last Admin: 12/17/17 10:06 Dose: 25 mg - Objective Vital Signs: Vital Signs Temperature 98.2 F 12/17/17 09:00 Pulse Rate 64 12/17/17 09:00 Respiratory Rate 18 12/17/17 09:00 Blood Pressure 157/62 12/17/17 09:00 O2 Sat by Pulse Oximetry (%) 100 12/17/17 09:00 Constitutional: Yes: Calm Eyes: Yes: Conjunctiva Clear Cardiovascular: No: Bradycardia, Tachycardia Gastrointestinal: Yes: Normal Bowel Sounds, Soft. No: Distention, Melena, Rectal Bleeding, Vomiting Labs: CBC, BMP 12/17/17 06:40 12/16/17 06:00 INR, PTT INR 0.89 (0.82-1.09) 12/08/17 12:15 Fibrinogen 363.0 mg/dL (238-498) 12/07/17 21:10 Problem List - Problems (1) Rectal mass Code(s): K62.9 - DISEASE OF ANUS AND RECTUM, UNSPECIFIED (2) Abnormal CT of the abdomen Code(s): R93.5 - ABN FINDINGS ON DX IMAGING OF ABD REGIONS, INC RETROPERITON (3) Abdominal pain Code(s): R10.9 - UNSPECIFIED ABDOMINAL PAIN Qualifiers: Abdominal location: generalized Qualified Code(s): R10.84 - Generalized abdominal pain (4) Autoimmune hemolytic anemia Code(s): D59.1 - OTHER AUTOIMMUNE HEMOLYTIC ANEMIAS Assessment/Plan Continue current care and work up. Awaiting pathology report.
--- NOTE | 2017-12-17 13:45 | PN ---
Physical Exam: SUBJECTIVE: Patient seen and examined No acute events overnight. Patient complaining of mild cough throughout the day. OBJECTIVE: Vital Signs Period Temp Pulse Resp BP Sys/Rodrigues Pulse Ox Last 24 Hr 98 F-98.8 F 64-75 18-20 123-157/55-69 100-100 GENERAL: The patient is awake, alert, and fully oriented, in no acute distress HEAD: Normal with no signs of trauma. EYES: Extraocular movements intact, scleral icterus, conjunctiva clear. No ptosis. ENT: vascular lesion in left base of tongue, no pharyngeal erythema, mild tonsillar enlargement NECK: Trachea midline, full range of motion, supple. LUNGS: Breath sounds equal, clear to auscultation bilaterally, no wheezes, no crackles, no accessory muscle use. HEART: Regular rate, Regular rhythm, S1, S2 without murmur, rub or gallop. ABDOMEN: Soft, nontender, nondistended, normoactive bowel sounds, no guarding, no rebound, no hepatosplenomegaly, no masses. EXTREMITIES: 2+ pulses, warm, well-perfused, no edema. Laboratory Results - last 24 hr 12/07/17 12/16/17 12/16/17 18:59 16:43 20:10 WBC RBC Hgb Hct MCV MCH MCHC RDW Plt Count MPV Neutrophils % Neutrophils % (Manual) Band Neutrophils % Lymphocytes % Lymphocytes % (Manual) Monocytes % (Manual) Eosinophils % (Manual) Basophils % (Manual) Myelocytes % (Man) Promyelocytes % (Man) Blast Cells % (Manual) Nucleated RBC % Metamyelocytes Hypochromia Platelet Estimate Polychromasia Anisocytosis Microcytosis Ovalocytes ESR POC Glucometer 189 Urine Color Dkyellow Urine Appearance Slcloudy Urine pH 6.0 Ur Specific [place] 1.023 Urine Protein 2+ H Urine Glucose (UA) Negative Urine Ketones Negative Urine Blood Negative Urine Nitrite Negative Urine Bilirubin Negative Urine Urobilinogen 4.0 e.u/dl H Ur Leukocyte Esterase Negative Urine WBC (Auto) 1 Urine RBC (Auto) 1 Ur Epithelial Cells Rare Hep C Ab Diagnostic <0.1 12/16/17 12/17/17 12/17/17 23:04 06:40 06:40 WBC 2.0 L RBC 2.38 L Hgb 7.9 L Hct 22.4 L MCV 94.0 MCH 33.4 MCHC 35.5 RDW 16.1 H Plt Count 165 MPV 6.4 L Neutrophils % No Result Required. Neutrophils % (Manual) 54.0 Band Neutrophils % 0.0 Lymphocytes % No Result Required. Lymphocytes % (Manual) 25.6 D Monocytes % (Manual) 12 H Eosinophils % (Manual) 6.2 H D Basophils % (Manual) 0.0 Myelocytes % (Man) 2 D Promyelocytes % (Man) 0 Blast Cells % (Manual) 0 Nucleated RBC % 0 Metamyelocytes 1 D Hypochromia 2+ Platelet Estimate Normal Polychromasia 1+ Anisocytosis 1+ Microcytosis 1+ Ovalocytes 1+ ESR 39 H POC Glucometer 149 Urine Color Urine Appearance Urine pH Ur Specific [place] Urine Protein Urine Glucose (UA) Urine Ketones Urine Blood Urine Nitrite Urine Bilirubin Urine Urobilinogen Ur Leukocyte Esterase Urine WBC (Auto) Urine RBC (Auto) Ur Epithelial Cells Hep C Ab Diagnostic 12/17/17 10:15 WBC RBC Hgb Hct MCV MCH MCHC RDW Plt Count MPV Neutrophils % Neutrophils % (Manual) Band Neutrophils % Lymphocytes % Lymphocytes % (Manual) Monocytes % (Manual) Eosinophils % (Manual) Basophils % (Manual) Myelocytes % (Man) Promyelocytes % (Man) Blast Cells % (Manual) Nucleated RBC % Metamyelocytes Hypochromia Platelet Estimate Polychromasia Anisocytosis Microcytosis Ovalocytes ESR POC Glucometer 178 Urine Color Urine Appearance Urine pH Ur Specific [place] Urine Protein Urine Glucose (UA) Urine Ketones Urine Blood Urine Nitrite Urine Bilirubin Urine Urobilinogen Ur Leukocyte Esterase Urine WBC (Auto) Urine RBC (Auto) Ur Epithelial Cells Hep C Ab Diagnostic Active Medications Generic Name Dose Route Start Last Admin Trade Name Mehrdadq PRN Reason Stop Dose Admin Acetaminophen 650 mg 12/11/17 08:10 12/11/17 16:32 Tylenol - PO 650 mg Q4H PRN Administration FEVER Amlodipine Besylate 10 mg 12/10/17 12:00 12/17/17 10:06 Norvasc - PO 10 mg DAILY NEENA Administration Artificial Tears 1 drop 12/14/17 22:00 12/17/17 10:20 Artificial Tears OU 1 drp BID NEENA Administration Guaifenesin 10 ml 12/10/17 17:40 12/17/17 10:07 Guaifenesin Dm Syrup PO 10 ml Q8H PRN Administration COUGH Ceftriaxone Sodium 2 gm/ 100 mls @ 100 mls/hr 12/12/17 10:15 12/17/17 10:07 Dextrose IVPB 100 mls/hr DAILY NEENA Administration Insulin Aspart 1 vial 12/13/17 22:00 12/17/17 10:19 Novolog Vial Sliding Scale - SQ 2 unit BID NEENA Administration Protocol Metoprolol Succinate 25 mg 12/16/17 11:00 12/17/17 10:06 Toprol Xl - PO 25 mg DAILY NEENA Administration ASSESSMENT/PLAN: 67 year old F with pmh of HTN and DM presented from PCP's office with anemia and leukopenia #Strep Pneumo bacteremia and Strep viridans urine culture -Continue Ceftriaxone 2 g daily -Repeat blood cultures drawn on 12/12 -ID consulted, will discuss length of abx course -Tylenol for fever #Hemolytic Anemia and Leukopenia -AUNDREA+ -BM Biopsy-- mild hypercellular marrow, flow negative, fish negative, trilinear hematopoeisis, no lymphoma -Parvovirus IGG + -Neutropenic precautions -GI Consult -Heme Consult -Rheum consult, ruling out SLE #Sigmoid mass on colonoscopy, -Possible colon cancer -Biopsy pending -Heme/onc consulted -CEA elevated #Cardiomegaly -Echocardiogram impaired lv relaxation, EF 70%, LV size/thickness/fxn -Cardiology consulted #HTN -norvasc 10 po daily -monitor bp #Hyperglycemia, no longer diabetic -Bgm bid -iss bid #FEN/GI. PPx -No IVF -wnl -Full liquid -scd's Visit type - Emergency Visit Emergency Visit: Yes ED Registration Date: 12/07/17 Care time: The patient presented to the Emergency Department on the above date and was hospitalized for further evaluation of their emergent condition. - New Patient This patient is new to me today: No - Critical Care Critical Care patient: No
--- NOTE | 2017-12-17 16:17 | PN ---
Teaching Attending Note Name of Resident: Jacob Paul ATTENDING PHYSICIAN STATEMENT I saw and evaluated the patient. I reviewed the resident's note and discussed the case with the resident. I agree with the resident's findings and plan as documented. SUBJECTIVE: no fever or chills , mild cough improved , dry eyes. no CP or SOB. OBJECTIVE: NAD HEENT: MMM. Lungs: CTAB Abd: soft, NT, ND, nl BS. Ext: no edema or erythema ASSESSMENT AND PLAN: 67 y/o lady with h/o HTN and Dm who presented with anemia and leukopenia from PCP 's office 1- Acute hemolytic anemia: could be due to infection VS autoimmune . EVB nuclear antigen + , ? the cause 2- Leukopenia:? EBV infection 3- Strep pneumo bacteremia: unclear source. 4- UTI: strep viridance 5- HTN : cont norvasc 6- Sigmoid colon mass, likely cancer. plan: - EBV nuclear Ag +, this could explain the BM suppression and hemolytic anemia. but agree with Rheum, SLE needs to be r/o , follow complement/ anti Hidalgo and DS DNA - cont ceftriaxone . duration to be determined - cont norvasc and toprol - surgical eval for colon mass . Dr. hooks eric d/w Niece due patient's cognitive problems - follow colon mass bx results
[2017-12-17 16:29] LABS: COLD AGGLUTININS Negative (Neg <1:32)
--- NOTE | 2017-12-17 17:32 | PN ---
Progress Note (short form) - Note Progress Note: Patient seen and examined no specific complaints Last Vital Signs Temp Pulse Resp BP Pulse Ox 97.9 F 61 20 123/61 100 12/17/17 14:51 12/17/17 14:51 12/17/17 14:51 12/17/17 14:51 12/17/17 09:00 Cor: RSR, No murmurs, No gallops Lungs: Clear to P&A Abd: Soft, Normal bowel sounds, No organomegaly Ext:No significant edema Abnormal Lab Results 12/16/17 12/16/17 12/17/17 06:00 20:10 06:40 WBC 2.0 L RBC 2.38 L Hgb 7.9 L Hct 22.4 L RDW 16.1 H MPV 6.4 L Monocytes % (Manual) 12 H Eosinophils % (Manual) 6.2 H D ESR Urine Protein 2+ H Urine Urobilinogen 4.0 e.u/dl H EBV Nuclear Antigen >600.0 H 12/17/17 06:40 WBC RBC Hgb Hct RDW MPV Monocytes % (Manual) Eosinophils % (Manual) ESR 39 H Urine Protein Urine Urobilinogen EBV Nuclear Antigen Active Medications Generic Name Dose Route Start Last Admin Trade Name Freq PRN Reason Stop Dose Admin Acetaminophen 650 mg 12/11/17 08:10 12/11/17 16:32 Tylenol - PO 650 mg Q4H PRN Administration FEVER Amlodipine Besylate 10 mg 12/10/17 12:00 12/17/17 10:06 Norvasc - PO 10 mg DAILY NEENA Administration Artificial Tears 1 drop 12/14/17 22:00 12/17/17 10:20 Artificial Tears OU 1 drp BID NEENA Administration Guaifenesin 10 ml 12/10/17 17:40 12/17/17 10:07 Guaifenesin Dm Syrup PO 10 ml Q8H PRN Administration COUGH Ceftriaxone Sodium 2 gm/ 100 mls @ 100 mls/hr 12/12/17 10:15 12/17/17 10:07 Dextrose IVPB 100 mls/hr DAILY NEENA Administration Insulin Aspart 1 vial 12/13/17 22:00 12/17/17 10:19 Novolog Vial Sliding Scale - SQ 2 unit BID NEENA Administration Protocol Metoprolol Succinate 25 mg 12/16/17 11:00 12/17/17 10:06 Toprol Xl - PO 25 mg DAILY NEENA Administration 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 [place]+ leukopenia pneumococcal bacteremia On rocephin Leukopenia ? post infectious ?? autoimmune BMBX-mildly hypercellular with erythroid hyperplasia. nl trilineage hematopoiesis FISH/FLow neg. Slowly recovering Rheumatologic w/u ongoing Sigmoid adeno ca-- CT c/a/p--proximal sigmoid thickening , was neg. for nodes or metastases for resection once completes treatment for bacteremia and counts improved discussed with dr. jessee rondon [facility] patients niece
[2017-12-17] MEDS ORDERED: PT OWN MED DRAWER 7, Y5N ONE (21:57)
[2017-12-17] MEDS ORDERED: SENNOSIDES/DOCUSATE COMBO (SENNA PLUS) TABLET (UD) PO SCH (22:00)
[2017-12-18 08:50] LABS: BASO % 1.2 % (0-2.0); EOS % 4.8 % (0-4.5); HEMOGLOBIN 8.1 GM/dL (10.7-15.3); LYMPH % 25.4 % (8-40); MCH 33.2 pg (25.7-33.7); MEAN CELL VOLUME 94.6 fl (80-96); MEAN PLT VOLUME 6.6 fl (7.5-11.1); MONO % 10.6 % (3.8-10.2); PLATELET COUNT 186 K/MM3 (134-434); RBC 2.43 M/mm3 (3.60-5.2); RDW 16.4 % (11.6-15.6); WHITE BLOOD COUNT 2.3 K/mm3 (4.0-10.0)
[2017-12-18 08:55] LABS: MCHC 35.1 g/dl (32.0-36.0)
[2017-12-18] MEDS ORDERED: DEXTROSE 5%-WATER 100 ML IVPB ONE (10:48)
[2017-12-18] MEDS: amLODIPine BESYLATE 10 MG TABLET (FP) PO SCH (10:55)
[2017-12-18] MEDS: CEFTRIAXONE 2 GM in DEXTROSE 5%-WATER 100 ML IVPB SCH (10:55)
[2017-12-18] MEDS: metoPROLOL SUCCINATE 25 MG TAB.SR.24H (FP) PO SCH (10:56)
[2017-12-18] MEDS: guaiFENesin/D-METHORPHAN HB 5 ML UNIT-DOSE CUPS PO PRN (10:56)
[2017-12-18] MEDS: INSULIN SLIDING SCALE (NOVOLOG) 1 VIAL SQ SCH ×2 (10:56→22:22)
[2017-12-18] MEDS: ARTIFICIAL TEARS (POLYVINYL ALCOHOL 1.4%) OPTH DROPS OU SCH ×2 (10:58→22:22)
--- NOTE | 2017-12-18 14:21 | PN ---
Physical Exam: SUBJECTIVE: Patient seen and examined No acute events overnight. Patient feels well this morning. OBJECTIVE: Vital Signs Period Temp Pulse Resp BP Sys/Rodrigues Pulse Ox Last 24 Hr 97.6 F-98.4 F 61-71 18-20 119-142/54-70 100 GENERAL: The patient is awake, alert, and fully oriented, in no acute distress HEAD: Normal with no signs of trauma. EYES: Extraocular movements intact, mild scleral icterus, conjunctiva clear. No ptosis. ENT: vascular lesion in left base of tongue, no pharyngeal erythema, mild tonsillar enlargement NECK: Trachea midline, full range of motion, supple. LUNGS: Breath sounds equal, clear to auscultation bilaterally, no wheezes, no crackles, no accessory muscle use. HEART: Regular rate, Regular rhythm, S1, S2 without murmur, rub or gallop. ABDOMEN: Soft, nontender, nondistended, normoactive bowel sounds, no guarding, no rebound, no hepatosplenomegaly, no masses. EXTREMITIES: 2+ pulses, warm, well-perfused, no edema. Laboratory Results - last 24 hr 12/12/17 12/15/17 12/16/17 06:20 06:00 06:00 WBC RBC Hgb Hct TNP MCV MCH MCHC RDW Plt Count MPV Neutrophils % Lymphocytes % Monocytes % Eosinophils % Basophils % POC Glucometer Folate TNP Folate Hemolysate 457.1 Cold Agglutinins Negative Complement C3 Complement C4 CMV IgG Ab > 10.00 H 12/17/17 12/17/17 12/18/17 06:40 22:45 06:00 WBC 2.3 L RBC 2.43 L Hgb 8.1 L Hct 23.0 L MCV 94.6 MCH 33.2 MCHC 35.1 RDW 16.4 H Plt Count 186 MPV 6.6 L Neutrophils % 58.0 Lymphocytes % 25.4 D Monocytes % 10.6 H Eosinophils % 4.8 H Basophils % 1.2 POC Glucometer 137 Folate Folate Hemolysate Cold Agglutinins Complement C3 107 Complement C4 19 CMV IgG Ab 12/18/17 10:55 WBC RBC Hgb Hct MCV MCH MCHC RDW Plt Count MPV Neutrophils % Lymphocytes % Monocytes % Eosinophils % Basophils % POC Glucometer 145 Folate Folate Hemolysate Cold Agglutinins Complement C3 Complement C4 CMV IgG Ab Active Medications Generic Name Dose Route Start Last Admin Trade Name Bud PRN Reason Stop Dose Admin Acetaminophen 650 mg 12/11/17 08:10 12/11/17 16:32 Tylenol - PO 650 mg Q4H PRN Administration FEVER Amlodipine Besylate 10 mg 12/10/17 12:00 12/18/17 10:55 Norvasc - PO 10 mg DAILY NEENA Administration Artificial Tears 1 drop 12/14/17 22:00 12/18/17 10:58 Artificial Tears OU 1 drp BID NEENA Administration Guaifenesin 10 ml 12/10/17 17:40 12/18/17 10:56 Guaifenesin Dm Syrup PO 10 ml Q8H PRN Administration COUGH Ceftriaxone Sodium 2 gm/ 100 mls @ 100 mls/hr 12/12/17 10:15 12/18/17 10:55 Dextrose IVPB 100 mls/hr DAILY NEENA Administration Insulin Aspart 1 vial 12/13/17 22:00 12/18/17 10:56 Novolog Vial Sliding Scale - SQ Not Given BID NEENA Protocol Metoprolol Succinate 25 mg 12/16/17 11:00 12/18/17 10:56 Toprol Xl - PO 25 mg DAILY NEENA Administration Senna/Docusate Sodium 2 tablet 12/17/17 22:00 12/17/17 22:47 Pericolace - PO 12/18/17 19:01 2 tablet HS NEENA Administration ASSESSMENT/PLAN: 67 year old F with pmh of HTN and DM presented from PCP's office with anemia and leukopenia #Strep Pneumo bacteremia and Strep viridans urine culture -Continue Ceftriaxone 2 g daily -Repeat blood cultures drawn on 12/12 -ID consulted, will discuss length of abx course, likely 10-14 days -Tylenol for fever #Hemolytic Anemia and Leukopenia, may be 2/2 to EBV+ -AUNDREA+ -BM Biopsy-- mild hypercellular marrow, flow negative, fish negative, trilinear hematopoeisis, no lymphoma -Parvovirus IGG + -EBV nuclear antigen + -Neutropenic precautions -GI Consult -Heme Consult -Rheum consult, ruling out SLE #Sigmoid mass on colonoscopy, -Biopsy: Invasive adenocarcinoma, moderately differentiated -Will wait until patient more stable to perform surgery -Heme/onc consulted -CEA elevated #Cardiomegaly -Echocardiogram impaired lv relaxation, EF 70%, LV size/thickness/fxn -Cardiology consulted #HTN -norvasc 10 po daily -monitor bp #Hyperglycemia, no longer diabetic -Bgm bid -iss bid #FEN/GI. PPx -No IVF -wnl -Full liquid -scd's Visit type - Emergency Visit Emergency Visit: Yes ED Registration Date: 12/07/17 Care time: The patient presented to the Emergency Department on the above date and was hospitalized for further evaluation of their emergent condition. - New Patient This patient is new to me today: No - Critical Care Critical Care patient: No
[2017-12-18 14:22] LABS: RNP ANTIBODIES <0.2 AI (0.0-0.9)
--- NOTE | 2017-12-18 14:28 | PN ---
Progress Note, Physician History of Present Illness: OOB in chair No complaints Denies dyspnea/ chest pain/ cough No c/o fever/ chills WBC recovering - Current Medication List Current Medications: Active Medications Acetaminophen (Tylenol -) 650 mg PO Q4H PRN PRN Reason: FEVER Last Admin: 12/11/17 16:32 Dose: 650 mg Amlodipine Besylate (Norvasc -) 10 mg PO DAILY [facility] Last Admin: 12/18/17 10:55 Dose: 10 mg Artificial Tears (Artificial Tears) 1 drop OU BID [facility] Last Admin: 12/18/17 10:58 Dose: 1 drp Guaifenesin (Guaifenesin Dm Syrup) 10 ml PO Q8H PRN PRN Reason: COUGH Last Admin: 12/18/17 10:56 Dose: 10 ml Ceftriaxone Sodium 2 gm/ (Dextrose) 100 mls @ 100 mls/hr IVPB DAILY [facility] Last Admin: 12/18/17 10:55 Dose: 100 mls/hr Insulin Aspart (Novolog Vial Sliding Scale -) 1 vial SQ BID [facility] PRN Reason: Protocol Last Admin: 12/18/17 10:56 Dose: Not Given Metoprolol Succinate (Toprol Xl -) 25 mg PO DAILY [facility] Last Admin: 12/18/17 10:56 Dose: 25 mg Senna/Docusate Sodium (Pericolace -) 2 tablet PO HS [facility] Stop: 12/18/17 19:01 Last Admin: 12/17/17 22:47 Dose: 2 tablet - Objective Vital Signs: Vital Signs Temperature 97.6 F 12/18/17 13:58 Pulse Rate 71 12/18/17 13:58 Respiratory Rate 20 12/18/17 13:58 Blood Pressure 142/57 12/18/17 13:58 O2 Sat by Pulse Oximetry (%) 100 12/17/17 22:00 Constitutional: Yes: No Distress Cardiovascular: Yes: Regular Rate and Rhythm, S1, S2 Respiratory: Yes: CTA Bilaterally Gastrointestinal: Yes: Normal Bowel Sounds, Soft. No: Tenderness Labs: CBC, BMP 12/18/17 06:00 12/16/17 06:00 INR, PTT INR 0.89 (0.82-1.09) 12/08/17 12:15 Fibrinogen 363.0 mg/dL (238-498) 12/07/17 21:10 Assessment/Plan Pneumococcal sepsis Leukopenia/ neutropenia- improved Hemolytic anemia Continue ceftriaxone
--- NOTE | 2017-12-18 15:15 | PN ---
Progress Note (short form) - Note Progress Note: Patient seen and examined no specific complaints Last Vital Signs Temp Pulse Resp BP Pulse Ox 97.6 F 71 20 142/57 100 12/18/17 13:58 12/18/17 13:58 12/18/17 13:58 12/18/17 13:58 12/17/17 22:00 Cor: RSR, No murmurs, No gallops Lungs: Clear to P&A Abd: Soft, Normal bowel sounds, No organomegaly Ext:No significant edema Abnormal Lab Results 12/12/17 12/18/17 06:20 06:00 WBC 2.3 L RBC 2.43 L Hgb 8.1 L Hct 23.0 L RDW 16.4 H MPV 6.6 L Monocytes % 10.6 H Eosinophils % 4.8 H CMV IgG Ab > 10.00 H Home Medication List Medication Instructions Recorded Confirmed Type NK [No Known Home Medication] 12/07/17 12/07/17 History Active Medications Generic Name Dose Route Start Last Admin Trade Name Freq PRN Reason Stop Dose Admin Acetaminophen 650 mg 12/11/17 08:10 12/11/17 16:32 Tylenol - PO 650 mg Q4H PRN Administration FEVER Amlodipine Besylate 10 mg 12/10/17 12:00 12/18/17 10:55 Norvasc - PO 10 mg DAILY NEENA Administration Artificial Tears 1 drop 12/14/17 22:00 12/18/17 10:58 Artificial Tears OU 1 drp BID NEENA Administration Guaifenesin 10 ml 12/10/17 17:40 12/18/17 10:56 Guaifenesin Dm Syrup PO 10 ml Q8H PRN Administration COUGH Ceftriaxone Sodium 2 gm/ 100 mls @ 100 mls/hr 12/12/17 10:15 12/18/17 10:55 Dextrose IVPB 100 mls/hr DAILY NEENA Administration Insulin Aspart 1 vial 12/13/17 22:00 12/18/17 10:56 Novolog Vial Sliding Scale - SQ Not Given BID NEENA Protocol Metoprolol Succinate 25 mg 12/16/17 11:00 12/18/17 10:56 Toprol Xl - PO 25 mg DAILY NEENA Administration Senna/Docusate Sodium 2 tablet 12/17/17 22:00 12/17/17 22:47 Pericolace - PO 12/18/17 19:01 2 tablet HS NEENA Administration 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 [place]+ leukopenia pneumococcal bacteremia On rocephin Leukopenia ? post infectious ?? autoimmune BMBX-mildly hypercellular with erythroid hyperplasia. nl trilineage hematopoiesis FISH/FLow neg. Slowly recovering Rheumatologic w/u ongoing Sigmoid adeno ca-- CT c/a/p--proximal sigmoid thickening , was neg. for nodes or metastases for resection once completes treatment for bacteremia and counts improved discussed with dr. hooks add miralax for constipation
--- NOTE | 2017-12-18 18:38 | PN ---
Teaching Attending Note Name of Resident: Jacob Paul ATTENDING PHYSICIAN STATEMENT I saw and evaluated the patient. I reviewed the resident's note and discussed the case with the resident. I agree with the resident's findings and plan as documented. SUBJECTIVE: no pain , or SOB ASSESSMENT AND PLAN: 67 y/o lady with h/o HTN and Dm who presented with anemia and leukopenia from PCP 's office 1- Acute hemolytic anemia: could be due to infection VS autoimmune . EVB nuclear antigen + , ? the cause 2- Leukopenia/neutropenia :? EBV infection 3- Strep pneumo bacteremia: unclear source. 4- UTI: strep viridance 5- HTN 6- [place] carcinoma of the sigmoid colon Plan: - EBV nuclear Ag +, this could explain the BM suppression and hemolytic anemia. SLE r/o by NL Jacqui , Hidalgo Abx and Ds DNA - cont ceftriaxone . duration to be determined - cont norvasc and toprol - A1c 1300 today - surgery for colon cancer when no longer neutropenic and after completion of Abx , probably as out pt - Dispo : duration of Abx will determine dispo plan . ? PICC
--- NOTE | 2017-12-19 09:08 | PN ---
Physical Exam: SUBJECTIVE: Patient seen and examined No acute events overnight. Patient feels well this morning. OBJECTIVE: Vital Signs Period Temp Pulse Resp BP Sys/Rodrigues Pulse Ox Last 24 Hr 97.4 F-98.4 F 62-73 18-20 121-142/54-64 98 GENERAL: The patient is awake, alert, and fully oriented, in no acute distress HEAD: Normal with no signs of trauma. EYES: Extraocular movements intact, mild scleral icterus, conjunctiva clear. No ptosis. ENT: vascular lesion in left base of tongue, no pharyngeal erythema, mild tonsillar enlargement NECK: Trachea midline, full range of motion, supple. LUNGS: Breath sounds equal, clear to auscultation bilaterally, no wheezes, no crackles, no accessory muscle use. HEART: Regular rate, Regular rhythm, S1, S2 without murmur, rub or gallop. ABDOMEN: Soft, nontender, nondistended, normoactive bowel sounds, no guarding, no rebound, no hepatosplenomegaly, no masses. EXTREMITIES: 2+ pulses, warm, well-perfused, no edema. Laboratory Results - last 24 hr 12/17/17 12/17/17 12/18/17 06:40 06:40 10:55 POC Glucometer 145 Sm ([place]) Antibody <0.2 EFFICIENCY ANALYST Antibody <0.2 Double Strand DNA Ab 1 12/18/17 22:18 POC Glucometer 170 Sm ([place]) Antibody EFFICIENCY ANALYST Antibody Double Strand DNA Ab Active Medications Generic Name Dose Route Start Last Admin Trade Name Freq PRN Reason Stop Dose Admin Acetaminophen 650 mg 12/11/17 08:10 12/11/17 16:32 Tylenol - PO 650 mg Q4H PRN Administration FEVER Amlodipine Besylate 10 mg 12/10/17 12:00 12/18/17 10:55 Norvasc - PO 10 mg DAILY NEENA Administration Artificial Tears 1 drop 12/14/17 22:00 12/18/17 22:22 Artificial Tears OU 1 drp BID NEENA Administration Guaifenesin 10 ml 12/10/17 17:40 12/18/17 10:56 Guaifenesin Dm Syrup PO 10 ml Q8H PRN Administration COUGH Ceftriaxone Sodium 2 gm/ 100 mls @ 100 mls/hr 12/12/17 10:15 12/18/17 10:55 Dextrose IVPB 100 mls/hr DAILY NEENA Administration Insulin Aspart 1 vial 12/13/17 22:00 12/18/17 22:22 Novolog Vial Sliding Scale - SQ 2 unit BID NEENA Administration Protocol Metoprolol Succinate 25 mg 12/16/17 11:00 12/18/17 10:56 Toprol Xl - PO 25 mg DAILY NEENA Administration Polyethylene Glycol 17 gm 12/19/17 10:00 Miralax (For Daily Use) - PO DAILY NEENA ASSESSMENT/PLAN: 67 year old F with pmh of HTN and DM presented from PCP's office with anemia and leukopenia #Strep Pneumo bacteremia and Strep viridans urine culture -Continue Ceftriaxone 2 g daily day 8 -Repeat blood cultures drawn on 12/12-- negative -ID consulted, will discuss length of abx course, likely 10-14 days -Tylenol for fever #Hemolytic Anemia and Leukopenia, may be 2/2 to EBV+ -AUNDREA+ -BM Biopsy-- mild hypercellular marrow, flow negative, fish negative, trilinear hematopoeisis, no lymphoma -Parvovirus IGG + -EBV nuclear antigen + -Neutropenic precautions -GI Consult -Heme Consult -Rheum consult, ruling out SLE #Sigmoid mass on colonoscopy, -Biopsy: Invasive adenocarcinoma, moderately differentiated -Will wait until patient more stable to perform surgery, likely will be done outpatient. -Heme/onc consulted -CEA elevated #Cardiomegaly -Echocardiogram impaired lv relaxation, EF 70%, LV size/thickness/fxn -Cardiology consulted #HTN -norvasc 10 po daily and toprol -monitor bp #Hyperglycemia, no longer diabetic -Bgm bid -iss bid #FEN/GI. PPx -No IVF -wnl -Full liquid -scd's Visit type - Emergency Visit Emergency Visit: Yes ED Registration Date: 12/07/17 Care time: The patient presented to the Emergency Department on the above date and was hospitalized for further evaluation of their emergent condition. - New Patient This patient is new to me today: No - Critical Care Critical Care patient: No
[2017-12-19 09:22] LABS: BASO % 0.8 % (0-2.0); EOS % 4.6 % (0-4.5); LYMPH % 27.4 % (8-40); MCH 33.1 pg (25.7-33.7); MCHC 34.9 g/dl (32.0-36.0); MEAN CELL VOLUME 94.7 fl (80-96); MEAN PLT VOLUME 6.4 fl (7.5-11.1); MONO % 9.2 % (3.8-10.2); PLATELET COUNT 184 K/MM3 (134-434); RBC 2.43 M/mm3 (3.60-5.2); RDW 16.3 % (11.6-15.6); WHITE BLOOD COUNT 2.3 K/mm3 (4.0-10.0)
--- NOTE | 2017-12-19 09:55 | PN ---
Progress Note (short form) - Note Progress Note: 67yo female admitted with leukopenia/neutropenia and anemia. CT scan identified a sigmoid colon mass. Currently, Problem List - Problems (1) Colonic mass Assessment/Plan: Patient has multiple medical problems at this time: 1. Leukopenia/neutropenia :? EBV infection 2 Strep pneumo bacteremia: unclear source. 3. UTI: strep viridance 4. Adeno carcinoma of the sigmoid colon --> elective sigmoid colon resection as out-patient AFTER above problems resolved. --> discussed with Dr. Castañeda and agrees Cont medical management Code(s): K63.9 - DISEASE OF INTESTINE, UNSPECIFIED (2) Bacteremia due to Streptococcus pneumoniae Code(s): R78.81 - BACTEREMIA
[2017-12-19] MEDS: INSULIN SLIDING SCALE (NOVOLOG) 1 VIAL SQ SCH ×2 (10:00→21:47)
[2017-12-19] MEDS ORDERED: DEXTROSE 5%-WATER 100 ML IVPB ONE (10:16)
[2017-12-19] MEDS: guaiFENesin/D-METHORPHAN HB 5 ML UNIT-DOSE CUPS PO PRN (10:56)
[2017-12-19] MEDS: CEFTRIAXONE 2 GM in DEXTROSE 5%-WATER 100 ML IVPB SCH (10:56)
[2017-12-19] MEDS: POLYETHYLENE GLYCOL 3350 119 GM BTL PO SCH (10:57)
[2017-12-19] MEDS: ARTIFICIAL TEARS (POLYVINYL ALCOHOL 1.4%) OPTH DROPS OU SCH ×2 (10:57→21:46)
[2017-12-19] MEDS: amLODIPine BESYLATE 10 MG TABLET (FP) PO SCH (10:57)
[2017-12-19] MEDS: metoPROLOL SUCCINATE 25 MG TAB.SR.24H (FP) PO SCH (10:57)
--- NOTE | 2017-12-19 12:03 | PN ---
Progress Note, Physician History of Present Illness: Afebrile on Rocephin, repeat cultures NGTD, neutropenia resolved, biopsy confirms sigmoid adenocarcinoma, denies hematochezia. - Current Medication List Current Medications: Active Medications Acetaminophen (Tylenol -) 650 mg PO Q4H PRN PRN Reason: FEVER Last Admin: 12/11/17 16:32 Dose: 650 mg Amlodipine Besylate (Norvasc -) 10 mg PO DAILY [facility] Last Admin: 12/19/17 10:57 Dose: 10 mg Artificial Tears (Artificial Tears) 1 drop OU BID NEENA Last Admin: 12/19/17 10:57 Dose: 1 drp Guaifenesin (Guaifenesin Dm Syrup) 10 ml PO Q8H PRN PRN Reason: COUGH Last Admin: 12/19/17 10:56 Dose: 10 ml Ceftriaxone Sodium 2 gm/ (Dextrose) 100 mls @ 100 mls/hr IVPB DAILY [facility] Last Admin: 12/19/17 10:56 Dose: 100 mls/hr Insulin Aspart (Novolog Vial Sliding Scale -) 1 vial SQ BID NEENA PRN Reason: Protocol Last Admin: 12/18/17 22:22 Dose: 2 unit Metoprolol Succinate (Toprol Xl -) 25 mg PO DAILY [facility] Last Admin: 12/19/17 10:57 Dose: 25 mg Polyethylene Glycol (Miralax (For Daily Use) -) 17 gm PO DAILY [facility] Last Admin: 12/19/17 10:57 Dose: 17 gm - Objective Vital Signs: Vital Signs Temperature 98.4 F 12/19/17 05:49 Pulse Rate 69 12/19/17 05:49 Respiratory Rate 20 12/19/17 05:49 Blood Pressure 134/63 12/19/17 05:49 O2 Sat by Pulse Oximetry (%) 98 12/18/17 21:00 Constitutional: Yes: No Distress, Calm Neck: Yes: Supple Cardiovascular: Yes: Regular Rate and Rhythm Respiratory: Yes: Regular, CTA Bilaterally Gastrointestinal: Yes: Normal Bowel Sounds, Soft Edema: No Labs: CBC, BMP 12/19/17 07:00 12/16/17 06:00 INR, PTT INR 0.89 (0.82-1.09) 12/08/17 12:15 Fibrinogen 363.0 mg/dL (238-498) 12/07/17 21:10 Problem List - Problems (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 - OTHER AUTOIMMUNE HEMOLYTIC ANEMIAS (2) Hypertension Code(s): I10 - ESSENTIAL (PRIMARY) HYPERTENSION Qualifiers: Hypertension type: essential hypertension Qualified Code(s): I10 - Essential (primary) hypertension (3) Leukopenia Code(s): D72.819 - DECREASED WHITE BLOOD CELL COUNT, UNSPECIFIED Qualifiers: Leukopenia type: neutropenia (4) Indirect hyperbilirubinemia Code(s): E80.6 - OTHER DISORDERS OF BILIRUBIN METABOLISM (5) Bacteremia due to Streptococcus pneumoniae Code(s): R78.81 - BACTEREMIA (6) Colonic mass Code(s): K63.9 - DISEASE OF INTESTINE, UNSPECIFIED Assessment/Plan 12/11/2017 Echo: Normal biventricular size and fxn, abnormal LV compliance, mild MR, TR 1. Pneumococcal bacteremia, resolving 2. Autoimmune hemolytic anemia post transfusion 3. Jaundice secondary to AIHA 4. Neutropenia, resolving 5. HTN 6. DM 7. Sigmoid colon adenocarcinoma PLAN: 1. Continue Norvasc 10 qd and Toprol XL 25 qd 2. Periodic transfusion as per hematology team 3. Plan for elective sigmoid colon resection as outpatient 4. Complete abx course
--- NOTE | 2017-12-19 12:51 | PN ---
Teaching Attending Note Name of Resident: Jacob Paul ATTENDING PHYSICIAN STATEMENT I saw and evaluated the patient. I reviewed the resident's note and discussed the case with the resident. I agree with the resident's findings and plan as documented. SUBJECTIVE: No complaints. OBJECTIVE: Vital Signs Period Temp Pulse Resp BP Sys/Rodrigues Pulse Ox Last 24 Hr 97.4 F-98.4 F 62-73 18-20 121-142/54-64 98 HEART: S1S2, RRR LUNGS: Clear ABDOMEN: Soft, non-tender, non-distended, normal BS EXTREMITIES: No edema Laboratory Results - last 24 hr 12/17/17 12/17/17 12/18/17 06:40 06:40 22:18 WBC RBC Hgb Hct MCV MCH MCHC RDW Plt Count MPV Neutrophils % Lymphocytes % Monocytes % Eosinophils % Basophils % POC Glucometer 170 Sm ([place]) Antibody <0.2 [employer] Antibody <0.2 Double Strand DNA Ab 1 12/19/17 12/19/17 07:00 09:54 WBC 2.3 L RBC 2.43 L Hgb 8.0 L Hct 23.0 L MCV 94.7 MCH 33.1 MCHC 34.9 RDW 16.3 H Plt Count 184 MPV 6.4 L Neutrophils % 58.0 Lymphocytes % 27.4 Monocytes % 9.2 Eosinophils % 4.6 H Basophils % 0.8 POC Glucometer 152 Sm ([place]) Antibody [employer] Antibody Double Strand DNA Ab Current Medications Generic Name Dose Route Start Last Admin Trade Name Freq PRN Reason Stop Dose Admin Acetaminophen 650 mg 12/11/17 08:10 12/11/17 16:32 Tylenol - PO 650 mg Q4H PRN Administration FEVER Amlodipine Besylate 10 mg 12/10/17 12:00 12/19/17 10:57 Norvasc - PO 10 mg DAILY NEENA Administration Artificial Tears 1 drop 12/14/17 22:00 12/19/17 10:57 Artificial Tears OU 1 drp BID NEENA Administration Guaifenesin 10 ml 12/10/17 17:40 12/19/17 10:56 Guaifenesin Dm Syrup PO 10 ml Q8H PRN Administration COUGH Ceftriaxone Sodium 2 gm/ 100 mls @ 100 mls/hr 12/12/17 10:15 12/19/17 10:56 Dextrose IVPB 100 mls/hr DAILY NEENA Administration Insulin Aspart 1 vial 12/13/17 22:00 12/19/17 10:00 Novolog Vial Sliding Scale - SQ 2 unit BID NEENA Administration Protocol Metoprolol Succinate 25 mg 12/16/17 11:00 12/19/17 10:57 Toprol Xl - PO 25 mg DAILY NEENA Administration Polyethylene Glycol 17 gm 12/19/17 10:00 12/19/17 10:57 Miralax (For Daily Use) - PO 17 gm DAILY NEENA Administration ASSESSMENT AND PLAN: This is a 67 year old woman with a history of HTN, type 2 DM who was sent to the ED by her PCP because of anemia, leukopenia. 1. Autoimmune hemolytic anemia - Transfused 2 units PRBCs - Hemoglobin stable 2. Leukopenia - WBC improving, remains neutropenic 3. Sepsis secondary to pneumococcal bacteremia - Afebrile - Continue Rocephin (day 8) 4. Adenocarcinoma of colon - Plan for resection after infection treated 5. HTN - Continue Norvasc, Toprol XL 6. Type 2 DM - Continue Novolog sliding scale
[2017-12-20 09:34] LABS: BASO % 0.9 % (0-2.0); EOS % 4.5 % (0-4.5); HEMATOCRIT 20.3 % (32.4-45.2); HEMOGLOBIN 7.1 GM/dL (10.7-15.3); LYMPH % 26.1 % (8-40); MCH 33.3 pg (25.7-33.7); MCHC 35.2 g/dl (32.0-36.0); MEAN CELL VOLUME 94.7 fl (80-96); MEAN PLT VOLUME 6.6 fl (7.5-11.1); MONO % 9.3 % (3.8-10.2); NEUT % 59.2 % (42.8-82.8); PLATELET COUNT 162 K/MM3 (134-434); RBC 2.15 M/mm3 (3.60-5.2); RDW 16.5 % (11.6-15.6); WHITE BLOOD COUNT 2.2 K/mm3 (4.0-10.0)
[2017-12-20] MEDS: INSULIN SLIDING SCALE (NOVOLOG) 1 VIAL SQ SCH ×2 (10:00→22:20)
[2017-12-20] MEDS ORDERED: DEXTROSE 5%-WATER 100 ML IVPB ONE (10:16)
[2017-12-20] MEDS: metoPROLOL SUCCINATE 25 MG TAB.SR.24H (FP) PO SCH (11:00)
[2017-12-20] MEDS: amLODIPine BESYLATE 10 MG TABLET (FP) PO SCH (11:00)
[2017-12-20] MEDS: CEFTRIAXONE 2 GM in DEXTROSE 5%-WATER 100 ML IVPB SCH (11:00)
[2017-12-20] MEDS: POLYETHYLENE GLYCOL 3350 119 GM BTL PO SCH (11:00)
[2017-12-20] MEDS: ARTIFICIAL TEARS (POLYVINYL ALCOHOL 1.4%) OPTH DROPS OU SCH ×2 (11:01→22:19)
--- NOTE | 2017-12-20 11:03 | PN ---
Progress Note, Physician History of Present Illness: Afebrile on Rocephin, repeat cultures NGTD, neutropenia resolved, biopsy confirms sigmoid adenocarcinoma, denies hematochezia. - Current Medication List Current Medications: Active Medications Acetaminophen (Tylenol -) 650 mg PO Q4H PRN PRN Reason: FEVER Last Admin: 12/11/17 16:32 Dose: 650 mg Amlodipine Besylate (Norvasc -) 10 mg PO DAILY [facility] Last Admin: 12/20/17 11:00 Dose: 10 mg Artificial Tears (Artificial Tears) 1 drop OU BID NEENA Last Admin: 12/20/17 11:01 Dose: 1 drp Guaifenesin (Guaifenesin Dm Syrup) 10 ml PO Q8H PRN PRN Reason: COUGH Last Admin: 12/19/17 10:56 Dose: 10 ml Ceftriaxone Sodium 2 gm/ (Dextrose) 100 mls @ 100 mls/hr IVPB DAILY [facility] Last Admin: 12/20/17 11:00 Dose: 100 mls/hr Insulin Aspart (Novolog Vial Sliding Scale -) 1 vial SQ BID NEENA PRN Reason: Protocol Last Admin: 12/20/17 10:00 Dose: 2 unit Metoprolol Succinate (Toprol Xl -) 25 mg PO DAILY [facility] Last Admin: 12/20/17 11:00 Dose: 25 mg Polyethylene Glycol (Miralax (For Daily Use) -) 17 gm PO DAILY [facility] Last Admin: 12/20/17 11:00 Dose: 17 gm - Objective Vital Signs: Vital Signs Temperature 98.1 F 12/20/17 08:41 Pulse Rate 70 12/20/17 08:41 Respiratory Rate 16 12/20/17 08:41 Blood Pressure 132/66 12/20/17 08:41 O2 Sat by Pulse Oximetry (%) 97 12/19/17 21:00 Constitutional: Yes: No Distress, Calm, Thin Neck: Yes: Supple Cardiovascular: Yes: Regular Rate and Rhythm Respiratory: Yes: Regular, CTA Bilaterally Gastrointestinal: Yes: Normal Bowel Sounds, Soft Edema: No Labs: CBC, BMP 12/20/17 06:00 12/16/17 06:00 INR, PTT INR 0.89 (0.82-1.09) 12/08/17 12:15 Fibrinogen 363.0 mg/dL (238-498) 12/07/17 21:10 Problem List - Problems (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 - OTHER AUTOIMMUNE HEMOLYTIC ANEMIAS (2) Hypertension Code(s): I10 - ESSENTIAL (PRIMARY) HYPERTENSION Qualifiers: Hypertension type: essential hypertension Qualified Code(s): I10 - Essential (primary) hypertension (3) Leukopenia Code(s): D72.819 - DECREASED WHITE BLOOD CELL COUNT, UNSPECIFIED Qualifiers: Leukopenia type: neutropenia (4) Indirect hyperbilirubinemia Code(s): E80.6 - OTHER DISORDERS OF BILIRUBIN METABOLISM (5) Bacteremia due to Streptococcus pneumoniae Code(s): R78.81 - BACTEREMIA (6) Colonic mass Code(s): K63.9 - DISEASE OF INTESTINE, UNSPECIFIED Assessment/Plan 12/11/2017 Echo: Normal biventricular size and fxn, abnormal LV compliance, mild MR, TR 1. Pneumococcal bacteremia, resolving 2. Autoimmune hemolytic anemia post transfusion EBV infection 3. Jaundice secondary to AIHA 4. Neutropenia EBV infecrion, resolving 5. HTN 6. DM 7. Sigmoid colon adenocarcinoma PLAN: 1. Continue Norvasc 10 qd and Toprol XL 25 qd 2. Periodic transfusion as per hematology team 3. Plan for elective sigmoid colon resection as outpatient 4. Complete abx course
--- NOTE | 2017-12-20 15:45 | PN ---
Progress Note, Physician History of Present Illness: OOB in chair No complaints Denies dyspnea/ chest pain/ cough No c/o fever/ chills - Current Medication List Current Medications: Active Medications Acetaminophen (Tylenol -) 650 mg PO Q4H PRN PRN Reason: FEVER Last Admin: 12/11/17 16:32 Dose: 650 mg Amlodipine Besylate (Norvasc -) 10 mg PO DAILY [facility] Last Admin: 12/20/17 11:00 Dose: 10 mg Artificial Tears (Artificial Tears) 1 drop OU BID NEENA Last Admin: 12/20/17 11:01 Dose: 1 drp Guaifenesin (Guaifenesin Dm Syrup) 10 ml PO Q8H PRN PRN Reason: COUGH Last Admin: 12/19/17 10:56 Dose: 10 ml Ceftriaxone Sodium 2 gm/ (Dextrose) 100 mls @ 100 mls/hr IVPB DAILY [facility] Last Admin: 12/20/17 11:00 Dose: 100 mls/hr Insulin Aspart (Novolog Vial Sliding Scale -) 1 vial SQ BID [facility] PRN Reason: Protocol Last Admin: 12/20/17 10:00 Dose: 2 unit Metoprolol Succinate (Toprol Xl -) 25 mg PO DAILY [facility] Last Admin: 12/20/17 11:00 Dose: 25 mg Polyethylene Glycol (Miralax (For Daily Use) -) 17 gm PO DAILY [facility] Last Admin: 12/20/17 11:00 Dose: 17 gm - Objective Vital Signs: Vital Signs Temperature 97.9 F 12/20/17 13:54 Pulse Rate 70 12/20/17 13:54 Respiratory Rate 20 12/20/17 13:54 Blood Pressure 134/72 12/20/17 13:54 O2 Sat by Pulse Oximetry (%) 97 12/19/17 21:00 Constitutional: Yes: No Distress Eyes: Yes: Conjunctiva Clear Cardiovascular: Yes: Regular Rate and Rhythm, S1, S2 Respiratory: Yes: CTA Bilaterally Gastrointestinal: Yes: Normal Bowel Sounds, Soft. No: Tenderness Edema: No Labs: CBC, BMP 12/20/17 06:00 12/16/17 06:00 INR, PTT INR 0.89 (0.82-1.09) 12/08/17 12:15 Fibrinogen 363.0 mg/dL (238-498) 12/07/17 21:10 Assessment/Plan Pneumococcal sepsis Leukopenia/ neutropenia- improved Hemolytic anemia Continue ceftriaxone additional 24hr, then substitute ceftin 500mg po bid x 4d
--- NOTE | 2017-12-20 16:31 | PN ---
Physical Exam: SUBJECTIVE: Patient seen and examined No acute events overnight. Patient feels well this morning. OBJECTIVE: Vital Signs Period Temp Pulse Resp BP Sys/Rodrigues Pulse Ox Last 24 Hr 97.9 F-99.5 F 69-83 16-20 114-150/53-72 97 GENERAL: The patient is awake, alert, and fully oriented, in no acute distress HEAD: Normal with no signs of trauma. EYES: Extraocular movements intact, mild scleral icterus, conjunctiva clear. No ptosis. ENT: vascular lesion in left base of tongue, no pharyngeal erythema, mild tonsillar enlargement NECK: Trachea midline, full range of motion, supple. LUNGS: Breath sounds equal, clear to auscultation bilaterally, no wheezes, no crackles, no accessory muscle use. HEART: Regular rate, Regular rhythm, S1, S2 without murmur, rub or gallop. ABDOMEN: Soft, nontender, nondistended, normoactive bowel sounds, no guarding, no rebound, no hepatosplenomegaly, no masses. EXTREMITIES: 2+ pulses, warm, well-perfused, no edema. Laboratory Results - last 24 hr 12/07/17 12/15/17 12/19/17 15:47 06:00 21:30 WBC RBC Hgb Hct MCV MCH MCHC RDW Plt Count MPV Neutrophils % Lymphocytes % Monocytes % Eosinophils % Basophils % POC Glucometer 193 Serum Cryoglobulins Crossmatch See Detail 12/20/17 12/20/17 06:00 10:28 WBC 2.2 L RBC 2.15 L Hgb 7.1 L D Hct 20.3 L MCV 94.7 MCH 33.3 MCHC 35.2 RDW 16.5 H Plt Count 162 MPV 6.6 L Neutrophils % 59.2 Lymphocytes % 26.1 Monocytes % 9.3 Eosinophils % 4.5 Basophils % 0.9 POC Glucometer 175 Serum Cryoglobulins Crossmatch Active Medications Generic Name Dose Route Start Last Admin Trade Name Freq PRN Reason Stop Dose Admin Acetaminophen 650 mg 12/11/17 08:10 12/11/17 16:32 Tylenol - PO 650 mg Q4H PRN Administration FEVER Amlodipine Besylate 10 mg 12/10/17 12:00 12/20/17 11:00 Norvasc - PO 10 mg DAILY NEENA Administration Artificial Tears 1 drop 12/14/17 22:00 12/20/17 11:01 Artificial Tears OU 1 drp BID NEENA Administration Guaifenesin 10 ml 12/10/17 17:40 12/19/17 10:56 Guaifenesin Dm Syrup PO 10 ml Q8H PRN Administration COUGH Ceftriaxone Sodium 2 gm/ 100 mls @ 100 mls/hr 12/12/17 10:15 12/20/17 11:00 Dextrose IVPB 100 mls/hr DAILY ENENA Administration Insulin Aspart 1 vial 12/13/17 22:00 12/20/17 10:00 Novolog Vial Sliding Scale - SQ 2 unit BID NEENA Administration Protocol Metoprolol Succinate 25 mg 12/16/17 11:00 12/20/17 11:00 Toprol Xl - PO 25 mg DAILY NEENA Administration Polyethylene Glycol 17 gm 12/19/17 10:00 12/20/17 11:00 Miralax (For Daily Use) - PO 17 gm DAILY NEENA Administration ASSESSMENT/PLAN: 67 year old F with pmh of HTN and DM presented from PCP's office with anemia and leukopenia #Strep Pneumo bacteremia and Strep viridans urine culture -Continue Ceftriaxone 2 g daily day 9. will get 1 more day of iv abx and then 4 days of PO outpatient. -Repeat blood cultures drawn on 12/12-- negative -ID consulted, will discuss length of abx course, likely 10-14 days -Tylenol for fever #Hemolytic Anemia and Leukopenia, may be 2/2 to EBV+ -AUNDREA+ -BM Biopsy-- mild hypercellular marrow, flow negative, fish negative, trilinear hematopoeisis, no lymphoma -Parvovirus IGG + -EBV nuclear antigen + -Neutropenic precautions -GI Consult -Heme Consult -Rheum consult, ruling out SLE #Sigmoid mass on colonoscopy, -Biopsy: Invasive adenocarcinoma, moderately differentiated -Will wait until patient more stable to perform surgery, likely will be done outpatient. -Heme/onc consulted -CEA elevated #Cardiomegaly -Echocardiogram impaired lv relaxation, EF 70%, LV size/thickness/fxn -Cardiology consulted #HTN -norvasc 10 po daily and toprol -monitor bp #Hyperglycemia, no longer diabetic -Bgm bid -iss bid #FEN/GI. PPx -No IVF -wnl -Full liquid -scd's Visit type - Emergency Visit Emergency Visit: Yes ED Registration Date: 12/07/17 Care time: The patient presented to the Emergency Department on the above date and was hospitalized for further evaluation of their emergent condition. - New Patient This patient is new to me today: No - Critical Care Critical Care patient: No
[2017-12-20] MEDS ORDERED: INSULIN (NOVOLOG) ASPART 100 UNITS/ML 10ML VIAL ONE (18:37)
--- NOTE | 2017-12-20 19:19 | PN ---
Teaching Attending Note Name of Resident: Jacob Paul ATTENDING PHYSICIAN STATEMENT I saw and evaluated the patient. I reviewed the resident's note and discussed the case with the resident. I agree with the resident's findings and plan as documented. SUBJECTIVE: No complaints. OBJECTIVE: Vital Signs Period Temp Pulse Resp BP Sys/Rodrigues Pulse Ox Last 24 Hr 97.9 F-98.7 F 69-83 16-20 114-150/53-72 97-100 HEART: S1S2, RRR LUNGS: Clear ABDOMEN: Soft, non-tender, non-distended, normal BS EXTREMITIES: No edema Laboratory Results - last 24 hr 12/07/17 12/15/17 12/19/17 15:47 06:00 21:30 WBC RBC Hgb Hct MCV MCH MCHC RDW Plt Count MPV Neutrophils % Lymphocytes % Monocytes % Eosinophils % Basophils % POC Glucometer 193 Serum Cryoglobulins Crossmatch See Detail 12/20/17 12/20/17 06:00 10:28 WBC 2.2 L RBC 2.15 L Hgb 7.1 L D Hct 20.3 L MCV 94.7 MCH 33.3 MCHC 35.2 RDW 16.5 H Plt Count 162 MPV 6.6 L Neutrophils % 59.2 Lymphocytes % 26.1 Monocytes % 9.3 Eosinophils % 4.5 Basophils % 0.9 POC Glucometer 175 Serum Cryoglobulins Crossmatch Current Medications Generic Name Dose Route Start Last Admin Trade Name Freq PRN Reason Stop Dose Admin Acetaminophen 650 mg 12/11/17 08:10 12/11/17 16:32 Tylenol - PO 650 mg Q4H PRN Administration FEVER Amlodipine Besylate 10 mg 12/10/17 12:00 12/20/17 11:00 Norvasc - PO 10 mg DAILY NEENA Administration Artificial Tears 1 drop 12/14/17 22:00 12/20/17 11:01 Artificial Tears OU 1 drp BID NEENA Administration Guaifenesin 10 ml 12/10/17 17:40 12/19/17 10:56 Guaifenesin Dm Syrup PO 10 ml Q8H PRN Administration COUGH Ceftriaxone Sodium 2 gm/ 100 mls @ 100 mls/hr 12/12/17 10:15 12/20/17 11:00 Dextrose IVPB 100 mls/hr DAILY NEENA Administration Insulin Aspart 1 vial 12/13/17 22:00 12/20/17 10:00 Novolog Vial Sliding Scale - SQ 2 unit BID NEENA Administration Protocol Metoprolol Succinate 25 mg 12/16/17 11:00 12/20/17 11:00 Toprol Xl - PO 25 mg DAILY NEENA Administration Polyethylene Glycol 17 gm 12/19/17 10:00 12/20/17 11:00 Miralax (For Daily Use) - PO 17 gm DAILY NEENA Administration ASSESSMENT AND PLAN: This is a 67 year old woman with a history of HTN, type 2 DM who was sent to the ED by her PCP because of anemia, leukopenia. 1. Autoimmune hemolytic anemia - Transfused 2 units PRBCs - Hemoglobin stable 2. Leukopenia - WBC stable - ANC improved to 1300 3. Sepsis secondary to pneumococcal bacteremia - Afebrile - Continue Rocephin (day 9/10) followed by Ceftin 500 mg bid x 4 days 4. Adenocarcinoma of colon - Plan for resection after infection treated 5. HTN - Continue Norvasc, Toprol XL 6. Type 2 DM - Continue Novolog sliding scale 7. Disposition - Expect discharge home tomorrow after completing course of IV Rocephin
[2017-12-21 08:29] LABS: BASO % 0.9 % (0-2.0); EOS % 4.4 % (0-4.5); HEMATOCRIT 20.4 % (32.4-45.2); HEMOGLOBIN 7.5 GM/dL (10.7-15.3); MCH 34.4 pg (25.7-33.7); MCHC 36.5 g/dl (32.0-36.0); MEAN CELL VOLUME 94.1 fl (80-96); MEAN PLT VOLUME 6.7 fl (7.5-11.1); MONO % 6.7 % (3.8-10.2); PLATELET COUNT 162 K/MM3 (134-434); RBC 2.17 M/mm3 (3.60-5.2); RDW 16.2 % (11.6-15.6); WHITE BLOOD COUNT 2.6 K/mm3 (4.0-10.0)
[2017-12-21] MEDS ORDERED: DEXTROSE 5%-WATER 100 ML IVPB ONE (09:02)
[2017-12-21] MEDS ORDERED: PT OWN MED DRAWER 7, Y5N ONE ×2 (09:10→10:10)
[2017-12-21] MEDS: metoPROLOL SUCCINATE 25 MG TAB.SR.24H (FP) PO SCH (09:55)
[2017-12-21] MEDS: amLODIPine BESYLATE 10 MG TABLET (FP) PO SCH (09:55)
[2017-12-21] MEDS: POLYETHYLENE GLYCOL 3350 119 GM BTL PO SCH (09:55)
[2017-12-21] MEDS: CEFTRIAXONE 2 GM in DEXTROSE 5%-WATER 100 ML IVPB SCH (09:55)
[2017-12-21] MEDS: ARTIFICIAL TEARS (POLYVINYL ALCOHOL 1.4%) OPTH DROPS OU SCH ×2 (09:56→23:02)
[2017-12-21] MEDS ORDERED: INSULIN (NOVOLOG) ASPART 100 UNITS/ML 10ML VIAL ONE (10:09)
[2017-12-21] MEDS: INSULIN SLIDING SCALE (NOVOLOG) 1 VIAL SQ SCH ×2 (10:19→23:02)
--- NOTE | 2017-12-21 11:10 | PN ---
Progress Note (short form) - Note Progress Note: Patient seen and examined Denies headache, diplopia, epistaxisdysphagia, chest pain, SOB, nausea, emesis, diarrhea, dysuria, hematuria Last Vital Signs Temp Pulse Resp BP Pulse Ox 98 F 64 18 114/60 97 12/21/17 05:00 12/21/17 05:00 12/21/17 05:00 12/21/17 05:00 12/20/17 21:00 HEENT: SOPHIA, EOM Intact Oropharynx: No thrush, No mucositis,edentulous Cor: RSR, No murmurs, No gallops Lungs: Clear to P&A Abd: Soft, Normal bowel sounds, No organomegaly Ext:No significant edema Skin: No rashes, Integument intact CBC, BMP 12/21/17 06:00 12/16/17 06:00 Current Medications Generic Name Dose Route Start Last Admin Trade Name Freq PRN Reason Stop Dose Admin Acetaminophen 650 mg 12/11/17 08:10 12/11/17 16:32 Tylenol - PO 650 mg Q4H PRN Administration FEVER Amlodipine Besylate 10 mg 12/10/17 12:00 12/21/17 09:55 Norvasc - PO 10 mg DAILY NEENA Administration Artificial Tears 1 drop 12/14/17 22:00 12/21/17 09:56 Artificial Tears OU 1 drp BID NEENA Administration Guaifenesin 10 ml 12/10/17 17:40 12/19/17 10:56 Guaifenesin Dm Syrup PO 10 ml Q8H PRN Administration COUGH Ceftriaxone Sodium 2 gm/ 100 mls @ 100 mls/hr 12/12/17 10:15 12/21/17 09:55 Dextrose IVPB 100 mls/hr DAILY NEENA Administration Insulin Aspart 1 vial 12/13/17 22:00 12/21/17 10:19 Novolog Vial Sliding Scale - SQ 2 unit BID NEENA Administration Protocol Metoprolol Succinate 25 mg 12/16/17 11:00 12/21/17 09:55 Toprol Xl - PO 25 mg DAILY NEENA Administration Polyethylene Glycol 17 gm 12/19/17 10:00 12/21/17 09:55 Miralax (For Daily Use) - PO 17 gm DAILY NEENA Administration Impression: Pneumococcal bacteremia Neutropenia-? secondary to bacteremia, ? autoimmune, ? other Anemia- normal B-12,folate, TFT's, negative cold agglutinins and negative cryoglobulins EBV+ HBP Colon ca- for planned surgery Plan: Hct has decreased minimally from 23% to 20%. [place] positive although last labs on 12/15 with retic of 0.78, and normal LDH;-- -> against hemolysis (Initial retic >9%, and elevated LDH and low haptoglobin on 12/07- all suggestive of hemolysis) Will repeat hemolytic work up ; If negative would transfuse packed cells;If positive-steroids Would give IV Venofer with Fe++ sat of 14% and ow normal ferritin Will order anti-neutrophil antibodies
[2017-12-21 13:16] LABS: ALBUMIN 3.7 g/dl (3.4-5.0); ALK PHOS 91 U/L (45-117); ANION GAP 7 (8-16); BILIRUBIN,TOTAL 0.8 mg/dL (0.2-1.0); BLOOD UREA NITROGEN 18 mg/dL (7-18); CALCIUM 8.4 mg/dL (8.5-10.1); CHLORIDE 104 mmol/L (98-107); CO2 25 mmol/L (21-32); CREATININE 0.9 mg/dL (0.55-1.02); GLUCOSE,RANDOM 119 mg/dL (74-106); LDH 218 U/L (84-246); POTASSIUM 4.4 mmol/L (3.5-5.1); SGOT/AST 17 U/L (15-37); SGPT/ALT 15 U/L (12-78); SODIUM 136 mmol/L (136-145)
[2017-12-21 14:15] LABS: BASO % 0.8 % (0-2.0); EOS % 2.8 % (0-4.5); HEMATOCRIT 22.1 % (32.4-45.2); MCH 33.9 pg (25.7-33.7); MEAN CELL VOLUME 94.3 fl (80-96); MEAN PLT VOLUME 6.7 fl (7.5-11.1); MONO % 4.8 % (3.8-10.2); NEUT % 74.6 % (42.8-82.8); PLATELET COUNT 182 K/MM3 (134-434); RBC 2.35 M/mm3 (3.60-5.2); RDW 16.5 % (11.6-15.6); WHITE BLOOD COUNT 3.5 K/mm3 (4.0-10.0)
[2017-12-21 14:23] LABS: RETICULOCYTES 2.53 % (0.5-1.5)
--- NOTE | 2017-12-21 15:50 | PN ---
Teaching Attending Note Name of Resident: Jacob Paul ATTENDING PHYSICIAN STATEMENT I saw and evaluated the patient. I reviewed the resident's note and discussed the case with the resident. I agree with the resident's findings and plan as documented. SUBJECTIVE: Patient continues to feel well. OBJECTIVE: Last Vital Signs Temp Pulse Resp BP Pulse Ox 97.8 F 72 18 132/54 100 12/21/17 13:50 12/21/17 13:50 12/21/17 13:50 12/21/17 13:50 12/21/17 08:40 Appears comfortable, sitting up in a chair chest clear heart rr no M abd soft NT extrem no edema, nt Laboratory Results - last 24 hr 12/20/17 12/21/17 12/21/17 22:17 06:00 09:57 WBC 2.6 L RBC 2.17 L Hgb 7.5 L Hct 20.4 L MCV 94.1 MCH 34.4 H MCHC 36.5 H RDW 16.2 H Plt Count 162 MPV 6.7 L Neutrophils % 63.0 Lymphocytes % 25.0 Monocytes % 6.7 Eosinophils % 4.4 Basophils % 0.9 Retic Count Sodium Potassium Chloride Carbon Dioxide Anion Gap BUN Creatinine Creat Clearance w eGFR POC Glucometer 194 173 Random Glucose Calcium Total Bilirubin AST ALT Alkaline Phosphatase LD Total Total Protein Albumin Blood Type Antibody Screen Crossmatch 12/21/17 12/21/17 12/21/17 12:20 12:20 12:20 WBC 3.5 L D RBC 2.35 L Hgb 8.0 L Hct 22.1 L MCV 94.3 MCH 33.9 H MCHC 36.0 RDW 16.5 H Plt Count 182 MPV 6.7 L Neutrophils % 74.6 Lymphocytes % 17.0 D Monocytes % 4.8 Eosinophils % 2.8 Basophils % 0.8 Retic Count 2.53 H D Sodium 136 Potassium 4.4 Chloride 104 Carbon Dioxide 25 Anion Gap 7 L BUN 18 Creatinine 0.9 Creat Clearance w eGFR > 60 POC Glucometer Random Glucose 119 H Calcium 8.4 L Total Bilirubin 0.8 D AST 17 ALT 15 Alkaline Phosphatase 91 LD Total 218 Total Protein 7.0 Albumin 3.7 Blood Type O POSITIVE Antibody Screen Negative Crossmatch See Detail ASSESSMENT AND PLAN: Anemia stable, with Hb 8.0 this am, hematology requested 1 unit PRBC prior to discharge Neutropenia resolved, WBC this am continues to rise, now 3.5, ANC now 2600 Sepsis has been treated with IV antibiotics for 10 days, patient is stable for discharge on po ceftin to complete 14 day course Follow up scheduled with Dr. Cronin to evaluate the colon cancer for possible surgery, next Sunday in the office.
--- NOTE | 2017-12-21 16:51 | DS ---
Physical Exam: Microbiology 12/11/17 06:40 Blood - Peripheral Venous Blood Culture - Final Streptococcus Pneumoniae Selected Entries 12/07/17 12/07/17 12/08/17 14:55 23:17 14:05 Temperature 99.1 F 100.2 F H 100.7 F H Pulse Rate Respiratory Rate Blood Pressure O2 Sat by Pulse Oximetry (%) Oxygen Delivery Method 12/08/17 12/11/17 12/11/17 14:10 06:00 09:00 Temperature 100.2 F H 102.9 F H 102.9 F H Pulse Rate 119 H 100 H Respiratory Rate Blood Pressure O2 Sat by Pulse Oximetry (%) Oxygen Delivery Method 12/11/17 12/21/17 12/21/17 16:58 08:40 17:01 Temperature 100.9 F H 98.0 F Pulse Rate 74 Respiratory 18 Rate Blood Pressure 134/65 O2 Sat by Pulse 97 Oximetry (%) Oxygen Delivery Room Air Method Laboratory Tests 12/07/17 12/07/17 12/07/17 15:42 15:47 15:47 WBC 2.5 L Hgb 5.7 L* Hct 16.3 L Neutrophils % ESR Retic Count 9.62 H Haptoglobin Sodium Potassium Chloride Carbon Dioxide Anion Gap BUN Creatinine Creat Clearance w eGFR Random Glucose Hemoglobin A1c % Calcium Iron TIBC Iron Saturation Ferritin Total Bilirubin 2.2 H Direct Bilirubin LD Total C-Reactive Protein Lipase 123 Vitamin B12 [address] [facility] 12/07/17 12/07/17 12/07/17 16:43 16:43 16:43 WBC Hgb Hct Neutrophils % ESR Retic Count Haptoglobin Sodium Potassium Chloride Carbon Dioxide Anion Gap BUN Creatinine Creat Clearance w eGFR Random Glucose Hemoglobin A1c % Calcium Iron 34 TIBC 247 L Iron Saturation 14 L Ferritin 25.638 Total Bilirubin Direct Bilirubin LD Total C-Reactive Protein Lipase Vitamin B12 [address] [facility] 12/07/17 12/07/17 12/07/17 18:59 18:59 18:59 WBC Hgb Hct Neutrophils % ESR Retic Count Haptoglobin 10 L Sodium Potassium Chloride Carbon Dioxide Anion Gap BUN Creatinine Creat Clearance w eGFR Random Glucose Hemoglobin A1c % Calcium Iron TIBC Iron Saturation Ferritin Total Bilirubin Direct Bilirubin 0.3 H LD Total 323 H C-Reactive Protein Lipase Vitamin B12 F[address] [facility] 12/07/17 12/08/17 12/08/17 21:10 12:15 12:15 WBC 2.3 L Hgb 8.9 L D Hct 14.0 L* 24.7 L D Neutrophils % ESR Retic Count Haptoglobin Sodium Potassium Chloride Carbon Dioxide Anion Gap BUN Creatinine Creat Clearance w eGFR Random Glucose Hemoglobin A1c % Calcium Iron TIBC Iron Saturation Ferritin Total Bilirubin 2.6 H Direct Bilirubin LD Total 366 H C-Reactive Protein Lipase Vitamin B12 Folate 2619 Folate Hemolysate 366.6 TSH 0.59 12/08/17 12/08/17 12/09/17 12:15 12:15 06:35 WBC 1.7 L* Hgb 8.0 L D Hct 22.8 L Neutrophils % ESR Retic Count 6.80 H D Haptoglobin Sodium Potassium Chloride Carbon Dioxide Anion Gap BUN Creatinine Creat Clearance w eGFR Random Glucose Hemoglobin A1c % Calcium Iron TIBC Iron Saturation Ferritin Total Bilirubin Direct Bilirubin 0.5 H LD Total C-Reactive Protein Lipase Vitamin B12 [address] [facility] 12/09/17 12/09/17 12/10/17 06:35 06:35 06:52 WBC 1.8 L* Hgb 10.0 L D Hct 29.3 L D Neutrophils % ESR Retic Count Haptoglobin Sodium Potassium Chloride Carbon Dioxide Anion Gap BUN Creatinine Creat Clearance w eGFR Random Glucose Hemoglobin A1c % Calcium Iron TIBC Iron Saturation Ferritin Total Bilirubin 1.1 H D Direct Bilirubin 0.3 H LD Total C-Reactive Protein 2.1 H Lipase 101 Vitamin B12 F[address] [facility] 12/10/17 12/11/17 12/12/17 06:52 06:00 06:20 WBC 3.9 L D 4.3 Hgb 9.4 L 8.0 L D Hct 27.3 L 23.7 L Neutrophils % ESR Retic Count Haptoglobin Sodium Potassium Chloride Carbon Dioxide Anion Gap BUN Creatinine Creat Clearance w eGFR Random Glucose Hemoglobin A1c % Calcium Iron TIBC Iron Saturation Ferritin Total Bilirubin 1.1 H Direct Bilirubin 0.3 H LD Total 336 H C-Reactive Protein Lipase Vitamin B12 [address] [facility] 12/13/17 12/13/17 12/13/17 06:30 06:30 06:30 WBC 2.5 L D Hgb 7.8 L Hct 22.2 L Neutrophils % ESR Retic Count 1.07 D Haptoglobin Sodium Potassium Chloride Carbon Dioxide Anion Gap BUN Creatinine Creat Clearance w eGFR Random Glucose Hemoglobin A1c % 5.2 Calcium Iron TIBC Iron Saturation Ferritin Total Bilirubin Direct Bilirubin LD Total C-Reactive Protein Lipase Vitamin B12 [address] [facility] 12/14/17 12/15/17 12/15/17 06:30 06:00 06:00 WBC 1.6 L* D 1.5 L* Hgb 7.5 L 7.4 L Hct 21.4 L 21.3 L Neutrophils % ESR Retic Count 0.78 D Haptoglobin Sodium Potassium Chloride Carbon Dioxide Anion Gap BUN Creatinine Creat Clearance w eGFR Random Glucose Hemoglobin A1c % Calcium Iron TIBC Iron Saturation Ferritin Total Bilirubin Direct Bilirubin LD Total C-Reactive Protein Lipase Vitamin B12 [address] [facility] 12/16/17 12/17/17 12/17/17 06:00 06:40 06:40 WBC 1.7 L* 2.0 L Hgb 7.4 L 7.9 L Hct 21.1 L 22.4 L Neutrophils % ESR 39 H Retic Count Haptoglobin Sodium Potassium Chloride Carbon Dioxide Anion Gap BUN Creatinine Creat Clearance w eGFR Random Glucose Hemoglobin A1c % Calcium Iron TIBC Iron Saturation Ferritin Total Bilirubin Direct Bilirubin LD Total C-Reactive Protein Lipase Vitamin B12 F[address] [facility] 12/18/17 12/19/17 12/20/17 06:00 07:00 06:00 WBC 2.3 L 2.3 L 2.2 L Hgb 8.1 L 8.0 L 7.1 L D Hct 23.0 L 23.0 L 20.3 L Neutrophils % ESR Retic Count Haptoglobin Sodium Potassium Chloride Carbon Dioxide Anion Gap BUN Creatinine Creat Clearance w eGFR Random Glucose Hemoglobin A1c % Calcium Iron TIBC Iron Saturation Ferritin Total Bilirubin Direct Bilirubin LD Total C-Reactive Protein Lipase Vitamin B12 F[address] [facility] 12/21/17 12/21/17 12/21/17 06:00 12:20 12:20 WBC 2.6 L 3.5 L D Hgb 7.5 L 8.0 L Hct 20.4 L 22.1 L Neutrophils % 74.6 ESR Retic Count 2.53 H D Haptoglobin Sodium 136 Potassium 4.4 Chloride 104 Carbon Dioxide 25 Anion Gap 7 L BUN 18 Creatinine 0.9 Creat Clearance w eGFR > 60 Random Glucose 119 H Hemoglobin A1c % Calcium 8.4 L Iron TIBC Iron Saturation Ferritin Total Bilirubin Direct Bilirubin LD Total C-Reactive Protein Lipase Vitamin B12 F[address] [facility] 04/27/18 12:20 WBC Hgb Hct Neutrophils % ESR Retic Count Haptoglobin 41 Sodium Potassium Chloride Carbon Dioxide Anion Gap BUN Creatinine Creat Clearance w eGFR Random Glucose Hemoglobin A1c % Calcium Iron TIBC Iron Saturation Ferritin Total Bilirubin Direct Bilirubin LD Total C-Reactive Protein Lipase Vitamin B12 Folate Folate Hemolysate TSH Laboratory Tests 12/07/17 12/07/17 12/07/17 15:45 15:47 18:59 Urine Urobilinogen 4.0 e.u/dl H Stool Occult Blood Negative IgG IgA IgM Total Protein (DEBORAH) Albumin (DEBORAH) Albumin/Globulin (DEBORAH) Mwkiz-3-Vlshvygbv DEBORAH Azcov-3-Pvkogfeqd [place]AH Gamma Globulins (DEBORAH) IEP IgG IEP IgA IEP IgM Serum Cryoglobulins Cold Agglutinins ANDREA Screen c-ANCA Proteinase 3 (PR3) p-ANCA Atypical p-ANCA Myeloperoxidase Ab Sm ([place]) Antibody [employer] Antibody Double Strand DNA Ab Complement C3 Complement C4 Tot Complement (CH50) CMV IgG Ab CMV IgM Ab EBV Nuclear Antigen Hepatitis A IgM Ab Negative Hep Bs Antigen Negative Hep B Core IgM Ab Negative Hep C Ab Diagnostic <0.1 Hepatitis C Antibody <0.1 HIV 1&2 Antibody Screen HIV P24 Antigen Parvovirus B19 IgG Ab Parvovirus B19 IgM Ab TB Test (QFT) 12/07/17 12/08/17 12/09/17 18:59 12:15 06:35 Urine Urobilinogen Stool Occult Blood IgG 872 IgA 142 IgM 71 Total Protein (DEBORAH) 6.3 Albumin (DEBORAH) 3.4 Albumin/Globulin (DEBORAH) 1.2 Uxnse-6-Sgsmmrfud DEB[place]AH 0.3 Zcais-6-Kfjgzanto DEBORAH 0.6 Gamma Globulins (DEBORAH) 1.2 IEP IgG 976 IEP IgA 155 IEP IgM 75 Serum Cryoglobulins Cold Agglutinins Negative ANDREA Screen Negative c-ANCA Proteinase 3 (PR3) p-ANCA Atypical p-ANCA Myeloperoxidase Ab Sm ([place]) Antibody [employer] Antibody Double Strand DNA Ab Complement C3 Complement C4 Tot Complement (CH50) CMV IgG Ab CMV IgM Ab EBV Nuclear Antigen Hepatitis A IgM Ab Hep Bs Antigen Hep B Core IgM Ab Hep C Ab Diagnostic Hepatitis C Antibody HIV 1&2 Antibody Screen Negative HIV P24 Antigen Negative Parvovirus B19 IgG Ab Parvovirus B19 IgM Ab TB Test (QFT) 12/10/17 12/12/17 12/12/17 10:00 06:20 06:20 Urine Urobilinogen Stool Occult Blood Negative IgG IgA IgM Total Protein (DEBORAH) Albumin (DEBORAH) Albumin/Globulin (DEBORAH) Tolml-0-Niznmoaiv [place]AH Omrfg-9-Imdsuevod [place]AH Gamma Globulins (DEBORAH) IEP IgG IEP IgA IEP IgM Serum Cryoglobulins Cold Agglutinins ANDREA Screen c-ANCA Proteinase 3 (PR3) p-ANCA Atypical p-ANCA Myeloperoxidase Ab Sm ([place]) Antibody [employer] Antibody Double Strand DNA Ab Complement C3 Complement C4 Tot Complement (CH50) CMV IgG Ab > 10.00 H CMV IgM Ab < 30.0 EBV Nuclear Antigen Hepatitis A IgM Ab Hep Bs Antigen Hep B Core IgM Ab Hep C Ab Diagnostic Hepatitis C Antibody HIV 1&2 Antibody Screen HIV P24 Antigen Parvovirus B19 IgG Ab 7.3 H Parvovirus B19 IgM Ab 0.2 TB Test (QFT) Negative 12/13/17 12/15/17 12/16/17 06:30 06:00 06:00 Urine Urobilinogen Stool Occult Blood IgG IgA IgM Total Protein (DEBORAH) Albumin (DEBORAH) Albumin/Globulin (DEBORAH) Yymlb-5-Efdxvefpg [place]AH Dpltz-5-Jppsdmljh [place] Gamma Globulins (DEB[place]AH) IEP IgG IEP IgA IEP IgM Serum Cryoglobulins Cold Agglutinins Negative ANDREA Screen c-ANCA Proteinase 3 (PR3) p-ANCA Atypical p-ANCA Myeloperoxidase Ab Sm ([place]) Antibody [employer] Antibody Double Strand DNA Ab Complement C3 Complement C4 Tot Complement (CH50) 31 L CMV IgG Ab CMV IgM Ab EBV Nuclear Antigen >600.0 H Hepatitis A IgM Ab Hep Bs Antigen Hep B Core IgM Ab Hep C Ab Diagnostic Hepatitis C Antibody HIV 1&2 Antibody Screen HIV P24 Antigen Parvovirus B19 IgG Ab Parvovirus B19 IgM Ab TB Test (QFT) 12/16/17 12/17/17 12/17/17 20:10 06:40 06:40 Urine Urobilinogen 4.0 e.u/dl H Stool Occult Blood IgG IgA IgM Total Protein (DEBORAH) Albumin (DEBORAH) Albumin/Globulin (DEBORAH) Tikvu-5-Fyyshaauw DEBORAH Iebji-6-Sduxwxozu [place]AH Gamma Globulins (DEBORAH) IEP IgG IEP IgA IEP IgM Serum Cryoglobulins Cold Agglutinins ANDREA Screen c-ANCA Proteinase 3 (PR3) p-ANCA Atypical p-ANCA Myeloperoxidase Ab Sm ([place]) Antibody <0.2 [employer] Antibody <0.2 Double Strand DNA Ab 1 Complement C3 107 Complement C4 19 Tot Complement (CH50) CMV IgG Ab CMV IgM Ab EBV Nuclear Antigen Hepatitis A IgM Ab Hep Bs Antigen Hep B Core IgM Ab Hep C Ab Diagnostic Hepatitis C Antibody HIV 1&2 Antibody Screen HIV P24 Antigen Parvovirus B19 IgG Ab Parvovirus B19 IgM Ab TB Test (QFT) 12/21/17 12:20 Urine Urobilinogen Stool Occult Blood IgG IgA IgM Total Protein (DEBORAH) Albumin (DEBORAH) Albumin/Globulin (DBEORAH) Clobd-9-Coukoupqm DEBORAH Cdenj-3-Uwchvjewb DEB[place]AH Gamma Globulins (DEBORAH) IEP IgG IEP IgA IEP IgM Serum Cryoglobulins Cold Agglutinins ANDREA Screen c-ANCA Pending Proteinase 3 (PR3) Pending p-ANCA Pending Atypical p-ANCA Pending Myeloperoxidase Ab Pending Sm ([place]) Antibody [employer] Antibody Double Strand DNA Ab Complement C3 Complement C4 Tot Complement (CH50) CMV IgG Ab CMV IgM Ab EBV Nuclear Antigen Hepatitis A IgM Ab Hep Bs Antigen Hep B Core IgM Ab Hep C Ab Diagnostic Hepatitis C Antibody HIV 1&2 Antibody Screen HIV P24 Antigen Parvovirus B19 IgG Ab Parvovirus B19 IgM Ab TB Test (QFT) Microbiology 12/12/17 10:07 Blood - Peripheral Venous Blood Culture - Final NO GROWTH AFTER 5 DAYS INCUBATION 12/12/17 09:10 Blood - Peripheral Venous Blood Culture - Final NO GROWTH AFTER 5 DAYS INCUBATION 12/11/17 13:12 Serum Mycoplasma Antibody - Final 12/11/17 06:55 Urine - Urine Clean Catch Urine Culture - Final Streptococcus Viridans Diphtheroid/Corynebacterium 12/11/17 06:45 Blood - Peripheral Venous Blood Culture - Final Streptococcus Pneumoniae IMAGING CXR- A single apical lordotic view reveals a large heart, unfolded aorta and prominent hilar markings. An acute chest process is not seen. The angles are sharp. The bones and soft tissues are intact. Correlation recommended. No comparison studies are available at this time. Abdomen u/s- Real time examination of the abdomen demonstrates the following: The gallbladder is normal in size and does contain a small calculus. There is no evidence of intra or extrahepatic biliary duct dilatation. The liver is normal in size. It is slightly heterogeneous in texture with no intrahepatic masses seen. Hepatopedal flow is documented within the main portal vein. The pancreas is normal in size and texture with no pancreatic masses identified. The tail of the pancreas was not completely visualized due to overlying bowel gas. The spleen is not enlarged. There is no evidence of hydronephrosis or acute renal abnormalities. There is no evidence of AAA. The IVC is patent. IMPRESSION: Cholelithiasis and mild heterogeneity of the liver. There is no evidence of hepatosplenomegaly or acute pathology. CT abd/pelvis- Sequential axial images were obtained from the thoracic inlet through the symphysis pubis following the administration of both oral and intravenous contrast material. Examination of the mediastinum demonstrates no evidence of mediastinal masses, fluid collections or lymphadenopathy. The heart is enlarged. There is a hiatal hernia in the retrocardiac space. The lung armstrong are free of pulmonary masses, areas of acute consolidation or pleural effusions. No discrete pulmonary nodules are present. The liver, spleen, pancreas, adrenal glands and kidneys demonstrate no significant abnormalities. There is no evidence of intra-abdominal or retroperitoneal lymphadenopathy or fluid collections. There is no evidence of pneumoperitoneum, bowel obstruction or intra-abdominal abscess. There is no CT evidence of acute appendicitis or diverticulitis. There is thickening and irregularity of the proximal sigmoid colon with marked narrowing of the lumen. This appearance is suspicious for a malignancy and colonoscopic follow-up is now recommended. Examination of the pelvis demonstrates no evidence of pelvic masses, fluid collections or lymphadenopathy. There is no evidence of bony metastases or acute abnormalities. IMPRESSION: 1. Cardiomegaly with no evidence of pulmonary nodules , mediastinal lymphadenopathy or acute pathology within the chest. 2. Thickening and irregularity of the proximal sigmoid colon suspicious for a colonic malignancy. Colonoscopic follow-up recommended. 3. No evidence of significant lymphadenopathy within the abdomen or pelvis. Please see above discussion. chest ct- Sequential axial images were obtained from the thoracic inlet through the symphysis pubis following the administration of both oral and intravenous contrast material. Examination of the mediastinum demonstrates no evidence of mediastinal masses, fluid collections or lymphadenopathy. The heart is enlarged. There is a hiatal hernia in the retrocardiac space. The lung armstrong are free of pulmonary masses, areas of acute consolidation or pleural effusions. No discrete pulmonary nodules are present. The liver, spleen, pancreas, adrenal glands and kidneys demonstrate no significant abnormalities. There is no evidence of intra-abdominal or retroperitoneal lymphadenopathy or fluid collections. There is no evidence of pneumoperitoneum, bowel obstruction or intra-abdominal abscess. There is no CT evidence of acute appendicitis or diverticulitis. There is thickening and irregularity of the proximal sigmoid colon with marked narrowing of the lumen. This appearance is suspicious for a malignancy and colonoscopic follow-up is now recommended. Examination of the pelvis demonstrates no evidence of pelvic masses, fluid collections or lymphadenopathy. There is no evidence of bony metastases or acute abnormalities. IMPRESSION: 1. Cardiomegaly with no evidence of pulmonary nodules , mediastinal lymphadenopathy or acute pathology within the chest. 2. Thickening and irregularity of the proximal sigmoid colon suspicious for a colonic malignancy. Colonoscopic follow-up recommended. 3. No evidence of significant lymphadenopathy within the abdomen or pelvis. Please see above discussion. HIDA- There is normal homogeneous perfusion of the liver with no evidence of focal lesion. Extraction of tracer from the blood pool by the liver parenchyma is normal. Tracer appears promptly and within the biliary tree. The gallbladder begins to fill by 10 minutes post injection of tracer and fill adequately. Minimal tracer seen in the small bowel after 60 minutes of imaging. IMPRESSION: Filling of the gallbladder excludes acute cystic duct obstruction. Delayed biliary enteric transit of tracer is nonspecific and could be secondary to biliary dyskinesia or secondary to administration of intravenous pain medicine such as morphine which can cause ampullary contraction. ECHO- impaired lv relaxation, normal lv fxn, ef 70 % HOSPITAL COURSE: Date of Admission:12/07/17 Date of Discharge: 12/21/17 67 year old F with pmh of HTN and DM presented from PCP's office with anemia and leukopenia admitted for further workup. While here, patient had multiple medical issues addressed. #Acute hemolytic anemia Direct jose positive. Workup otherwise negative. EBV+ nuclear ag and parvovirus igg +. Anemia improved after prbc and was stable during admission #Strep pneumo bacteremia -Patient treated with 10 days of IV ceftriaxone. she will be transitioned to po abx outpatient for 4 more days. Repeat bcx were negative #Leukopenia Workup otherwise negative. EBV+ nuclear ag and parvovirus igg +. Likely 2/2 to bacteremia. Leukopenia improving upon discharge. ANC fluctuated during stay, but was above 1.5 on discharge #Adenocarcinoma of the sigmoid colon Found to have sigmoid colon thickening on CT abd/pelvis and underwent colonoscopy. Patient found to have adenocarcinoma moderately differentiated on biopsy. Patient will f/u with surgery outpt once her blood counts normalize for surgery evaluation. Minutes to complete discharge: 45 Discharge Summary Reason For Visit: ANEMIA Current Active Problems Adenocarcinoma of sigmoid colon (Acute) Anemia (Acute) Autoimmune hemolytic anemia (Acute) Bacteremia due to Streptococcus pneumoniae (Acute) Colonic mass (Acute) Leukopenia (Acute) Hypertension (Chronic) Condition: Stable - Instructions Diet, Activity, Other Instructions: You were in the hospital for low blood counts and a blood infection. You were found to have colon cancer. Follow-up: 1. Please follow up with your primary care provider within 1 week for post hospital follow up. If you do not have a primary care provider, contact information for Dr. Aldrich has been provided for you. Please call to make appointments. 2. Please follow up with the surgeon within 1 week for evaluation of the colon cancer. An appointment will be made by the global safety officer, who will call you. 3. Please follow up with the mosaicist within 1 week for post hospital evaluation and evaluation of your blood counts. Contact information has been provided. Medications: Start taking toprol xl 25 mg daily and norvasc 10 mg daily for your blood pressure. Take ceftin 500 mg twice per day for 4 more days to complete your antibiotic course for your infection. *If you have chest pain, shortness of breath, worsening constipation, rectal bleeding, worsening yellowing of your skin, or any new/worsening symptoms please come back to the hospital immediately. Referrals: Helder Aldrich MD [Staff Physician] - Wesley Cronin MD [Staff Physician] - Desi Perales MD [Staff Physician] - Jessica Segal MD [Primary Care Provider] - Disposition: HOME - Home Medications Comprehensive Discharge Medication List: Ambulatory Orders Amlodipine Besylate [Norvasc -] 10 mg PO DAILY #30 tablet 12/21/17 Cefuroxime Axetil [Ceftin -] 500 mg PO Q12H #8 tablet 12/21/17 Metoprolol Succinate [Toprol XL -] 25 mg PO DAILY #30 tab.sr.24h 12/21/17 This patient is new to me today: No Emergency Visit: Yes ED Registration Date: 12/07/17 Care time: The patient presented to the Emergency Department on the above date and was hospitalized for further evaluation of their emergent condition. Critical Care patient: No - Discharge Referral Referred to [facility] No
[2017-12-21 17:14] VITALS: BP 134/65; PULSE 74; TEMP 98
[2017-12-26 00:09] LABS: ATYPICAL pANCA <1:20 titer (Neg:<1:20); C-ANCA <1:20 titer (Neg:<1:20); P-ANCA <1:20 titer (Neg:<1:20); PROTEINASE-3 ANTIBODY <3.5 U/mL (0.0-3.5)
--- NOTE | 2017-12-28 12:28 | PN ---
Progress Note (short form) - Note Progress Note: Today on 12/28 sister came to [address] floor stating she need a letter stating she was hospitalized and has diagnosis of colon cancer. Re-discussed with the sister the importance of follow-up. She verbalized understanding
== END 2017-12-21 21:40 | disposition home or self-care (01) | DRG 240 ==
LOC: JER 14:27 → JERBED 17:59 → J7W 20:42
PROVIDERS: ADMIT Internal Medicine; ATTEND Emergency Medicine
PROC: 30233H1 Transfusion of Nonautologous Whole Blood into Peripheral Vein, Percutaneous Approach (ICD-10-PCS; 2017-12-07)
PROC: 07DR3ZX Extraction of Iliac Bone Marrow, Percutaneous Approach, Diagnostic (ICD-10-PCS; 2017-12-09)
PROC: 0DBN8ZX Excision of Sigmoid Colon, Via Natural or Artificial Opening Endoscopic, Diagnostic (ICD-10-PCS; principal; 2017-12-14 12:00)
DX: C18.7 Malignant neoplasm of sigmoid colon (principal); D70.9 Neutropenia, unspecified; R78.81 Bacteremia; D59.1 Other autoimmune hemolytic anemias; E87.5 Hyperkalemia; N39.0 Urinary tract infection, site not specified; E11.65 Type 2 diabetes mellitus with hyperglycemia; B96.1 Klebsiella pneumoniae [K. pneumoniae] as the cause of diseases classified elsewhere; R10.13 Epigastric pain; I10 Essential (primary) hypertension; R63.4 Abnormal weight loss; Z68.24 Body mass index [BMI] 24.0-24.9, adult; F70 Mild intellectual disabilities; Z91.14 Patient's other noncompliance with medication regimen; K59.00 Constipation, unspecified; D72.819 Decreased white blood cell count, unspecified; Z79.4 Long term (current) use of insulin; R91.8 Other nonspecific abnormal finding of lung field; N21.0 Calculus in bladder; R50.9 Fever, unspecified; R00.0 Tachycardia, unspecified
CPT/HCPCS: 36415; 36430; 71045-TC-FY; 71260-TC; 74177-TC; 76700-TC; 78226-TC; 80048; 80053; 80074; 80076; 81003; 81015; 82150; 82248; 82272; 82378; 82595; 82607; 82728; 82747; 82784; 82962; 82977; 83010; 83036; 83520; 83540; 83550; 83615; 83690; 83735; 84100; 84155; 84165; 84439; 84443; 85014; 85025; 85044; 85384; 85610; 85651; 85730; 86038; 86140; 86157; 86160; 86162; 86225; 86235; 86256; 86308; 86334; 86480; 86644; 86645; 86664; 86738; 86747; 86850; 86880; 86900; 86901; 86922; 87040; 87077; 87086; 87186; 87389; 88305-TC; 93005; 93010; 93306-TC; 97116-GP; 97161-GP; 99285-25; A9537; J7030; P9038; P9058